=== PATIENT | male | born 1950 | race Caucasian/White ===

== ENCOUNTER 2016-11-02 09:05 | Outpatient (CLI) | payer MEDICARE, OTHER ==
[~2016-11-02 09:05] MED LIST: ALBUTEROL NEB 2.5 MG/3 ML INH SCH
== END 2016-11-02 09:06 | disposition home or self-care (01) ==
LOC: RT 09:05
PROVIDERS: ATTEND Specialist
DX: J45.909 Unspecified asthma, uncomplicated (principal); J44.9 Chronic obstructive pulmonary disease, unspecified
CPT/HCPCS: 94060; 94729; J7613

== ENCOUNTER 2017-07-26 11:17 | Emergency (ER) | payer MEDICARE, OTHER ==
[2017-07-26 11:39] LABS: BASOPHILS # (AUTO) 0.2 10^3/uL (0.0-0.1); BASOPHILS % (AUTO) 2.5 %; EOSINOPHILS % (AUTO) 0.3 %; HGB - HEMOGLOBIN 16.9 g/dL (14.0-18.0); LYMPHOCYTES # (AUTO) 1.2 10^3/uL (1.5-3.5); LYMPHOCYTES % (AUTO) 11.8 %; MEAN CORPUSCULAR HEMOGLOBIN 37.5 pg (27.0-31.0); MEAN CORPUSCULAR HGB CONC 34.5 g/dL (32.0-36.0); MEAN CORPUSCULAR VOLUME 108.7 fL (80.0-94.0); MONOCYTES # (AUTO) 0.6 10^3/uL (0.0-1.0); NEUTROPHILS # (AUTO) 7.8 10^3/uL (1.5-6.6); NEUTROPHILS % (AUTO) 79.4 %; PLT - PLATELET COUNT 305 10^3/uL (130-450); RED BLOOD COUNT 4.51 10^6/uL (4.70-6.10); RED CELL DISTRIBUTION WIDTH 15.2 % (12.0-15.0); WHITE BLOOD COUNT 9.8 x10^3/uL (4.8-10.8)
--- NOTE | 2017-07-26 11:41 | ED Physician Documentation ---
PD HPI CHEST PAIN - Stated complaint Stated Complaint: CHEST PX - Chief complaint Chief Complaint: Cardiac - History obtained from History obtained from: Patient - History of Present Illness Timing - onset: How many hours ago (2-3), Today Timing - onset during: Rest Timing - duration: Hours Timing - details: Abrupt onset, Still present Quality: Pressure, Tightness, Aching, Pain Location: Substernal, Left chest Radiation: Back. No: Jaw, Neck, Left upper extremity Improved by: No: Rest Worsened by: Exertion (worse walking around). No: Inspiration, Movement, Palpation Associated symptoms: Shortness of air, Nausea, General Weakness. No: Vomiting, Feeling faint / dizzy, Palpitations Similar symptoms before: Has not had sx before (chest pressure was just this morning. Has had a feeling of general weakness, nausea, poor appetite, and some vomiting the past 5-6 days. No hematemesis. no diarrhea. Has had some epigastric stomach pains with eating. No chest pains with that though.) Recently seen: Not recently seen Review of Systems Constitutional: denies: Fever, Chills Nose: denies: Rhinorrhea / runny nose, Congestion Throat: denies: Sore throat Cardiac: denies: Palpitations, Pedal edema, Calf pain Respiratory: denies: Dyspnea, Cough, Wheezing GI: reports: Abdominal Pain, Nausea, Vomiting. denies: Diarrhea, Hematemesis, Bloody / black stool : denies: Dysuria, Frequency Skin: denies: Rash, Lesions Neurologic: reports: Generalized weakness, Near syncope. denies: Focal weakness , Numbness, Confused, Altered mental status Psychiatric: denies: Depressed, Insomnia Endocrine: denies: Weight loss Immunocompromised: denies: Immunocompromised PD PAST MEDICAL HISTORY - Past Medical History Past Medical History: Yes Cardiovascular: Hypertension Respiratory: Asthma Neuro: None Endocrine/Autoimmune: None - Past Surgical History Past Surgical History: No - Present Medications Home Medications: Ambulatory Orders Medication Instructions Recorded Confirmed Albuterol Sulfate 05/19/15 05/19/15 Magnesium Oxide [Magnesium] 07/26/17 hydroCHLOROthiazide 07/26/17 [Hydrochlorothiazide] - Allergies Allergies/Adverse Reactions: Allergies Allergy/AdvReac Type Severity Reaction Status Date / Time No Known Drug Allergies Allergy Verified 05/19/15 07:10 - Living Situation Living Situation: reports: With spouse/s.o. Living Arrangement: reports: At home - Social History Does the pt smoke?: No Smoking Status: Never smoker Does the pt drink ETOH?: Yes ETOH Use: Beer (2-3 drinks nightly) Does the pt have substance abuse?: No - Family History Family history: reports: CAD - POLST Patient has POLST: No PD ED PE NORMAL - Vitals Vital signs reviewed: Yes - General General: Alert and oriented X 3, No acute distress, Well developed/nourished - HEENT HEENT: Atraumatic, Pharynx benign - Neck Neck: Supple, no meningeal sign, No adenopathy - Cardiac Cardiac: RRR, No murmur - Respiratory Respiratory: Clear bilaterally - Abdomen Abdomen: Normal bowel sounds, Soft, Non distended, No organomegaly, Other (mild tender epigastric area. Not tender RUQ; negative Screven sign.) - Male Male : Deferred - Rectal Rectal: Deferred - Back Back: No CVA TTP - Derm Derm: Normal color - Extremities Extremities: No deformity, No tenderness to palpate, Normal ROM s pain, No edema - Neuro Neuro: Alert and oriented X 3, No motor deficit, Normal speech Results - Vitals Vitals: Vital Signs - 24 hr 07/26/17 07/26/17 07/26/17 11:21 12:37 14:09 Temperature 36.4 C L Heart Rate 70 71 66 Respiratory 20 16 16 Rate Blood Pressure 161/106 H 103/77 116/91 H O2 Saturation 95 92 100 Oxygen O2 Source Room air - EKG (time done) 11:21 Rate: Rate (enter#) (57) Rhythm: Sinus bradycardia [place]: Normal Intervals: Normal [place] QRS: Normal Ischemia: Normal ST segments. No: ST elevation c/w ischemia, ST depression - Labs Labs: Laboratory Tests 07/26/17 07/26/17 07/26/17 11:25 11:25 11:25 WBC 9.8 RBC 4.51 L Hgb 16.9 Hct 49.0 MCV 108.7 H MCH 37.5 H MCHC 34.5 RDW 15.2 H Plt Count 305 MPV 7.0 L Neut # 7.8 H Lymph # 1.2 L [place] # 0.6 Eos # 0.0 Baso # 0.2 H Absolute Nucleated RBC 0.00 Nucleated RBC % 0.0 Sodium 129 L Potassium 3.3 L Chloride 86 L Carbon Dioxide 31 Anion Gap 12.0 BUN 9 Creatinine 0.9 Estimated GFR (MDRD) 84 L Glucose 109 H Calcium 9.6 Magnesium Total Bilirubin 1.6 H AST 44 H ALT 34 Alkaline Phosphatase 102 Troponin I 0.57 H* B-Natriuretic Peptide Total Protein 8.5 H Albumin 4.7 Globulin 3.8 Albumin/Globulin Ratio 1.2 Lipase 24 Ethyl Alcohol 07/26/17 07/26/17 07/26/17 11:25 11:25 13:36 WBC RBC Hgb Hct MCV MCH MCHC RDW Plt Count MPV Neut # Lymph # [place] # Eos # Baso # Absolute Nucleated RBC Nucleated RBC % Sodium Potassium Chloride Carbon Dioxide Anion Gap BUN Creatinine Estimated GFR (MDRD) Glucose Calcium Magnesium 2.1 Total Bilirubin AST ALT Alkaline Phosphatase Troponin I 1.99 H* B-Natriuretic Peptide 72 Total Protein Albumin Globulin Albumin/Globulin Ratio Lipase Ethyl Alcohol < 5.0 - Rads (name of study) chest Radiology: Prelim report reviewed, EMP read contemporaneously (no acute process. No CHF. heart size normal. Normal mediastinum. ) PD MEDICAL DECISION MAKING - ED course Complexity details: reviewed results (has elevated troponin concerning for ACS. will treat with aspirin, NTG, heparin, and beta nickolas. ), considered differential, d/w patient, d/w hospice care consultant ([facility], who accepts transfer.) Departure - Departure Disposition: 02 Transfer Acute Care Hosp Clinical Impression: Elevated troponin, Dehydration, Non-STEMI (non-ST elevated myocardial infarction) Chest pain Qualifiers: Chest pain type: precordial pain Qualified Code(s): R07.2 - Precordial pain Gastritis, acute Qualifiers: Gastritis type: unspecified gastritis Gastritis bleeding: without bleeding Qualified Code(s): K29.00 - Acute gastritis without bleeding Condition: Stable Record reviewed to determine appropriate education?: Yes
[2017-07-26 11:51] LABS: ALBUMIN 4.7 g/dL (3.2-5.5); ALBUMIN/GLOBULIN RATIO 1.2 (1.0-2.2); BILIRUBIN,TOTAL 1.6 mg/dL (0.2-1.0); CALCIUM 9.6 mg/dL (8.5-10.3); CREATININE 0.9 mg/dL (0.6-1.2); TOTAL PROTEIN 8.5 g/dL (6.7-8.2)
[2017-07-26] MEDS ORDERED: SODIUM CHLORIDE 0.9% 1,000 ML IV ONE (12:14)
[2017-07-26] MEDS ORDERED: ONDANSETRON 4 MG/2 ML VIAL IVP STA (12:14)
[2017-07-26] MEDS ORDERED: NITROGLYCERIN SL 0.4 MG TABLET SL STA (12:14)
[2017-07-26] MEDS ORDERED: FAMOTIDINE 20 MG/50 ML 50 ML IV ONE (12:15)
[2017-07-26] MEDS ORDERED: MAG HYDROX/AL HYDROX/SIMETH 30 ML UDC PO STA (12:15)
[2017-07-26] MEDS ORDERED: METOPROLOL 5 MG/5 ML VIAL IVP STA (12:17)
[2017-07-26] MEDS: NITROGLYCERIN 2% PASTE TOP STA ×2 (12:30→13:07)
[2017-07-26 12:37] LABS: MAGNESIUM 2.1 mg/dL (1.7-2.8)
--- NOTE | 2017-07-26 12:43 | XRAY Report ---
EXAM: CHEST RADIOGRAPHY EXAM DATE: 07/26/2017 11:59 AM. CLINICAL HISTORY: Chest pain. COMPARISON: Chest x-ray 05/04/2015. TECHNIQUE: 2 views. FINDINGS: Lungs/Pleura: No focal opacities evident. No pleural effusion. No pneumothorax. Normal volumes. Mediastinum: Heart and mediastinal contours are unremarkable. Other: None. IMPRESSION: Normal 2-view chest radiography. [facility] Referring Provider Line: [phone] SITE ID: [id number]
[2017-07-26] MEDS ORDERED: HEPARIN 25000UNITS/500ML (D5W) 25,000 UNIT/500 ML BAG IV STA (12:55)
[2017-07-26] MEDS ORDERED: HEPARIN 5,000 UNIT/ML VIAL IVP STA (12:55)
[2017-07-26 15:32] VITALS: BP 114/73
== END 2017-07-26 15:23 | disposition short-term general hospital (02) ==
LOC: ED 11:17
DX: I21.4 Non-ST elevation (NSTEMI) myocardial infarction (principal); K29.00 Acute gastritis without bleeding; R07.2 Precordial pain; I10 Essential (primary) hypertension; J45.909 Unspecified asthma, uncomplicated
CPT/HCPCS: 36415; 71046; 80053; 83690; 83735; 83880; 84484; 85025; 93005; 96365; 96366; 96367; 96375; 96376; 99284; 99285; A9270; G0480; 80320

== ENCOUNTER 2017-07-26 15:25 | Outpatient (CLI) | payer MEDICARE, OTHER | END 2017-07-26 15:26 | disposition short-term general hospital (02) | LOC: EMS 15:25 | PROVIDERS: ATTEND Surgery | DX: R07.9 Chest pain, unspecified (principal) | CPT/HCPCS: A0425; A0426 ==

== ENCOUNTER 2017-09-09 13:09 | Emergency (ER) | payer MEDICARE, OTHER ==
[2017-09-09] MEDS ORDERED: SODIUM CHLORIDE 0.9% 500 ML IV ONE (13:20)
--- NOTE | 2017-09-09 13:22 | ED Physician Documentation ---
History of Present Illness - Stated complaint Stated Complaint: LOW BP - History obtained from History obtained from: Patient, Family () - History of Present Illness Timing: Other (He had an an STEMI on July 26, he had a cath with some for blockage in the posterior part of the heart but he was not intervened upon per his description. He was started on metoprolol on a very low-dose of lisinopril. Ever since then he has been feeling woozy and lightheaded with some episodes of hypotension, he had the lowest number he had seen today at 81/ 42 at home. Of note prior to that at home was 113 systolic, he does not remember the diastolic, and he did take his medications including lisinopril at 2.5 mg and metoprolol. He denies any chest pain or shortness of breath, no pedal edema. He does have a chronic cough and nocturia.) Review of Systems Constitutional: reports: Fatigue. denies: Fever, Chills Cardiac: denies: Chest pain / pressure, Palpitations, Pedal edema, Calf pain Respiratory: denies: Dyspnea, Cough GI: denies: Abdominal Pain, Bloody / black stool PD PAST MEDICAL HISTORY - Past Medical History Cardiovascular: Hypertension Respiratory: Asthma Endocrine/Autoimmune: None - Past Surgical History Past Surgical History: No - Present Medications Home Medications: Ambulatory Orders Medication Instructions Recorded Confirmed Albuterol Sulfate 0.63 mg IN PRN PRN 05/19/15 09/09/17 Magnesium Oxide [Magnesium] 500 mg PO DAILY 07/26/17 09/09/17 Aspirin [Adult Aspirin Regimen] 81 mg PO DAILY 09/09/17 09/09/17 Atorvastatin Calcium 40 mg PO DAILY PM 09/09/17 09/09/17 Lisinopril 2.5 mg PO DAILY 09/09/17 09/09/17 Metoprolol Succinate/Hctz 25 mg PO DAILY 09/09/17 09/09/17 [Metoprolol ER-Hctz 25-12.5 mg] - Allergies Allergies/Adverse Reactions: Allergies Allergy/AdvReac Type Severity Reaction Status Date / Time No Known Drug Allergies Allergy Verified 09/09/17 13:23 - Social History Does the pt smoke?: No Smoking Status: Never smoker Does the pt drink ETOH?: Yes Does the pt have substance abuse?: No - POLST Patient has POLST: No PD ED PE NORMAL - Vitals Vital signs reviewed: Yes - General General: Alert and oriented X 3, No acute distress - HEENT HEENT: PERRL, EOMI - Neck Neck: Supple, no meningeal sign, No bony TTP - Cardiac Cardiac: RRR, No murmur - Respiratory Respiratory: No respiratory distress, Clear bilaterally - Abdomen Abdomen: Non tender - Back Back: No CVA TTP, No spinal TTP - Extremities Extremities: No edema, No calf tenderness / cord - Neuro Neuro: Alert and oriented X 3, Normal speech - Psych Psych: Normal mood, Normal affect Results - Vitals Vitals: Vital Signs - 24 hr 09/09/17 13:15 Temperature 36.1 C L Heart Rate 64 Respiratory 18 Rate Blood Pressure 112/66 O2 Saturation 97 Oxygen O2 Source Room air - EKG (time done) 1324 Rate: Rate (enter#) (60) Rhythm: NSR (with occ PAC) [place]: Normal QRS: Low voltage Ischemia: Non specific changes (Compared with the last EKG on the chart dated July 26 of this year, he had slight ST depression in the anterior precordial leads that has since resolved which is not unsurprising since he was having and a non-STEMI then.) - Labs Labs: Laboratory Tests 09/09/17 09/09/17 13:25 13:25 WBC 7.3 RBC 3.49 L Hgb 13.3 L Hct 38.7 L MCV 110.8 H MCH 38.0 H MCHC 34.3 RDW 16.1 H Plt Count 311 MPV 7.1 L Manual Slide Review Indicated Sodium 126 L Potassium 4.3 Chloride 91 L Carbon Dioxide 28 Anion Gap 7.0 BUN 10 Creatinine 0.9 Estimated GFR (MDRD) 84 L Glucose 100 Calcium 9.1 Total Bilirubin 1.4 H AST 44 H ALT 34 Alkaline Phosphatase 77 Total Protein 6.5 L Albumin 3.5 Globulin 3.0 Albumin/Globulin Ratio 1.2 Lipase 31 PD MEDICAL DECISION MAKING - ED course ED course: 67-year-old gentleman with hypotension at home, probably from new medications. He was observed in the department and he was without's complaints or signs of distress, and his blood pressures were normal to low normal here. He was advised to stop lisinopril. We also discussed the hyponatremia, high MCV, and mildly elevated liver enzymes. He does drink several glasses of wine a daily and it was advised him that he decrease his alcohol intake. - Sepsis Event Vital Signs: Vital Signs - 24 hr 09/09/17 13:15 Temperature 36.1 C L Heart Rate 64 Respiratory 18 Rate Blood Pressure 112/66 O2 Saturation 97 Oxygen O2 Source Room air Departure - Departure Disposition: 01 Home, Self Care Clinical Impression: Alcoholic liver damage Hypotension Qualifiers: Hypotension type: hypotension due to drug Qualified Code(s): I95.2 - Hypotension due to drugs Condition: Good Record reviewed to determine appropriate education?: Yes Comments: Stop the lisinopril. Follow-up with your generation technician, next available appointment. If you continue to have low blood pressures you can decrease the metoprolol to half a pill twice a day. Decrease your alcohol intake. Return if worse or if new symptoms develop.
[2017-09-09 13:44] LABS: BASOPHILS % (AUTO) 0.6 %; EOSINOPHILS % (AUTO) 0.6 %; HGB - HEMOGLOBIN 13.3 g/dL (14.0-18.0); LYMPHOCYTES # (AUTO) 1.2 10^3/uL (1.5-3.5); LYMPHOCYTES % (AUTO) 16.5 %; MEAN CORPUSCULAR HGB CONC 34.3 g/dL (32.0-36.0); MEAN CORPUSCULAR VOLUME 110.8 fL (80.0-94.0); MEAN PLATELET VOLUME 7.1 fL (7.4-11.4); MONOCYTES # (AUTO) 1.1 10^3/uL (0.0-1.0); MONOCYTES % (AUTO) 15.7 %; NEUTROPHILS # (AUTO) 4.9 10^3/uL (1.5-6.6); NEUTROPHILS % (AUTO) 66.6 %; PLT - PLATELET COUNT 311 10^3/uL (130-450); RED BLOOD COUNT 3.49 10^6/uL (4.70-6.10); RED CELL DISTRIBUTION WIDTH 16.1 % (12.0-15.0); WHITE BLOOD COUNT 7.3 x10^3/uL (4.8-10.8)
[2017-09-09 14:02] LABS: ALBUMIN 3.5 g/dL (3.2-5.5); ALBUMIN/GLOBULIN RATIO 1.2 (1.0-2.2); BILIRUBIN,TOTAL 1.4 mg/dL (0.2-1.0); CALCIUM 9.1 mg/dL (8.5-10.3); CREATININE 0.9 mg/dL (0.6-1.2); TOTAL PROTEIN 6.5 g/dL (6.7-8.2)
[2017-09-09 14:21] LABS: PLATELET ESTIMATE, MANUAL NORMAL (130-450,000) (NORMAL); PLATELET MORPHOLOGY 1+ LARGE PLATELETS (NORMAL)
[2017-09-09 14:22] LABS: RBC MORPHOLOGY (MULTIPLE) 3+ MACROCYTOSIS (NORMAL)
[2017-09-09 14:38] VITALS: BP 112/67
== END 2017-09-09 14:43 | disposition home or self-care (01) ==
LOC: ED 13:09
DX: I95.2 Hypotension due to drugs (principal); K70.9 Alcoholic liver disease, unspecified; I10 Essential (primary) hypertension; Z79.82 Long term (current) use of aspirin
CPT/HCPCS: 36415; 80053; 83690; 85025; 93005; 96360; 99283; 99284

== ENCOUNTER 2018-03-23 08:57 | Emergency (ER) | payer MEDICARE, OTHER ==
[2018-03-23 11:49] LABS: BASOPHILS % (AUTO) 0.4 %; EOSINOPHILS % (AUTO) 0.3 %; LYMPHOCYTES # (AUTO) 1.2 10^3/uL (1.5-3.5); LYMPHOCYTES % (AUTO) 14.8 %; MEAN CORPUSCULAR HGB CONC 34.2 g/dL (32.0-36.0); MEAN CORPUSCULAR VOLUME 108.4 fL (80.0-94.0); MEAN PLATELET VOLUME 7.5 fL (7.4-11.4); MONOCYTES # (AUTO) 1.4 10^3/uL (0.0-1.0); MONOCYTES % (AUTO) 16.5 %; NEUTROPHILS # (AUTO) 5.6 10^3/uL (1.5-6.6); PLT - PLATELET COUNT 274 10^3/uL (130-450); RED BLOOD COUNT 3.77 10^6/uL (4.70-6.10); RED CELL DISTRIBUTION WIDTH 13.6 % (12.0-15.0); WHITE BLOOD COUNT 8.2 x10^3/uL (4.8-10.8)
--- NOTE | 2018-03-23 11:53 | XRAY Report ---
Reason: cellulitis with necrosis concern subcut air Procedure Date: 03/23/2018 Accession Number: [id number] / [id number] Procedure: XR - Foot 3 View LT CPT Code: FULL RESULT: EXAM: LEFT FOOT RADIOGRAPHY EXAM DATE: 03/23/2018 11:36 AM. CLINICAL HISTORY: Cellulitis with necrosis. Concerned about a cut. COMPARISON: XR FOOT COMPLETE MIN 3 VIEWS 05/07/2009 1:24 PM LT. FOOT 01/12/2006 12:27 AM. TECHNIQUE: 3 views. FINDINGS: Bones: No osseous sclerosis or pat destruction is identified. No fractures or bone lesions. Joints: Normal. No subluxations. Soft Tissues: Bandage material is seen at the base of the great toe. No definite soft tissue defect or soft tissue gas is identified. Vascular calcifications are noted. IMPRESSION: No evidence of soft tissue gas or pat osseous destruction. [facility]
[2018-03-23 11:58] LABS: CALCIUM 8.8 mg/dL (8.5-10.3); CREATININE 0.6 mg/dL (0.6-1.2)
[2018-03-23] MEDS ORDERED: ceFAZolin 1 GM in SODIUM CHLORIDE 0.9% MINIBAG 100 ML IV STA (12:37)
[2018-03-23] MEDS ORDERED: TETANUS/DIPHTHERIA/PERTUSSIS 0.5 ML SYRINGE IM ONE (12:37)
--- NOTE | 2018-03-23 12:40 | ED Physician Documentation ---
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 - no feeling in feet states hit R foot in bathroom a few days ago today noticed sig increased redness and blood blister no fever chills Review of Systems Constitutional: denies: Fever, Chills Musculoskeletal: reports: Extremity swelling Endocrine: denies: Easy bruising / bleeding Immunocompromised: denies: Immunocompromised PD PAST MEDICAL HISTORY - Past Medical History Cardiovascular: Hypertension Respiratory: Asthma Endocrine/Autoimmune: None - Past Surgical History Past Surgical History: No - Present Medications Home Medications: Ambulatory Orders Medication Instructions Recorded Confirmed Albuterol Sulfate 0.63 mg IN PRN PRN 05/19/15 09/09/17 Magnesium Oxide [Magnesium] 500 mg PO DAILY 07/26/17 09/09/17 Aspirin [Adult Aspirin Regimen] 81 mg PO DAILY 09/09/17 09/09/17 Atorvastatin Calcium 40 mg PO DAILY PM 09/09/17 09/09/17 Lisinopril 2.5 mg PO DAILY 09/09/17 09/09/17 Metoprolol Succinate/Hctz 25 mg PO DAILY 09/09/17 09/09/17 [Metoprolol ER-Hctz 25-12.5 mg] Amoxicillin 500 mg PO Q8HR #30 capsule 03/23/18 - Allergies Allergies/Adverse Reactions: Allergies Allergy/AdvReac Type Severity Reaction Status Date / Time No Known Drug Allergies Allergy Verified 03/23/18 09:16 - Social History Does the pt smoke?: No Smoking Status: Never smoker Does the pt drink ETOH?: Yes Does the pt have substance abuse?: No - Immunizations Immunizations are current?: Yes - POLST Patient has POLST: No PD ED PE NORMAL - Vitals Vital signs reviewed: Yes - Neck Neck: Supple, no meningeal sign - Cardiac Cardiac: RRR - Respiratory Respiratory: No respiratory distress, Clear bilaterally - Extremities Extremities: Other (RLE :foot warm, + pulses and cap refill, hemorrhagic bullae over 1st MTP and erythema to entire foot with small streak part way up the peacock, no palp crepitus) Results - Vitals Vitals: Vital Signs - 24 hr 03/23/18 09:13 Temperature 36.1 C L Heart Rate 90 Respiratory 18 Rate Blood Pressure 115/77 O2 Saturation 95 Oxygen O2 Source Room air - Labs Labs: Laboratory Tests 03/23/18 03/23/18 03/23/18 11:25 11:25 11:25 WBC 8.2 RBC 3.77 L Hgb 14.0 Hct 40.9 L MCV 108.4 H MCH 37.0 H MCHC 34.2 RDW 13.6 Plt Count 274 MPV 7.5 Neut # (Auto) 5.6 Lymph # (Auto) 1.2 L [place] # (Auto) 1.4 H Eos # (Auto) 0.0 Baso # (Auto) 0.0 Absolute Nucleated RBC 0.00 Nucleated RBC % 0.0 Sodium 131 L Potassium 3.9 Chloride 98 L Carbon Dioxide 24 Anion Gap 9.0 BUN 8 Creatinine 0.6 Estimated GFR (MDRD) 134 Glucose 99 Lactic Acid 1.4 Calcium 8.8 - Rads (name of study) foot Radiology: See rad report (no gas or bony destruction) PD MEDICAL DECISION MAKING - ED course ED course: asked ortho Dr Jasos to come see pt - concern for nec fasc - he saw pt and does not feel this is nec fasc - he drained the bullae and dressed the foot and rec pt may be dced home on amox with 48 hr ortho fup - see consult Departure - Departure Disposition: 01 Home, Self Care Clinical Impression: Traumatic bulla Cellulitis Qualifiers: Site of cellulitis: extremity Site of cellulitis of extremity: lower extremity Laterality: right Qualified Code(s): L03.115 - Cellulitis of right lower limb Condition: Good Instructions: ED Infec Skin Cellulitis Follow-Up: Sunitha Jasso MD [Provider Admit Priv/Credential] - (Friday in clinic - call at 8 AM Fri to schedule) Prescriptions: Amoxicillin 500 mg PO Q8HR #30 capsule Comments: Keep the foot elevated as much as possible. Wear the post op shoe for protection. Take the antibiotic as prescribed. Follow up with Dr Jasso Fri. Return to the ER if worse in any way
--- NOTE | 2018-03-23 13:26 | ONCOLOGY / HEMATOLOGY ---
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 TD: 03/23/2018 13:24 MTDD
[2018-03-23 17:09] VITALS: BP 147/54
== END 2018-03-23 13:14 | disposition home or self-care (01) ==
LOC: ED 08:57
DX: S90.421A Blister (nonthermal), right great toe, initial encounter (principal); W22.8XXA Striking against or struck by other objects, initial encounter; L03.115 Cellulitis of right lower limb; G62.1 Alcoholic polyneuropathy; I10 Essential (primary) hypertension; Z79.82 Long term (current) use of aspirin
CPT/HCPCS: 36415; 80048; 83605; 85025; 87040; 90471; 96374; 99283

== ENCOUNTER 2018-07-20 07:18 | Emergency (ER) | payer MEDICARE, OTHER ==
[2018-07-20] MEDS ORDERED: KETOROLAC 60 MG/2 ML VIAL IM STA (07:34)
--- NOTE | 2018-07-20 07:37 | ED Physician Documentation ---
History of Present Illness - Stated complaint Stated Complaint: RT LEG PX - Chief complaint Chief Complaint: Trauma Ext - History obtained from History obtained from: Patient - History of Present Illness Timing: How many days ago (10) Pain level max: 8 Pain level now: 6 - Additonal information Additional information: 67-year-old male was getting up to use the bathroom approximately 10 days ago when he fell landing on the right hip. Had pain initially, this resolved after a day or 2. Over the past 3 days has started to get pain in the right hip again. Took Motrin last night without relief. Is using a cane in his right hand to help him walk. He has not had any recurrent falls. No head injuries. Better with rest and worse with movement. Review of Systems Constitutional: denies: Fever, Chills GI: denies: Vomiting : denies: Incontinent Musculoskeletal: denies: Neck pain, Back pain Neurologic: denies: Focal weakness, Numbness, Headache PD PAST MEDICAL HISTORY - Past Medical History Cardiovascular: Hypertension Respiratory: Asthma Endocrine/Autoimmune: None - Past Surgical History Past Surgical History: No - Present Medications Home Medications: Ambulatory Orders Medication Instructions Recorded Confirmed Albuterol Sulfate 0.63 mg IN PRN PRN 05/19/15 09/09/17 Magnesium Oxide [Magnesium] 500 mg PO DAILY 07/26/17 09/09/17 Aspirin [Adult Aspirin Regimen] 81 mg PO DAILY 09/09/17 09/09/17 Atorvastatin Calcium 40 mg PO DAILY PM 09/09/17 09/09/17 Lisinopril 2.5 mg PO DAILY 09/09/17 09/09/17 Metoprolol Succinate/Hctz 25 mg PO DAILY 09/09/17 09/09/17 [Metoprolol ER-Hctz 25-12.5 mg] Amoxicillin 500 mg PO Q8HR #30 capsule 03/23/18 Cyclobenzaprine [Flexeril] 10 mg PO TID PRN #20 tablet 07/20/18 Hydrocodone/Acetaminophen 1 - 2 each PO Q6H PRN #14 tablet 07/20/18 [Hydrocodon-Acetaminophen 5-325] Meloxicam [Mobic] 15 mg PO DAILY PRN #20 tablet 07/20/18 - Allergies Allergies/Adverse Reactions: Allergies Allergy/AdvReac Type Severity Reaction Status Date / Time No Known Drug Allergies Allergy Verified 07/20/18 07:28 - Social History Does the pt smoke?: No Smoking Status: Never smoker Does the pt drink ETOH?: Yes Does the pt have substance abuse?: No - Immunizations Immunizations are current?: Yes - POLST Patient has POLST: No PD ED PE NORMAL - Vitals Vital signs reviewed: Yes - General General: Alert and oriented X 3, No acute distress - HEENT HEENT: Moist mucous membranes - Neck Neck: Supple, no meningeal sign - Cardiac Cardiac: RRR - Respiratory Respiratory: No respiratory distress, Clear bilaterally - Back Back: No spinal TTP - Derm Derm: Warm and dry, No rash - Extremities Extremities: Other (Tender to palpation over the right hip, greater trochanter. No pain with internal and external rotation. Mild pain with passive range of motion. Most of the pain is with active range of motion. Neurovascular intact. Otherwise normal exam of the right lower extremity.) - Neuro Neuro: Alert and oriented X 3 - Psych Psych: Normal mood, Normal affect Results - Vitals Vitals: Vital Signs - 24 hr 07/20/18 07/20/18 07:20 09:37 Temperature 36.0 C L Heart Rate 92 89 Respiratory 18 16 Rate Blood Pressure 120/78 144/83 H O2 Saturation 97 97 Oxygen O2 Source Room air - Rads (name of study) Right hip x-ray Radiology: Prelim report reviewed, EMP read contemporaneously, See rad report (Acute minimally displaced fracture of the greater trochanter of the right pr oximal femur. No femoral neck fracture identified. 2. Bones appear mildly diffusely demineralized. ) PD MEDICAL DECISION MAKING - ED course Complexity details: reviewed results, re-evaluated patient, considered differential, d/w patient, d/w regulatory services consultant ED course: 59-year-old male presents to the emergency department after a fall onto the right hip 10 days ago. Appears to have a minimally displaced fracture of the greater trochanter of the right proximal femur. No femoral neck fracture identified. Discussed the case with Dr. Alexander, orthopedics on-call who recommends weightbearing as tolerated and follow up in clinic. Patient was given a walker. Patient counseled regarding signs and symptoms for which I believe and urgent re-evaluation would be necessary. Patient with good understanding of and agreement to plan and is comfortable going home at this time This document was made in part using voice recognition software. While efforts are made to proofread this document, sound alike and grammatical errors may occur. Departure - Departure Disposition: 01 Home, Self Care Clinical Impression: Greater trochanter fracture Qualifiers: Encounter type: initial encounter Fracture type: closed Fracture alignment: displaced Laterality: right Qualified Code(s): S72.111A - Displaced fracture of greater trochanter of right femur, initial encounter for closed fracture Condition: Good Instructions: ED Fx Lower Ext Follow-Up: Provider,Other [Primary Care Provider] - Within 1 week [facility] [Provider Group] - Within 1 week Prescriptions: Cyclobenzaprine [Flexeril] 10 mg PO TID PRN #20 tablet PRN Reason: Spasms Hydrocodone/Acetaminophen [Hydrocodon-Acetaminophen 5-325] 1 - 2 each PO Q6H PRN #14 tablet PRN Reason: pain Meloxicam [Mobic] 15 mg PO DAILY PRN #20 tablet PRN Reason: pain Comments: Your x-ray shows a small fracture to your greater trochanter which is in your hip but is not an operative fracture. These are stable. You can bear weight as tolerated. Follow-up with your doctor for further care. The muscle relaxants should help your pain as well. Do not drive or operate heavy machinery while taking the flexeril Do not drink alcohol or drive while on narcotic pain medicine. Note that many narcotic pain relievers also contain tylenol/acetaminophen. Please ensure that your total dose of acetaminophen from all sources does not exceed 3 grams (3000mg) per day. You may constipated on this medication, take a stool softener such as "Colace" twice a day while you are on it. Also recommend a [id number] laxative such as senna or MiraLAX any day that you do not have a bowel movement. If you received narcotic pain medication in the emergency department, do not drive or operate machinery for the next 24 hours. Discharge Date/Time: 07/20/18 09:40
--- NOTE | 2018-07-20 08:33 | XRAY Report ---
Reason: R hip pain s/p fall 10 days ago Procedure Date: 07/20/2018 Accession Number: [id number] / [id number] Procedure: XR - Hip w/Pelvis 2-3V RT CPT Code: FULL RESULT: EXAM: RIGHT HIP RADIOGRAPHY EXAM DATE: 07/20/2018 07:59 AM HISTORY: R hip pain s/p fall 10 days ago. COMPARISONS: None. TECHNIQUE: 2 views. FINDINGS: Bones: Osteopenia is present. There is an acute minimally displaced fracture of the greater trochanter of the right proximal femur. The femoral neck and other visualized bones appear intact. No bone lesion. Joints: Normal. No dislocation. The hip joint space is preserved. Soft Tissues: Unremarkable. There are several calcified phleboliths in the pelvis. IMPRESSION: 1. Acute minimally displaced fracture of the greater trochanter of the right proximal femur. No femoral neck fracture identified. 2. Bones appear mildly diffusely demineralized. [facility]
[2018-07-20 09:38] VITALS: BP 144/83
== END 2018-07-20 09:40 | disposition home or self-care (01) ==
LOC: ED 07:18
DX: S72.111A Displaced fracture of greater trochanter of right femur, initial encounter for closed fracture (principal); W18.30XA Fall on same level, unspecified, initial encounter; Y93.01 Activity, walking, marching and hiking; I10 Essential (primary) hypertension; Z79.82 Long term (current) use of aspirin
CPT/HCPCS: 96372; 99283

== ENCOUNTER 2018-07-24 17:16 | Outpatient (CLI) | payer MEDICARE, OTHER | END 2018-07-24 17:17 | disposition critical access hospital (66) | LOC: EMS 17:16 | PROVIDERS: ATTEND Surgery | DX: M25.551 Pain in right hip (principal); R41.82 Altered mental status, unspecified; W19.XXXA Unspecified fall, initial encounter; Y92.009 Unspecified place in unspecified non-institutional (private) residence as the place of occurrence of the external cause | CPT/HCPCS: A0425; A0427 ==

== ENCOUNTER 2018-07-24 17:43 | Inpatient (IN) | payer MEDICARE, OTHER ==
[2018-07-24] MEDS ORDERED: HYDROmorphone 1 MG/ML CARPUJECT IVP STA (18:11)
--- NOTE | 2018-07-24 18:20 | ED Physician Documentation ---
History of Present Illness - Stated complaint Stated Complaint: CONFUSION/FALLS - Chief complaint Chief Complaint: Neuro - History obtained from History obtained from: Patient - History of Present Illness Timing: Today (This is a 67-year-old gentleman with history of coronary disease. Recent fall with a trochanter fracture of the right hip which was being treated conservatively. Fell again today twice and injured the left hip. He also has chronic back pain. He vacillates on whether or not he hit his head. He is mildly confused.) Review of Systems Ten Systems: 10 systems reviewed and negative Constitutional: denies: Fever, Chills Cardiac: denies: Chest pain / pressure, Palpitations Respiratory: denies: Dyspnea, Cough GI: denies: Abdominal Pain PD PAST MEDICAL HISTORY - Past Medical History Cardiovascular: Hypertension Respiratory: Asthma Endocrine/Autoimmune: None - Past Surgical History Past Surgical History: No - Present Medications Home Medications: Ambulatory Orders Medication Instructions Recorded Confirmed Albuterol Sulfate 0.63 mg IN PRN PRN 05/19/15 09/09/17 Magnesium Oxide [Magnesium] 500 mg PO DAILY 07/26/17 09/09/17 Aspirin [Adult Aspirin Regimen] 81 mg PO DAILY 09/09/17 09/09/17 Atorvastatin Calcium 40 mg PO DAILY PM 09/09/17 09/09/17 Lisinopril 2.5 mg PO DAILY 09/09/17 09/09/17 Metoprolol Succinate/Hctz 25 mg PO DAILY 09/09/17 09/09/17 [Metoprolol ER-Hctz 25-12.5 mg] Amoxicillin 500 mg PO Q8HR #30 capsule 03/23/18 Cyclobenzaprine [Flexeril] 10 mg PO TID PRN #20 tablet 07/20/18 Hydrocodone/Acetaminophen 1 - 2 each PO Q6H PRN #14 tablet 07/20/18 [Hydrocodon-Acetaminophen 5-325] Meloxicam [Mobic] 15 mg PO DAILY PRN #20 tablet 07/20/18 - Allergies Allergies/Adverse Reactions: Allergies Allergy/AdvReac Type Severity Reaction Status Date / Time bee venom protein (honey bee) Allergy Anaphylaxis Verified 07/24/18 17:56 - Social History Does the pt smoke?: No Smoking Status: Never smoker Does the pt drink ETOH?: Yes Does the pt have substance abuse?: No - Family History Family history: reports: Non contributory - Immunizations Immunizations are current?: Yes - POLST Patient has POLST: No PD ED PE NORMAL - Vitals Vital signs reviewed: Yes - General General: Alert and oriented X 3, No acute distress - HEENT HEENT: PERRL, EOMI - Neck Neck: Supple, no meningeal sign, No bony TTP - Cardiac Cardiac: RRR, No murmur - Respiratory Respiratory: No respiratory distress, Clear bilaterally - Abdomen Abdomen: Non tender - Back Back: No CVA TTP, No spinal TTP - Derm Derm: Normal color, Warm and dry - Extremities Extremities: Other (Left hip is quite tender, shortened and externally rotated and slightly flexed. No real pain or tenderness of the right hip. He has a skin tear over the lateral part of the left upper arm that appears fresh. Nothing to suture. No tenderness there.) - Neuro Neuro: Alert and oriented X 3, Normal speech - Psych Psych: Normal mood, Normal affect Results - Vitals Vitals: Vital Signs - 24 hr 07/24/18 07/24/18 07/24/18 17:48 19:13 19:30 Temperature 36.8 C Heart Rate 84 93 101 H Respiratory 18 19 26 H Rate Blood Pressure 158/78 H 129/87 H 130/92 H O2 Saturation 99 97 97 Oxygen O2 Source Room air - EKG (time done) 1820 Rate: Rate (enter#) (82) Rhythm: NSR [place]: Normal Intervals: Normal MT, RBBB (incomplete.) QRS: Normal Ischemia: Normal ST segments Computer interpretation: Agree with computer - Labs Labs: Laboratory Tests 07/24/18 07/24/18 07/24/18 19:46 19:46 19:46 WBC 12.2 H RBC 3.18 L Hgb 11.2 L Hct 34.0 L MCV 107.2 H MCH 35.4 H MCHC 33.0 RDW 17.3 H Plt Count 312 MPV 6.8 L Neut # (Auto) 9.6 H Lymph # (Auto) 1.3 L [place] # (Auto) 1.2 H Eos # (Auto) 0.0 Baso # (Auto) 0.1 Absolute Nucleated RBC 0.00 Nucleated RBC % 0.0 PT 13.3 H INR 1.2 Sodium 135 Potassium 4.5 Chloride 98 L Carbon Dioxide 25 Anion Gap 12.0 BUN 12 Creatinine 0.7 Estimated GFR (MDRD) 112 Glucose 119 H Calcium 9.0 Total Bilirubin 1.7 H AST 34 ALT 21 Alkaline Phosphatase 100 Total Protein 6.4 L Albumin 3.6 Globulin 2.8 Albumin/Globulin Ratio 1.3 Lipase 25 Ethyl Alcohol < 5.0 Blood Type Antibody Screen 07/24/18 19:46 WBC RBC Hgb Hct MCV MCH MCHC RDW Plt Count MPV Neut # (Auto) Lymph # (Auto) [place] # (Auto) Eos # (Auto) Baso # (Auto) Absolute Nucleated RBC Nucleated RBC % PT INR Sodium Potassium Chloride Carbon Dioxide Anion Gap BUN Creatinine Estimated GFR (MDRD) Glucose Calcium Total Bilirubin AST ALT Alkaline Phosphatase Total Protein Albumin Globulin Albumin/Globulin Ratio Lipase Ethyl Alcohol Blood Type A POSITIVE Antibody Screen NEGATIVE - Rads (name of study) CT Head and Cspine Radiology: EMP read contemporaneously (Atrophy DDD NAD) CXR Radiology: EMP read contemporaneously (NAD) Lhip and Pelvis Radiology: EMP read contemporaneously (Comminuted displaced intertrochanteric fr acture of the left femur, redemonstrated mildly displaced fracture of the greater trochanter of the right femur.) Procedures - Intubation Provider: Emergency physician Medications: Etomidate (20mg), Rocuronium (50mg) Blade: Suzette (4) Tube: Size-enter number (7.5), Cuffed, Marked at lips-enter cm (21) Route: Oral Confirmation: Direct visualization, Bilateral breath sounds, No abdominal breath sound, End tidal CO2, Pulse ox, Chest xray Complications: No compications PD MEDICAL DECISION MAKING - ED course ED course: 67-year-old gentleman with coronary disease but not on Plavix presents after a ground-level fall in the left hip with a displaced intertrochanteric fracture of the left hip. He is mildly confused, potentially from some alcohol withdrawal. Head CT was without acute change. Dr. Jasso was consulted and will probably take him to the OR tomorrow, and Dr. Villegas to the hospitalist will admit, we spoke at 7:35 PM. During his course he became increasingly agitated. He had a nonfocal neurologic exam that seems symmetric but was picking at things and this was consistent with severe alcohol withdrawal. He quit drinking 2 days ago, so the time course is right. He was administered divided doses of Ativan and eventually required intubation for airway protection. - Critical Care Time(min): 45 Time Includes: Direct patient care, Review records, Reassess patient, Document care, Coordinate care, Medical consult, Family consult for tx dec Data interpretation: Labs, Pulse ox, CXR Procedures included in critical care time: Peripheral IV Procedures excluded from critical care time: EKG Departure - Departure Disposition: 66 [facility] DC/Xfer Clinical Impression: Frequent falls, Confusion, Alcohol withdrawal Fracture, intertrochanteric, left femur Qualifiers: Encounter type: initial encounter Fracture type: closed Fracture alignment: displaced Qualified Code(s): S72.142A - Displaced intertrochanteric fracture of left femur, initial encounter for closed fracture CAD (coronary artery disease) Qualifiers: Coronary Disease-Associated Artery/Lesion type: [place] artery [place] vs. transplanted heart: [place] heart Associated angina: without angina Qualified Code(s): I25.10 - Atherosclerotic heart disease of [place] coronary artery without angina pectoris Head injury Qualifiers: Encounter type: initial encounter Qualified Code(s): S09.90XA - Unspecified injury of head, initial encounter Condition: Serious
--- NOTE | 2018-07-24 19:01 | CT Report ---
Reason: poss head inj Procedure Date: 07/24/2018 Accession Number: [id number] / [id number] Procedure: CT - CERVICAL SPINE WO CPT Code: FULL RESULT: EXAM: CT CERVICAL SPINE WITHOUT CONTRAST DATE: 07/24/2018 06:35 PM. HISTORY: Possible head injury. COMPARISONS: None. TECHNIQUE: Thin-section axial images were acquired of the cervical spine without contrast. Post-processing: Coronal and sagittal reformats. Other: None. In accordance with CT protocol optimization, one or more of the following dose reduction techniques were utilized for this exam: automated exposure control, adjustment of mA and/or KV based on patient size, or use of iterative reconstructive technique. FINDINGS: Alignment: There is a left convexity scoliosis. Patient is also rotated to the left at time of exam. Bones: No fracture or bone lesion. Interspace Levels/Facets: Mild diffuse degenerative disk space narrowing. There is also bilateral multilevel facet joint arthropathy. Musculature: Normal. No fatty atrophy. Other: The paravertebral and prevertebral soft tissues are unremarkable. The lung apices are clear. IMPRESSION: 1. No cervical spine fracture. 2. Mild multilevel disk and bilateral facet joint degenerative changes. RAD[facility]
[2018-07-24] MEDS ORDERED: LORazepam 2 MG/ML VIAL IVP STA ×3 (19:17→20:14)
[2018-07-24] MEDS ORDERED: ACETAMINOPHEN 325 MG TABLET PO PRN (19:38)
[2018-07-24] MEDS ORDERED: HYDROcod/ACETAM 5/325 MG TABLET PO PRN (19:38)
--- NOTE | 2018-07-24 19:38 | XRAY Report ---
Reason: preop Procedure Date: 07/24/2018 Accession Number: [id number] / [id number] Procedure: XR - Chest 1 View X-Ray CPT Code: 80038 FULL RESULT: EXAM: CHEST RADIOGRAPHY EXAM DATE: 07/24/2018 07:09 PM. CLINICAL HISTORY: Preop. COMPARISON: CHEST 2 VIEW 07/26/2017 11:43 AM. TECHNIQUE: 1 view. FINDINGS: A film artifact degrades image quality. A loop recorder projects over the mid left hemithorax. Heart size is normal. Calcified plaques in the thoracic aorta. No consolidation, pleural effusion, or pneumothorax visualized. IMPRESSION: No acute cardiopulmonary findings. RADIA
[2018-07-24 19:59] LABS: BASOPHILS # (AUTO) 0.1 10^3/uL (0.0-0.1); BASOPHILS % (AUTO) 0.6 %; EOSINOPHILS % (AUTO) 0.3 %; HGB - HEMOGLOBIN 11.2 g/dL (14.0-18.0); LYMPHOCYTES # (AUTO) 1.3 10^3/uL (1.5-3.5); LYMPHOCYTES % (AUTO) 10.5 %; MEAN CORPUSCULAR HEMOGLOBIN 35.4 pg (27.0-31.0); MEAN CORPUSCULAR VOLUME 107.2 fL (80.0-94.0); MEAN PLATELET VOLUME 6.8 fL (7.4-11.4); MONOCYTES # (AUTO) 1.2 10^3/uL (0.0-1.0); MONOCYTES % (AUTO) 9.7 %; NEUTROPHILS # (AUTO) 9.6 10^3/uL (1.5-6.6); NEUTROPHILS % (AUTO) 78.9 %; PLT - PLATELET COUNT 312 10^3/uL (130-450); RED BLOOD COUNT 3.18 10^6/uL (4.70-6.10); RED CELL DISTRIBUTION WIDTH 17.3 % (12.0-15.0); WHITE BLOOD COUNT 12.2 x10^3/uL (4.8-10.8)
[2018-07-24] MEDS ORDERED: SODIUM CHLORIDE 0.9% 1,000 ML IV SCH (20:00)
[2018-07-24 20:11] LABS: INR 1.2 (0.8-1.2); PT - PROTHROMBIN TIME 13.3 secs (9.9-12.6)
--- NOTE | 2018-07-24 20:12 | XRAY Report ---
Reason: hip inj Procedure Date: 07/24/2018 Accession Number: [id number] / [id number] Procedure: XR - Hips 3-4V BILAT CPT Code: FULL RESULT: EXAM: LEFT FEMUR RADIOGRAPHY EXAM DATE: 07/24/2018 07:09 PM. CLINICAL HISTORY: L hip frx. COMPARISON: None available. TECHNIQUE: 2 views. FINDINGS: Left femur radiographs are submitted under the left hip accession. The bones are osteopenic. Partially visualized acute, displaced fracture of the proximal left femur. No acute fracture of the mid or distal left femur. Calcified atherosclerotic plaques in the distal femoral artery. Soft tissue swelling of the proximal left thigh. IMPRESSION: Osteopenia. No acute fracture or dislocation of the mid to distal left femur. [facility] ADDENDUM: 08/03/18 13:07 EXAM: BILATERAL HIP RADIOGRAPHY EXAM DATE: 07/24/2018 07:09 PM. CLINICAL HISTORY: Left hip fracture. COMPARISON: HIP W/PELVIS 2-3V RT 07/20/2018 7:59 AM. TECHNIQUE: 2 views. FINDINGS: The bones are osteopenic. There is an acute, comminuted intertrochanteric fracture of the proximal left femur, which demonstrates mild varus angulation. The lesser trochanter is mildly displaced approximately 12 mm. Again seen is the mildly displaced fracture of the greater trochanter of the proximal right femur. No additional fracture or dislocation visualized. Multiple phleboliths in the spermatic cords and left hemipelvis. IMPRESSION: Osteopenia. Acute, comminuted, mildly displaced intertrochanteric fracture of proximal left femur. Redemonstrated acute, mildly displaced fracture of the greater trochanter of the proximal right femur. RADIA
[2018-07-24] MEDS ORDERED: ROCURONIUM 50 MG/5 ML VIAL IVP STA (20:13)
[2018-07-24] MEDS ORDERED: ETOMIDATE 40 MG/20 ML VIAL IVP STA (20:13)
[2018-07-24] MEDS ORDERED: PROPOFOL 1000 MG/100 ML 100 ML IV STA (20:13)
--- NOTE | 2018-07-24 20:15 | XRAY Report ---
Reason: L hip frx Procedure Date: 07/24/2018 Accession Number: [id number] / [id number] Procedure: XR - Femur 2V LT CPT Code: FULL RESULT: EXAM: LEFT HIP RADIOGRAPHY EXAM DATE: 07/24/2018 07:09 PM. CLINICAL HISTORY: L hip frx. COMPARISON: HIP W/PELVIS 2-3V RT 07/20/2018 7:59 AM. TECHNIQUE: 2 views. FINDINGS: The left hip images are submitted under the left femur accession. The bones are osteopenic. There is an acute, comminuted intertrochanteric fracture of the proximal left femur, which demonstrates mild varus angulation. The lesser trochanter is mildly displaced approximately 12 mm. Again seen is the mildly displaced fracture of the greater trochanter of the proximal right femur. No additional fracture or dislocation visualized. Multiple phleboliths in the spermatic cords and left hemipelvis. IMPRESSION: Osteopenia. Acute, comminuted, mildly displaced intertrochanteric fracture of proximal left femur. Redemonstrated acute, mildly displaced fracture of the greater trochanter of the proximal right femur. [facility] ADDENDUM: 08/03/18 13:07 EXAM: LEFT FEMUR RADIOGRAPHY EXAM DATE: 07/24/2018 07:09 PM. CLINICAL HISTORY: Left hip fracture. COMPARISON: None available. TECHNIQUE: 2 views. FINDINGS: The bones are osteopenic. Partially visualized acute, displaced fracture of the proximal left femur. No acute fracture of the mid or distal left femur. Calcified atherosclerotic plaques in the distal femoral artery. Soft tissue swelling of the proximal left thigh. IMPRESSION: Osteopenia. No acute fracture or dislocation of the mid to distal left femur. RADIA
[2018-07-24 20:16] LABS: ALBUMIN 3.6 g/dL (3.2-5.5); ALBUMIN/GLOBULIN RATIO 1.3 (1.0-2.2); ALKALINE PHOSPHATASE 100 IU/L (42-121); ALT ALANINE AMINOTRANSFERASE 21 IU/L (10-60); AST ASPARTATE AMINOTRANSFERASE 34 IU/L (10-42); BILIRUBIN,TOTAL 1.7 mg/dL (0.2-1.0); BUN - BLOOD UREA NITROGEN 12 mg/dL (6-20); CARBON DIOXIDE - CO2 25 mmol/L (21-32); CHLORIDE 98 mmol/L (101-111); CREATININE 0.7 mg/dL (0.6-1.2); GFR - MDRD 112 (>89); GLUCOSE 119 mg/dL (70-100); LIPASE 25 U/L (22-51); SODIUM 135 mmol/L (135-145); TOTAL PROTEIN 6.4 g/dL (6.7-8.2)
[2018-07-24] MEDS ORDERED: PROPOFOL 1000 MG/100 ML 100 ML IV ONE (20:19)
[2018-07-24] MEDS ORDERED: ETOMIDATE 40 MG/20 ML VIAL IVP ONE (20:19)
[2018-07-24] MEDS ORDERED: ROCURONIUM 50 MG/5 ML VIAL IVP ONE (20:20)
--- NOTE | 2018-07-24 20:42 | CT Report ---
Reason: poss head inj Procedure Date: 07/24/2018 Accession Number: [id number] / [id number] Procedure: CT - HEAD WO CPT Code: FULL RESULT: EXAM: CT HEAD EXAM DATE: 07/24/2018 06:35 PM. CLINICAL HISTORY: Possible head inj. Head and neck pain. COMPARISON: None. TECHNIQUE: Multiaxial CT images were obtained from the foramen magnum to the vertex. Reformats: Sagittal and coronal. IV contrast: None. In accordance with CT protocol optimization, one or more of the following dose reduction techniques were utilized for this exam: automated exposure control, adjustment of mA and/or KV based on patient size, or use of iterative reconstructive technique. FINDINGS: Parenchyma: No intraparenchymal hemorrhage. No evidence of mass, midline shift, or CT findings of acute infarction. Jerome-white differentiation is distinct. Diffuse chronic microangiopathic white matter changes are evident. Extraaxial Spaces: Normal for age. No subdural or epidural collections identified. Ventricles: The ventricles and cortical sulci are enlarged, consistent with age-related tissue loss. Sinuses and orbits: Imaged paranasal sinuses, orbits, and mastoids show no significant abnormality. Bones: No evidence of fracture or calvarial defect. Other: None. IMPRESSION: Generalized age-related cortical atrophic changes without evidence of acute intracranial abnormality. RADIA
[2018-07-24] MEDS ORDERED: SODIUM CHLORIDE 0.9% 1,000 ML IV ONE (21:03)
[2018-07-24 21:11] LABS: GLUCOSE, URINE (UA) NEGATIVE (NEGATIVE); KETONES,URINE (UA) TRACE mg/dL (NEGATIVE); LEUKOCYTE ESTERASE, URINE NEGATIVE (NEGATIVE); NITRITE,URINE POSITIVE (NEGATIVE); OCCULT BLOOD,URINE LARGE (NEGATIVE); PH,URINE 5.5 PH (5.0-7.5); PROTEIN,URINE NEGATIVE (NEGATIVE); UROBILINOGEN,URINE 1 (NORMAL) E.U./dL (NORMAL)
[2018-07-24 21:26] LABS: BILIRUBIN,URINE NEGATIVE (NEGATIVE); CLARITY,URINE CLEAR (CLEAR); ICTOTEST,URINE NEGATIVE
[2018-07-24 21:29] LABS: BACTERIA,URINE Few /HPF (None Seen); SQUAMOUS EPITHELIAL CELL,UR RARE Squamous (<= Few)
[2018-07-24] MEDS: PROPOFOL 1000 MG/100 ML 100 ML IV SCH (21:30)
--- NOTE | 2018-07-24 21:43 | XRAY Report ---
Reason: Post intubation and OG tube placement Procedure Date: 07/24/2018 Accession Number: [id number] / [id number] Procedure: XR - Chest for Line Placement CPT Code: FULL RESULT: EXAM: CHEST RADIOGRAPHY EXAM DATE: 07/24/2018 08:46 PM. CLINICAL HISTORY: Post intubation and OG tube placement. COMPARISON: CHEST 1 VIEW 07/24/2018 6:37 PM. TECHNIQUE: 1 view. FINDINGS: Lungs/Pleura: No localized infiltrate, consolidation, effusion, or pneumothorax. Mediastinum: Within exam limitations, the cardiomediastinal contour is normal. Upper lobe vessels not distended. Other: Endotracheal tube tip at level of aortic arch about 6.1 cm above jacinto. Nasogastric tube well into the stomach, tip not seen. IMPRESSION: ETT tip 6.17 m above jacinto; NG tube in stomach. RADIA
--- NOTE | 2018-07-24 21:44 | HISTORY & PHYSICAL EXAMINATION ---
Chief Complaint - Chief Complaint Chief Complaint: fall and confused History of Present Illness - Admitted From Admitted From:: [facility] ED - History Obtained From Records Reviewed: yes History obtained from: patient's spouse Exam Limitations: encephalopathy - History of Present Illness HPI Comment/Other: Patient seen on 07/24/18 at 2015pm. Patient is a 67 y/o male who presented to the ED with his at bedside after falling at home. The history is mainly provided by the patient's because the patient is currently very confused and unable to provide. She reports that the patient has been falling frequently. He has a loop recorder. He saw cardiology a couple days ago and was cleared. Today he fell in their sun room. He had been disoriented prior to that. His found him with one shoe off, his belt undone and he was talking as though in conversation with someone, but there was no one else in the room. She points out that earlier today he was mowing the lawn but adds that he really shouldn't have been doing it. He drinks wine daily. His is not certain of how much he drinks. She thinks he drinks more than he admits. She reports that he last drank alcohol 2 days ago. The patient had a previous fall recently from which he sustained a non-displaced right intertrochanteric fracture. He was seen by orthopedics as an outpatient and this is being managed non-surgically. In the ED today work up included CT head and neck and xray of the hips and pelvis which showed a mildly displaced left intertrochanteric fracture. While the patient was still in the ED, he became significantly more confused and agitated, despite administration of ativan. He required restraints and a 1:1 setting of management. For concern of worsening withdrawal symptoms, he was intubated in the ED. His denies hearing the patient complains of any chest pain, MURPHY, abd pain, nausea, vomiting, diarrhea, fever or chills prior to presentation. History - Past Medical History Cardiovascular: reports: Hypertension, High cholesterol, Coronary artery disease Respiratory: reports: Asthma Endocrine/Autoimmune: reports: None Musculoskeletal: reports: Chronic back pain MRSA Hx?: No - Past Surgical History Other past surgical history: Do surgical history (per ) - Family & Social History Family History: Mother: CVA/TIA Living arrangement: At home Living Situation: With spouse/s.o. Social History Notes: Patient drinks heavily daily. Mainly wine. No current tobacco use. No ilicit drug use - Substance History Abuse: Recurrent use of substance despite neg consequences: Alcohol - POLST Patient has POLST: No POLST Status: Full Code Meds/Allgy - Home Medications Home Medications: Ambulatory Orders Medication Instructions Recorded Confirmed Albuterol Sulfate 0.63 mg IN PRN PRN 05/19/15 09/09/17 Magnesium Oxide [Magnesium] 500 mg PO DAILY 07/26/17 09/09/17 Aspirin [Adult Aspirin Regimen] 81 mg PO DAILY 09/09/17 09/09/17 Atorvastatin Calcium 40 mg PO DAILY PM 09/09/17 09/09/17 Lisinopril 2.5 mg PO DAILY 09/09/17 09/09/17 Metoprolol Succinate/Hctz 25 mg PO DAILY 09/09/17 09/09/17 [Metoprolol ER-Hctz 25-12.5 mg] Amoxicillin 500 mg PO Q8HR #30 capsule 03/23/18 Cyclobenzaprine [Flexeril] 10 mg PO TID PRN #20 tablet 07/20/18 Hydrocodone/Acetaminophen 1 - 2 each PO Q6H PRN #14 tablet 07/20/18 [Hydrocodon-Acetaminophen 5-325] Meloxicam [Mobic] 15 mg PO DAILY PRN #20 tablet 07/20/18 - Allergies Allergies/Adverse Reactions: Allergies Allergy/AdvReac Type Severity Reaction Status Date / Time bee venom protein (honey bee) Allergy Anaphylaxis Verified 07/24/18 17:56 Review of Systems - Other Findings Other Findings: ROS was limited because patient was very altered and agitated at time of exam. He was subsequently intubated, thus unable to provide history Prior Level of Functionality: He is independent of activities of daily living Exam - Vital Signs Vital Signs: Vital Signs x48h Temp Pulse Resp BP Pulse Ox 07/24/18 20:29 95 14 164/132 H 100 07/24/18 19:30 101 H 26 H 130/92 H 97 07/24/18 19:13 93 19 129/87 H 97 07/24/18 17:48 36.8 C 84 18 158/78 H 99 - Physical Exam General Appearance: positive: Moderate distress, Other (Agitated and confused) Eyes Bilateral: positive: Normal inspection, PERRL, EOMI ENT: positive: ENT inspection nml Neck: positive: Nml inspection, No JVD, Trachea midline Respiratory: negative: Chest non-tender, Wheezes, Rales, Rhonchi Cardiovascular: positive: Tachycardia. negative: JVD present Abdomen: positive: Non-tender, No distention. negative: Guarding, Rebound Back: positive: Nml inspection Skin: positive: Other (bruises present on legs) Extremities: negative: Full ROM Neurologic/Psychiatric: positive: Disoriented to person, Disoriented to place, Disoriented to time, Other (Intubated) Conclusion/Plan - Problem List (1) Alcohol withdrawal Conclusion/Plan: Patient currently intubated and on propofol drip Vit B12, folate and Magnesium levels pending Will replace accordingly (2) Fracture, intertrochanteric, left femur Conclusion/Plan: Pain management with dilaudid IV Dr Jasso (orthopedic) was consulted and will see the patient Qualifiers: Encounter type: initial encounter Fracture type: closed Fracture alignment: displaced Qualified Code(s): S72.142A - Displaced intertrochanteric fracture of left femur, initial encounter for closed fracture (3) CAD (coronary artery disease) Conclusion/Plan: On aspirin. Will continue daily Metoprolol on hold due to hypotension Qualifiers: Coronary Disease-Associated Artery/Lesion type: [place] artery [place] vs. transplanted heart: [place] heart Associated angina: without angina Qualified Code(s): I25.10 - Atherosclerotic heart disease of [place] coronary artery without angina pectoris (4) Hyperlipidemia Conclusion/Plan: On atorvastatin Resume once verified (5) Hypertension Conclusion/Plan: Currently hypotenive. Likely 2/2 to sedation with propofol Metoprolol and lisinopril held (6) Leukocytosis Conclusion/Plan: Likely reactive Will monitor - Lab Results Fish Bones: 07/24/18 19:46 07/24/18 19:46 - Diagnostic Imaging Results Diagnostic Imaging Results: positive: Final report reviewed - EKG Results EKG Interpreted Independently: Yes EKG Comparison: No prior EKG Core Measures - Anticipated LOS I expect patient to be DC'd or transferred within 96 hours.: Yes - DVT/VTE - Prophylaxis VTE/DVT Device ordered at admit?: Yes
[2018-07-24] MEDS: SODIUM CHLORIDE FLUSH 0.9% 10 ML SYRINGE IVP SCH (22:04)
[2018-07-24 23:42] LABS: ABG HCO3 20.5 mmol/L (22.0-26.0); ABG OXYGEN SATURATION 98 % (94-98); ABG PCO2 28 mmHg (34-45); ABG PH 7.49 (7.35-7.45); ABG PO2 136 mmHg (80-100); ABG TCO2 21.3 MMOL/L (21.0-29.0); ALLEN TEST POSITIVE
[2018-07-24 23:55] LABS: FOLATE 4.03 ng/mL (5.90 - >24.8)
[2018-07-25] MEDS: HYDROmorphone 0.5 MG/0.5 ML SYRINGE IVP PRN ×3 (01:06→06:26)
[2018-07-25] MEDS: SODIUM CHLORIDE FLUSH 0.9% 10 ML SYRINGE IVP SCH ×7 (01:06→23:56)
[2018-07-25] MEDS: SODIUM CHLORIDE 0.9% 1,000 ML IV SCH ×5 (01:18→19:16)
[2018-07-25] MEDS ORDERED: SODIUM CHLORIDE 0.9% 500 ML IV ONE ×5 (04:27→15:57)
[2018-07-25] MEDS: PROPOFOL 1000 MG/100 ML 100 ML IV SCH ×2 (05:10→19:17)
[2018-07-25 05:50] LABS: VBG PH 7.334 (7.31-7.41)
[2018-07-25 05:51] LABS: BASOPHILS # (AUTO) 0.1 10^3/uL (0.0-0.1); BASOPHILS % (AUTO) 0.9 %; EOSINOPHILS # (AUTO) 0.1 10^3/uL (0.0-0.7); EOSINOPHILS % (AUTO) 0.7 %; HGB - HEMOGLOBIN 9.3 g/dL (14.0-18.0); LYMPHOCYTES # (AUTO) 1.5 10^3/uL (1.5-3.5); LYMPHOCYTES % (AUTO) 15.3 %; MEAN CORPUSCULAR HEMOGLOBIN 35.3 pg (27.0-31.0); MEAN CORPUSCULAR HGB CONC 32.7 g/dL (32.0-36.0); MEAN CORPUSCULAR VOLUME 107.9 fL (80.0-94.0); MONOCYTES # (AUTO) 1.1 10^3/uL (0.0-1.0); MONOCYTES % (AUTO) 11.3 %; NEUTROPHILS # (AUTO) 6.9 10^3/uL (1.5-6.6); NEUTROPHILS % (AUTO) 71.8 %; PLT - PLATELET COUNT 238 10^3/uL (130-450); RED BLOOD COUNT 2.64 10^6/uL (4.70-6.10); RED CELL DISTRIBUTION WIDTH 17.3 % (12.0-15.0); WHITE BLOOD COUNT 9.6 x10^3/uL (4.8-10.8)
[2018-07-25 06:05] LABS: CALCIUM 8.3 mg/dL (8.5-10.3); CREATININE 0.7 mg/dL (0.6-1.2); MAGNESIUM 2.2 mg/dL (1.7-2.8); PHOSPHORUS 3.1 mg/dL (2.5-4.6)
[2018-07-25] MEDS: SODIUM CHLORIDE FLUSH 0.9% 10 ML SYRINGE IVP PRN ×3 (06:20→21:24)
[2018-07-25] MEDS ORDERED: PANTOPRAZOLE 40 MG VIAL IVP SCH (07:00)
[2018-07-25] MEDS ORDERED: POLYETHYLENE GLYCOL 3350 17 GM PACKET PO SCH (09:00)
[2018-07-25 09:38] LABS: ABG PCO2 35 mmHg (34-45); ABG PH 7.38 (7.35-7.45)
[2018-07-25 09:39] LABS: ABG BASE EXCESS -4.3 mmol/L (-2.0-3.0); ABG HCO3 20.3 mmol/L (22.0-26.0); ABG OXYGEN SATURATION 90 % (94-98); ABG PO2 62 mmHg (80-100); ABG TCO2 21.3 MMOL/L (21.0-29.0); ALLEN TEST POSITIVE
--- NOTE | 2018-07-25 09:55 | XRAY Report ---
Reason: Intubated in DTs Procedure Date: 07/25/2018 Accession Number: [id number] / [id number] Procedure: XR - Chest 1 View X-Ray CPT Code: 75760 FULL RESULT: EXAM: CHEST RADIOGRAPHY EXAM DATE: 07/25/2018 09:11 AM. CLINICAL HISTORY: Intubated in DTs. COMPARISON: CHEST 1 VIEW 07/24/2018 8:28 PM. TECHNIQUE: Semi-upright AP view. FINDINGS: Lungs/Pleura: The endotracheal tube is 6 cm above the jacinto, similar to before. Lung volumes are low with mild left hemidiaphragm elevation, as before. Accounting for bronchovascular crowding, lungs are clear. No gross pneumothorax or gross pleural fluid. Mediastinum: Within exam limitations, the cardiomediastinal contour is normal. Other: Orogastric tube as before coursing into the proximal gastric body. IMPRESSION: 1. Endotracheal and orogastric tubes positioned as expected, as before. 2. Lungs clear accounting for low lung volumes. RADIA
--- NOTE | 2018-07-25 12:46 | PROVIDER PROGRESS NOTE ---
Assessment/Plan - Problem List (1) Alcohol withdrawal Qualifiers: Complication of substance-induced condition: with delirium Qualified Code(s): F10.231 - Alcohol dependence with withdrawal delirium Assessment/Plan: He was hallucinating and confused at home, in the ER he was agitated. He was started on Propofol and intubated. Begin iv Ativan, Banana bag replacement. Discussed with SW, for their visit after he is extubated, in several days. (2) Endotracheally intubated Assessment/Plan: He was intubated in the ER, due to agitated alcohol withdrawal in the face of pain from an acute hip fracture. He had several ABGs and is saturating adequately and has a stable pH and CO2. Continue Propofol. Add iv Ativan for the withdrawal as well. Follow CXR daily. (3) Hypotension Qualifiers: Hypotension type: hypotension due to drug Qualified Code(s): I95.2 - Hypotension due to drugs Assessment/Plan: This is presumably from dehydration, but will evaluate for septic shock ny checking Lactic Acid level, and for cardiogenic shock by checking a troponin and obtaining an Echo. (4) Oliguria Assessment/Plan: Likley from hypotension and volume depletion. He has already received > 2500 cc iv crystalloids since admitted < 24 hours ago. Will increase iv rate further along with banana bag to be started. Will obtain an Echo as well. (5) Fracture, intertrochanteric, left femur Qualifiers: Encounter type: subsequent encounter Fracture type: closed Fracture alignment: displaced Assessment/Plan: He fell and was brought to ER for this reason. The L hip fracture is new, the R was recent. Will add Toradol scheduled for several days, while he is intubated, for pain management, since the narcotics are adding to hypotension. (6) Recent fracture of hip Assessment/Plan: The XRay shows that this R sided fracture was recent, as it is labeled "acute" by appearance. Plan pain management as above. (7) Anemia Assessment/Plan: Partly hemodilutional from the >2500 cc of fluid already admisnistered in less than 24 hours. Will obtain serum Iron panel, B12 and Folate levels, check stool guiac if needed. Replace if low. Follow CBC dailt, transfuse if Hgb <7 while critically ill. (8) Hyponatremia Assessment/Plan: Possibly hemodilutional. Continue NS hydration. Follow BMP daily. (9) Hyperbilirubinemia Assessment/Plan: Probably related to liver disease, but admission LFTs were normal. This a.m. only daily BMP was ordered and resulted. Will follow daily CMP (with LFTs). (10) Hx of coronary artery disease Assessment/Plan: He had a NSTEMI 1 year ago. His med list includes Lipitor, Lisinopril and Metoprolol, but it has not been filled at his [facility] since 07/16. LVEF and cor angio results, if any arre unknown. Will obtain an Echo, to evaluate LVEF, since he is needing iv fluids at 200 cc/hr or more, due to oliguria, so as not to precipitate pulmonary edema. (11) Non-compliance Assessment/Plan: As described above. - Current Meds Current Meds: Current Medications Generic Name Dose Route Start Last Admin Trade Name Freq PRN Reason Stop Dose Admin Hydromorphone HCl 1 mg 07/24/18 22:13 07/25/18 06:26 Dilaudid Inj Syringe IVP 1 mg Q2H PRN Administration PAIN Propofol 100 mls @ 5.035 mls/hr 07/24/18 21:00 07/25/18 08:00 Diprivan IV 15 mcg/kg/min .[id number] ANNIE 7.552 mls/hr Titration Protocol 10 MCG/KG/MIN Polyethylene Glycol 17 gm 07/25/18 09:00 07/25/18 09:15 Miralax PO 17 gm DAILY ANNIE Administration Sodium Chloride 10 ml 07/24/18 19:38 07/25/18 06:20 Normal Saline Flush 0.9% IVP 10 ml PRN PRN Administration NEEDED PER PROVIDER ORDERS Sodium Chloride 10 ml 07/25/18 01:00 07/25/18 09:14 Normal Saline Flush 0.9% IVP 10 ml 0100,0900,1700 ANNIE Administration Sodium Chloride 10 ml 07/25/18 01:00 07/25/18 09:16 Normal Saline Flush 0.9% IVP Not Given 0100,0900,1700 ANNIE Sodium Chloride 10 ml 07/24/18 20:31 07/25/18 06:26 Normal Saline Flush 0.9% IVP 10 ml PRN PRN Administration NEEDED PER PROVIDER ORDERS - Lab Result Fish Bone Diagrams: 07/25/18 05:06 07/25/18 05:06 - Additional Planning My Orders: My Active Orders 07/25/18 08:07 Arterial Blood Gases - RT [RC] .ONCE 07/25/18 11:32 Sodium Chloride 0.9% [Normal Saline 0.9%] 1,000 ml IV 200 mls/hr 07/25/18 12:00 Chlorhexidine [Peridex] 15 ml PO BID 07/25/18 13:00 Banana Bag (MVI,THIAMINE,FOLIC ACID IN D5.45NS W/20 MEQ KCL) Multivitamin [In fuvite] 10 ml Thiamine Inj [Vitamin B-1 Inj] 100 mg Folic Acid Inj 1 mg D5.45ns W/20 Meq KCl 1,000 ml IV DAILY Ketorolac Inj (30Mg) [Toradol Inj (30Mg)] 30 mg IVP Q6HR LORAZEPAM @ 0.01 MG/KG/HR LORazepam 100MG/100ML D5W [Ativan] 100 ml IV 0.01 mg/kg/hr 07/25/18 21:00 Famotidine [Pepcid] 20 mg IVP BID 07/26/18 05:00 CMP [COMPREHENSIVE METABOLIC PANEL] [CHEM] DAILYLAB 07/26/18 09:00 Chest 1 View X-Ray [XR] DAILY 07/27/18 05:00 CMP [COMPREHENSIVE METABOLIC PANEL] [CHEM] DAILYLAB 07/27/18 09:00 Chest 1 View X-Ray [XR] DAILY 07/28/18 05:00 CMP [COMPREHENSIVE METABOLIC PANEL] [CHEM] DAILYLAB 07/29/18 05:00 CMP [COMPREHENSIVE METABOLIC PANEL] [CHEM] DAILYLAB 07/30/18 05:00 CMP [COMPREHENSIVE METABOLIC PANEL] [CHEM] DAILYLAB Objective Vital Signs: Vital Signs - 24 hr 07/24/18 07/24/18 07/24/18 17:48 19:13 19:30 Temperature 36.8 C Heart Rate 84 93 101 H Heart Rate [ Monitoring electrodes] Respiratory 18 19 26 H Rate Blood Pressure 158/78 H 129/87 H 130/92 H Blood Pressure [Right Brachial artery] O2 Saturation 99 97 97 07/24/18 07/24/18 07/24/18 20:25 20:29 20:46 Temperature Heart Rate 92 95 Heart Rate [ Monitoring electrodes] Respiratory 14 Rate Blood Pressure 164/132 H 99/67 Blood Pressure [Right Brachial artery] O2 Saturation 100 07/24/18 07/24/18 07/24/18 21:00 21:01 21:06 Temperature Heart Rate 92 91 Heart Rate [ Monitoring electrodes] Respiratory 16 16 Rate Blood Pressure 83/61 L 85/60 L 88/67 L Blood Pressure [Right Brachial artery] O2 Saturation 100 100 07/24/18 07/24/18 07/24/18 21:12 21:15 21:17 Temperature Heart Rate 89 88 Heart Rate [ Monitoring electrodes] Respiratory 16 Rate Blood Pressure 95/72 112/67 Blood Pressure [Right Brachial artery] O2 Saturation 100 07/24/18 07/24/18 07/24/18 21:30 21:52 22:00 Temperature 36.7 C Heart Rate Heart Rate [ 88 90 91 Monitoring electrodes] Respiratory 16 16 16 Rate Blood Pressure Blood Pressure 106/68 75/56 L 100/67 [Right Brachial artery] O2 Saturation 100 98 100 07/24/18 07/24/18 07/24/18 22:30 23:00 23:30 Temperature 36.3 C L Heart Rate 85 Heart Rate [ 90 86 83 Monitoring electrodes] Respiratory 16 16 Rate Blood Pressure Blood Pressure 89/63 L 100/73 97/70 [Right Brachial artery] O2 Saturation 100 100 07/25/18 07/25/18 07/25/18 00:00 01:00 01:35 Temperature Heart Rate 92 Heart Rate [ 82 80 Monitoring electrodes] Respiratory 16 17 Rate Blood Pressure Blood Pressure 110/79 125/81 H [Right Brachial artery] O2 Saturation 96 100 07/25/18 07/25/18 07/25/18 02:00 03:00 03:35 Temperature Heart Rate 86 Heart Rate [ 91 88 Monitoring electrodes] Respiratory 16 16 Rate Blood Pressure Blood Pressure 89/66 L 104/67 [Right Brachial artery] O2 Saturation 100 100 07/25/18 07/25/18 07/25/18 03:57 04:00 05:00 Temperature 36.4 C L Heart Rate Heart Rate [ 85 84 Monitoring electrodes] Respiratory 16 16 Rate Blood Pressure Blood Pressure 132/86 H 99/60 [Right Brachial artery] O2 Saturation 98 99 07/25/18 07/25/18 07/25/18 05:15 06:00 07:00 Temperature Heart Rate 87 Heart Rate [ 83 85 Monitoring electrodes] Respiratory 16 16 Rate Blood Pressure Blood Pressure 98/64 84/62 L [Right Brachial artery] O2 Saturation 99 98 07/25/18 07/25/18 07/25/18 08:00 08:20 09:00 Temperature 36.8 C Heart Rate 84 Heart Rate [ 86 85 Monitoring electrodes] Respiratory 14 14 Rate Blood Pressure Blood Pressure 86/56 L 95/61 [Right Brachial artery] O2 Saturation 98 96 07/25/18 07/25/18 07/25/18 10:00 11:00 12:00 Temperature 36.9 C Heart Rate Heart Rate [ 88 87 80 Monitoring electrodes] Respiratory 14 14 14 Rate Blood Pressure Blood Pressure 103/66 86/60 L 89/58 L [Right Brachial artery] O2 Saturation 100 100 100 Oxygen O2 Source Mechanical ventilator I&O (Last 24 Hrs): Intake and Output Totals x24h 07/23/18 07/24/18 07/25/18 23:59 23:59 23:59 Intake Total 2131.358 1979.092 Output Total 110 137 Balance 4891.917 7063.092 General: Other (Sedated but is biting ET tube intermittently.) HEENT: Mucous membr. moist/pink, Other (ET tube and og tube in place) Neck: Supple, No JVD Neuro: Other (Sedated) Cardiovascular: Regular rate, No murmurs Respiratory: No respiratory distress, Breath sounds nml Abdomen: Soft, Other (Decreased boweel sounds.) Extremities: No edema, Other (Multiple ecchymoses (images were taken).) - Results Results: Laboratory Results WBC 9.6 x10^3/uL (4.8-10.8) 07/25/18 05:06 RBC 2.64 10^6/uL (4.70-6.10) L 07/25/18 05:06 Hgb 9.3 g/dL (14.0-18.0) L 07/25/18 05:06 Hct 28.5 % (42.0-52.0) L 07/25/18 05:06 MCV 107.9 fL (80.0-94.0) H 07/25/18 05:06 MCH 35.3 pg (27.0-31.0) H 07/25/18 05:06 MCHC 32.7 g/dL (32.0-36.0) 07/25/18 05:06 RDW 17.3 % (12.0-15.0) H 07/25/18 05:06 Plt Count 238 10^3/uL (130-450) 07/25/18 05:06 MPV 7.0 fL (7.4-11.4) L 07/25/18 05:06 Neut # (Auto) 6.9 10^3/uL (1.5-6.6) H 07/25/18 05:06 Lymph # (Auto) 1.5 10^3/uL (1.5-3.5) 07/25/18 05:06 Bell # (Auto) 1.1 10^3/uL (0.0-1.0) H 07/25/18 05:06 Eos # (Auto) 0.1 10^3/uL (0.0-0.7) 07/25/18 05:06 Baso # (Auto) 0.1 10^3/uL (0.0-0.1) 07/25/18 05:06 Absolute Nucleated RBC 0.00 x10^3/uL 07/25/18 05:06 Nucleated RBC % 0.0 /100WBC 07/25/18 05:06 PT 13.3 secs (9.9-12.6) H 07/24/18 19:46 INR 1.2 (0.8-1.2) 07/24/18 19:46 Bld Gas Analysis Time 0907/25/18 09:30 Sample Site RIGHT RADIAL 07/25/18 09:30 ABG pH 7.38 (7.35-7.45) 07/25/18 09:30 ABG pCO2 35 mmHg (34-45) 07/25/18 09:30 ABG pO2 62 mmHg (80-100) L 07/25/18 09:30 ABG HCO3 20.3 mmol/L (22.0-26.0) L 07/25/18 09:30 ABG Total CO2 21.3 MMOL/L (21.0-29.0) 07/25/18 09:30 ABG O2 Saturation 90 % (94-98) L 07/25/18 09:30 ABG Oximetry Spot Check 100 % 07/25/18 09:30 ABG Base Excess -4.3 mmol/L (-2.0-3.0) L 07/25/18 09:30 Roney Test POSITIVE 07/25/18 09:30 VBG pH 7.334 (7.31-7.41) 07/25/18 05:06 Ionized Calcium 1.04 mmol/L (1.15-1.33) L 07/25/18 05:06 Respiration Rate 14 b/min 07/25/18 09:30 O2 Delivery Device VENTILATOR 07/25/18 09:30 Vent Mode SIMV 07/25/18 09:30 FiO2 21.00 07/25/18 09:30 Tidal Volume 600 mL 07/25/18 09:30 PEEP 5 cmH2O 07/25/18 09:30 Pressure Support Vent 10 cmH2O 07/25/18 09:30 Sodium 133 mmol/L (135-145) L 07/25/18 05:06 Potassium 3.7 mmol/L (3.5-5.0) 07/25/18 05:06 Chloride 99 mmol/L (101-111) L 07/25/18 05:06 Carbon Dioxide 22 mmol/L (21-32) 07/25/18 05:06 Anion Gap 12.0 (6-13) 07/25/18 05:06 BUN 14 mg/dL (6-20) 07/25/18 05:06 Creatinine 0.7 mg/dL (0.6-1.2) 07/25/18 05:06 Estimated GFR (MDRD) 112 (>89) 07/25/18 05:06 Glucose 95 mg/dL (70-100) 07/25/18 05:06 Lactic Acid 2.2 mmol/L (0.5-2.2) 07/25/18 09:17 Calcium 8.3 mg/dL (8.5-10.3) L 07/25/18 05:06 Phosphorus 3.1 mg/dL (2.5-4.6) 07/25/18 05:06 Magnesium 2.2 mg/dL (1.7-2.8) 07/25/18 05:06 Total Bilirubin 1.7 mg/dL (0.2-1.0) H 07/24/18 19:46 AST 34 IU/L (10-42) 07/24/18 19:46 ALT 21 IU/L (10-60) 07/24/18 19:46 Alkaline Phosphatase 100 IU/L (42-121) 07/24/18 19:46 Total Protein 6.4 g/dL (6.7-8.2) L 07/24/18 19:46 Albumin 3.6 g/dL (3.2-5.5) 07/24/18 19:46 Globulin 2.8 g/dL (2.1-4.2) 07/24/18 19:46 Albumin/Globulin Ratio 1.3 (1.0-2.2) 07/24/18 19:46 Lipase 25 U/L (22-51) 07/24/18 19:46 Vitamin B12 236 pg/mL (180-914) 07/24/18 19:46 Folate 4.03 ng/mL (5.90 - >24.8) L 07/24/18 19:46 Urine Color YELLOW 07/24/18 20:49 Urine Clarity CLEAR (CLEAR) 07/24/18 20:49 Urine pH 5.5 PH (5.0-7.5) 07/24/18 20:49 Ur Specific Ray 1.025 (1.002-1.030) 07/24/18 20:49 Urine Protein NEGATIVE mg/dL (NEGATIVE) 07/24/18 20:49 Urine Glucose (UA) NEGATIVE mg/dL (NEGATIVE) 07/24/18 20:49 Urine Ketones TRACE mg/dL (NEGATIVE) 07/24/18 20:49 Urine Occult Blood LARGE (NEGATIVE) H 07/24/18 20:49 Urine Nitrite POSITIVE (NEGATIVE) H 07/24/18 20:49 Urine Bilirubin NEGATIVE (NEGATIVE) 07/24/18 20:49 Urine Urobilinogen 1 (NORMAL) E.U./dL (NORMAL) 07/24/18 20:49 Ur Leukocyte Esterase NEGATIVE (NEGATIVE) 07/24/18 20:49 Urine RBC 11-25 /HPF (0-5) H 07/24/18 20:49 Urine WBC 0-3 /HPF (0-3) 07/24/18 20:49 Ur Squamous Epith Cells RARE Squamous (<= Few) 07/24/18 20:49 Urine Bacteria Few /HPF (None Seen) 07/24/18 20:49 Ur Microscopic Review INDICATED 07/24/18 20:49 Urine Culture Comments INDICATED 07/24/18 20:49 Nasal Screen MRSA (PCR) NEGATIVE (NEGATIVE) 07/24/18 21:30 Ethyl Alcohol < 5.0 mg/dL 07/24/18 19:46 Blood Type A POSITIVE 07/24/18 19:46 Blood Type Recheck A POSITIVE 07/25/18 05:06 Antibody Screen NEGATIVE 07/24/18 19:46
[2018-07-25] MEDS: KETOROLAC 30 MG/ML VIAL IVP SCH ×3 (14:23→23:56)
[2018-07-25] MEDS: LORazepam 100MG/100ML D5W 100 ML IV SCH (14:25)
[2018-07-25] MEDS: CHLORHEXIDINE GLUCONATE 15 ML UDC PO SCH ×2 (14:29→21:22)
[2018-07-25] MEDS: MULTIVITAMIN 10 ML, THIAMINE INJ 100 MG, FOLIC ACID INJ 1 MG in D5.45NS W/20 MEQ KCL 1,... IV SCH (14:29)
[2018-07-25] MEDS ORDERED: DOPamine 800 MG/500 ML 800 MG/500 ML BAG IV SCH (17:00)
--- NOTE | 2018-07-25 21:09 | ANESTHESIA PROCEDURE NOTE ---
Anesth Central Line Template - Central Line Central Line Preparation: Consent Obtained Central line location: Right IJ Central line type: Triple lumen Central line catheter tip site resides: Superior vena cava (SVC) Central line aftercare: Chlorhexidine disc placed, Secured, Placement confirmed, No pneumothorax, No complications, Pt tolerated well
[2018-07-25] MEDS: FAMOTIDINE 20 MG/2 ML VIAL IVP SCH (21:23)
--- NOTE | 2018-07-25 21:24 | XRAY Report ---
Reason: Line placement Procedure Date: 07/25/2018 Accession Number: [id number] / [id number] Procedure: XR - Chest for Line Placement CPT Code: FULL RESULT: EXAM: CHEST RADIOGRAPHY EXAM DATE: 07/25/2018 08:54 PM. CLINICAL HISTORY: Line placement. COMPARISON: CHEST 1 VIEW 07/25/2018 8:53 AM. TECHNIQUE: 1 view. FINDINGS IMPRESSION: 1. Right IJ central venous catheter is in position with the tip projecting over the lower portion of the SVC. 2. No definite evidence of a pneumothorax on this exposure. 3. Minimal streaky left basilar atelectasis. 4. Endotracheal tube tip projects 5.9 cm above jacinto. 5. Orogastric tube tip over the upper stomach. The sidehole projects above the gastroesophageal junction. Advancement recommended of at least 8 cm. RADIA
[2018-07-26] MEDS: SODIUM CHLORIDE 0.9% 1,000 ML IV SCH ×5 (01:13→20:16)
[2018-07-26] MEDS: SODIUM CHLORIDE FLUSH 0.9% 10 ML SYRINGE IVP SCH ×7 (01:13→23:47)
[2018-07-26] MEDS: HYDROmorphone 0.5 MG/0.5 ML SYRINGE IVP PRN (04:42)
[2018-07-26] MEDS: SODIUM CHLORIDE FLUSH 0.9% 10 ML SYRINGE IVP PRN ×2 (04:42→06:50)
[2018-07-26] MEDS: PROPOFOL 1000 MG/100 ML 100 ML IV SCH ×3 (04:59→22:49)
[2018-07-26 05:36] LABS: BASOPHILS % (AUTO) 0.4 %; EOSINOPHILS # (AUTO) 0.2 10^3/uL (0.0-0.7); EOSINOPHILS % (AUTO) 1.7 %; HGB - HEMOGLOBIN 8.4 g/dL (14.0-18.0); LYMPHOCYTES # (AUTO) 1.4 10^3/uL (1.5-3.5); MEAN CORPUSCULAR HEMOGLOBIN 35.4 pg (27.0-31.0); MEAN CORPUSCULAR VOLUME 107.3 fL (80.0-94.0); MEAN PLATELET VOLUME 6.9 fL (7.4-11.4); MONOCYTES # (AUTO) 1.1 10^3/uL (0.0-1.0); MONOCYTES % (AUTO) 10.6 %; NEUTROPHILS # (AUTO) 7.9 10^3/uL (1.5-6.6); NEUTROPHILS % (AUTO) 74.3 %; PLT - PLATELET COUNT 269 10^3/uL (130-450); RED BLOOD COUNT 2.37 10^6/uL (4.70-6.10); RED CELL DISTRIBUTION WIDTH 17.2 % (12.0-15.0); WHITE BLOOD COUNT 10.7 x10^3/uL (4.8-10.8)
[2018-07-26 05:37] LABS: VBG PH 7.368 (7.31-7.41)
[2018-07-26 05:48] LABS: ALBUMIN 2.6 g/dL (3.2-5.5); BILIRUBIN,TOTAL 1.2 mg/dL (0.2-1.0); CALCIUM 7.7 mg/dL (8.5-10.3); CREATININE 0.6 mg/dL (0.6-1.2); MAGNESIUM 1.9 mg/dL (1.7-2.8); PHOSPHORUS 2.9 mg/dL (2.5-4.6); TOTAL PROTEIN 5.2 g/dL (6.7-8.2)
[2018-07-26] MEDS: KETOROLAC 30 MG/ML VIAL IVP SCH ×4 (06:20→23:46)
[2018-07-26] MEDS: POTASSIUM CHLOR 20 MEQ/100 ML 20 MEQ/100 ML BAG IV SCH ×2 (06:50→07:50)
[2018-07-26 08:21] LABS: % IRON SATURATION 8 % (20-50); IRON 14 ug/dL (45-182); TOTAL IRON BINDING CAPACITY 181 ug/dL (250-450); TRANSFERRIN 129 mg/dL (180-329)
[2018-07-26] MEDS: FAMOTIDINE 20 MG/2 ML VIAL IVP SCH ×2 (08:24→21:24)
[2018-07-26] MEDS: CHLORHEXIDINE GLUCONATE 15 ML UDC PO SCH ×2 (08:24→21:24)
--- NOTE | 2018-07-26 09:20 | XRAY Report ---
Reason: Intubated in DTs Procedure Date: 07/26/2018 Accession Number: [id number] / [id number] Procedure: XR - Chest 1 View X-Ray CPT Code: 53051 FULL RESULT: EXAM: CHEST RADIOGRAPHY EXAM DATE: 07/26/2018 09:07 AM. CLINICAL HISTORY: Intubated in DTs. COMPARISON: CHEST FOR LINE PLACEMENT 07/25/2018 8:37 PM. TECHNIQUE: 1 view. FINDINGS: Lungs/Pleura: Possible small bleb at the right lung apex. Small amount of subsegmental atelectasis at the left lung base. No effusions. Mediastinum: Stable Other: Right IJ catheter with catheter tip in the superior vena cava. Endotracheal tube with the tip in the mid trachea. NG tube seen. 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 IMPRESSION: 1. Stable chest. 2. Small amount of subsegmental atelectasis at the left lung base RADIA
[2018-07-26] MEDS ORDERED: SODIUM CHLORIDE 0.9% 500 ML IV ONE (10:40)
--- NOTE | 2018-07-26 11:01 | PROVIDER PROGRESS NOTE ---
Assessment/Plan - Problem List (1) Alcohol withdrawal Qualifiers: Complication of substance-induced condition: with delirium Qualified Code(s): F10.231 - Alcohol dependence with withdrawal delirium Assessment/Plan: He remains on Ativan plus Propofol Day #2, for his withdrawal. Will start tapering those sedatives off tomorrow, to try to wean off the ventilator. (2) Endotracheally intubated Assessment/Plan: As in #1. (3) Hypotension Qualifiers: Hypotension type: hypotension due to drug Qualified Code(s): I95.2 - Hypotension due to drugs Assessment/Plan: He required Dopamine at 4 mcg/kg, started last evening, for continued hypotension, BP 70's. A central line was put in by Anestheisa. Lactic Acid was normal, as well as troponin, ruling ut septic shock and cardiogenic shock. An Echo is pending today. Will decrease the Dopamine to 2 mcg/kg, for renal perfusion, and to keep MAP >65 (currently MAP is 84). Continu iv fluids including Banana Bag and D5NS. (4) Oliguria Assessment/Plan: Improved since BP higher and Dopamine started. Continue to monitor. (5) Fracture, intertrochanteric, left femur Qualifiers: Encounter type: subsequent encounter Fracture type: closed Fracture alignment: displaced Assessment/Plan: Continue scheduled Toradol, and prn Dilaudid. He will still need Orthopedic surgery during this admission for acute fracture of the L hip. (6) Recent fracture of hip Assessment/Plan: Continue pain meds as above. 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 He is getting Folate replacement iv in the Banana Bag. Follow CBC daily. (8) Iron deficiency anemia Assessment/Plan: He has both Iron deficiency and Folate deficiency. Will start Iron replacement orally when extubated, give 1 dose of iv Iron today. Will start po Iron when he is extubated. Follow CBC daily. (9) Hypokalemia Assessment/Plan: From poor intake. Will replace K. Monitor BMP daily. (10) Hyperbilirubinemia Assessment/Plan: This is likely a phase reactant. Follow LFTs daily. (11) Hx of coronary artery disease Assessment/Plan: He was apparently not on cardiac meds at home. His Echo for LVEF is pending today. (12) Non-compliance Assessment/Plan: He was not filling his prescriptions for cardiac meds for a year per Pharmacy, I will confirm when I speak to his . (13) Hyponatremia Assessment/Plan: Resolved with NS hydration. - Current Meds Current Meds: Current Medications Generic Name Dose Route Start Last Admin Trade Name Freq PRN Reason Stop Dose Admin Chlorhexidine Gluconate 15 ml 07/25/18 12:00 07/26/18 08:24 Peridex PO 15 ml BID ANNIE Administration Famotidine 20 mg 07/25/18 21:00 07/26/18 08:24 Pepcid IVP 20 mg BID ANNIE Administration Heparin Sodium (Beef Lung) 30 - 50 unit 07/25/18 21:39 07/26/18 05:00 IVP 30 unit PRN PRN Administration Central Line Protocol (<24 hr) Hydromorphone HCl 0.5 mg 07/25/18 16:51 07/26/18 04:42 Dilaudid Inj Syringe IVP 0.5 mg Q3H PRN Administration PAIN Propofol 100 mls @ 5.035 mls/hr 07/24/18 21:00 07/26/18 07:00 Diprivan IV 15 mcg/kg/min .[id number] ANNIE 7.552 mls/hr Titration Protocol 10 MCG/KG/MIN Lorazepam 100 mls @ 0.83 mls/hr 07/25/18 13:00 07/26/18 07:00 Ativan IV 0 mg/kg/hr .Q72H ANNIE 0.8 mls/hr Infusion Protocol 0.01 MG/KG/HR Multivitamins 10 ml/ Thiamine 1,011.2 mls @ 100 mls/hr 07/25/18 14:00 07/26/18 02:00 HCl 100 mg/ Folic Acid 1 mg/ IV Infused Potassium Chloride/Dextrose/ Q24H ANNIE Infusion Sod Cl Dopamine HCl/Dextrose 800 mg in 500 mls @ 6.225 mls/hr 07/25/18 17:00 07/26/18 09:30 Dopamine IV 3 mcg/kg/min .Q72H ANNIE 9.338 mls/hr Titration Protocol 2 MCG/KG/MIN Sodium Chloride 1,000 mls @ 250 mls/hr 07/25/18 19:11 07/26/18 08:25 Normal Saline 0.9% IV 250 mls/hr .Q4H ANNIE Administration Ketorolac Tromethamine 30 mg 07/25/18 13:00 07/26/18 06:20 Toradol Inj (30mg) IVP 07/27/18 18:00 30 mg Q6HR ANNIE Administration Sodium Chloride 10 ml 07/24/18 19:38 07/26/18 06:50 Normal Saline Flush 0.9% IVP 10 ml PRN PRN Administration NEEDED PER PROVIDER ORDERS Sodium Chloride 10 ml 07/25/18 01:00 07/26/18 08:24 Normal Saline Flush 0.9% IVP 10 ml 0100,0900,1700 ANNIE Administration Sodium Chloride 10 ml 07/25/18 01:00 07/26/18 08:24 Normal Saline Flush 0.9% IVP 10 ml 0100,0900,1700 ANNIE Administration Sodium Chloride 10 ml 07/24/18 20:31 07/25/18 21:24 Normal Saline Flush 0.9% IVP 10 ml PRN PRN Administration NEEDED PER PROVIDER ORDERS - Lab Result Fish Bone Diagrams: 07/26/18 05:00 07/26/18 05:00 - Additional Planning My Orders: My Active Orders 07/25/18 12:00 Chlorhexidine [Peridex] 15 ml PO BID 07/25/18 13:00 Ketorolac Inj (30Mg) [Toradol Inj (30Mg)] 30 mg IVP Q6HR LORazepam 100MG/100ML D5W [Ativan] 100 ml IV 0.01 mg/kg/hr 07/25/18 14:00 Multivitamin [Infuvite] 10 ml Thiamine Inj [Vitamin B-1 Inj] 100 mg Folic Acid Inj 1 mg D5.45ns W/20 Meq KCl 1,000 ml IV Q24H 07/25/18 16:51 Miscellaenous Nursing Order [RC] QSHIFT HYDROmorphone INJ SYRINGE [Dilaudid Inj Syringe] 0.5 mg IVP Q3H PRN 07/25/18 17:00 DOPamine 800 MG/500 ML [DOPamine] 800 mg in 500 ml IV 2 mcg/kg/min 07/25/18 21:00 Famotidine [Pepcid] 20 mg IVP BID 07/26/18 08:00 Echo Transthoracic Complete [ECHO] Routine 07/26/18 08:31 Airway Suctioning [Suction] [RC] PRN 07/27/18 05:00 CMP [COMPREHENSIVE METABOLIC PANEL] [CHEM] DAILYLAB 07/27/18 09:00 Chest 1 View X-Ray [XR] DAILY 07/28/18 05:00 CMP [COMPREHENSIVE METABOLIC PANEL] [CHEM] DAILYLAB 07/29/18 05:00 CMP [COMPREHENSIVE METABOLIC PANEL] [CHEM] DAILYLAB 07/30/18 05:00 CMP [COMPREHENSIVE METABOLIC PANEL] [CHEM] DAILYLAB Subjective - Subjective Patient Reports: Other (Sedated, on the vent.) Objective Vital Signs: Vital Signs - 24 hr 07/25/18 07/25/18 07/25/18 11:00 12:00 13:00 Temperature 36.9 C Heart Rate Heart Rate [ 87 80 82 Monitoring electrodes] Respiratory 14 14 14 Rate Blood Pressure Blood Pressure 86/60 L 89/58 L 98/68 [Right Brachial artery] O2 Saturation 100 100 100 07/25/18 07/25/18 07/25/18 13:50 14:00 15:00 Temperature Heart Rate 83 Heart Rate [ 83 82 Monitoring electrodes] Respiratory 14 14 Rate Blood Pressure Blood Pressure 100/63 83/47 L [Right Brachial artery] O2 Saturation 100 100 07/25/18 07/25/18 07/25/18 16:00 16:30 17:00 Temperature 36.9 C Heart Rate 79 Heart Rate [ 76 67 67 Monitoring electrodes] Respiratory 14 14 14 Rate Blood Pressure Blood Pressure 98/59 L 99/58 L 95/67 [Right Brachial artery] O2 Saturation 100 100 100 07/25/18 07/25/18 07/25/18 18:00 18:10 19:00 Temperature 36.4 C L Heart Rate 64 Heart Rate [ 69 65 Monitoring electrodes] Respiratory 14 14 Rate Blood Pressure Blood Pressure 94/56 L 82/53 L [Right Brachial artery] O2 Saturation 100 100 07/25/18 07/25/18 07/25/18 19:25 19:30 19:35 Temperature Heart Rate Heart Rate [ 64 65 66 Monitoring electrodes] Respiratory Rate Blood Pressure Blood Pressure 71/49 L 69/41 L 77/44 L [Right Brachial artery] O2 Saturation 07/25/18 07/25/18 07/25/18 19:37 19:40 19:45 Temperature Heart Rate 69 Heart Rate [ 66 73 Monitoring electrodes] Respiratory Rate Blood Pressure Blood Pressure 80/47 L 66/47 L [Right Brachial artery] O2 Saturation 07/25/18 07/25/18 07/25/18 19:50 19:55 20:00 Temperature Heart Rate Heart Rate [ 75 70 74 Monitoring electrodes] Respiratory 14 Rate Blood Pressure Blood Pressure 83/49 L 96/70 84/52 L [Right Brachial artery] O2 Saturation 100 07/25/18 07/25/18 07/25/18 20:05 20:10 20:15 Temperature Heart Rate Heart Rate [ 76 83 82 Monitoring electrodes] Respiratory Rate Blood Pressure Blood Pressure 83/50 L 98/58 L 102/59 L [Right Brachial artery] O2 Saturation 07/25/18 07/25/18 07/25/18 20:20 20:25 20:30 Temperature Heart Rate Heart Rate [ 83 81 81 Monitoring electrodes] Respiratory Rate Blood Pressure Blood Pressure 95/57 L 94/60 104/61 [Right Brachial artery] O2 Saturation 07/25/18 07/25/18 07/25/18 20:35 20:40 20:45 Temperature Heart Rate Heart Rate [ 83 81 81 Monitoring electrodes] Respiratory Rate Blood Pressure Blood Pressure 95/56 L 98/60 97/55 L [Right Brachial artery] O2 Saturation 07/25/18 07/25/18 07/25/18 20:50 20:55 21:00 Temperature Heart Rate Heart Rate [ 80 80 80 Monitoring electrodes] Respiratory Rate Blood Pressure Blood Pressure 95/59 L 97/56 L 76/49 L [Right Brachial artery] O2 Saturation 100 07/25/18 07/25/18 07/25/18 21:05 21:10 21:15 Temperature Heart Rate Heart Rate [ 79 75 78 Monitoring electrodes] Respiratory Rate Blood Pressure Blood Pressure 77/41 L 86/56 L 85/55 L [Right Brachial artery] O2 Saturation 07/25/18 07/25/18 07/25/18 21:20 21:25 21:31 Temperature Heart Rate 73 80 Heart Rate [ 76 79 Monitoring electrodes] Respiratory 14 Rate Blood Pressure 114/64 Blood Pressure 97/59 L 111/61 [Right Brachial artery] O2 Saturation 07/25/18 07/25/18 07/25/18 21:36 21:41 21:46 Temperature Heart Rate 81 81 81 Heart Rate [ Monitoring electrodes] Respiratory 14 14 14 Rate Blood Pressure 112/61 104/61 102/55 L Blood Pressure [Right Brachial artery] O2 Saturation 07/25/18 07/25/18 07/25/18 21:51 21:56 22:00 Temperature Heart Rate 84 85 Heart Rate [ 86 Monitoring electrodes] Respiratory 14 14 14 Rate Blood Pressure 100/62 99/60 Blood Pressure 96/59 L [Right Brachial artery] O2 Saturation 100 07/25/18 07/25/18 07/25/18 22:01 22:06 22:16 Temperature Heart Rate 87 88 88 Heart Rate [ Monitoring electrodes] Respiratory 16 14 15 Rate Blood Pressure 96/59 L 90/61 94/61 Blood Pressure [Right Brachial artery] O2 Saturation 07/25/18 07/25/18 07/25/18 22:31 22:46 22:59 Temperature Heart Rate 85 82 82 Heart Rate [ Monitoring electrodes] Respiratory 18 20 14 Rate Blood Pressure 97/63 94/55 L 84/52 L Blood Pressure [Right Brachial artery] O2 Saturation 07/25/18 07/25/18 07/25/18 23:00 23:05 23:10 Temperature Heart Rate 81 81 80 Heart Rate [ 81 Monitoring electrodes] Respiratory 14 14 14 Rate Blood Pressure 90/51 L 90/54 L 95/52 L Blood Pressure 90/51 L [Right Brachial artery] O2 Saturation 100 07/25/18 07/25/18 07/25/18 23:15 23:20 23:25 Temperature Heart Rate 78 76 82 Heart Rate [ Monitoring electrodes] Respiratory 14 14 14 Rate Blood Pressure 93/56 L 100/58 L 103/57 L Blood Pressure [Right Brachial artery] O2 Saturation 07/25/18 07/25/18 07/25/18 23:30 23:45 23:50 Temperature Heart Rate 77 81 77 Heart Rate [ Monitoring electrodes] Respiratory 14 15 15 Rate Blood Pressure 104/59 L 100/52 L Blood Pressure [Right Brachial artery] O2 Saturation 07/25/18 07/25/18 07/26/18 23:55 23:59 00:00 Temperature Heart Rate 75 89 74 Heart Rate [ Monitoring electrodes] Respiratory 14 14 14 Rate Blood Pressure 106/56 L Blood Pressure [Right Brachial artery] O2 Saturation 07/26/18 07/26/18 07/26/18 00:01 00:05 00:10 Temperature Heart Rate 76 74 75 Heart Rate [ Monitoring electrodes] Respiratory 14 14 14 Rate Blood Pressure Blood Pressure [Right Brachial artery] O2 Saturation 07/26/18 07/26/18 07/26/18 00:14 00:15 00:16 Temperature Heart Rate 74 74 76 Heart Rate [ Monitoring electrodes] Respiratory 14 14 14 Rate Blood Pressure 94/55 L Blood Pressure [Right Brachial artery] O2 Saturation 07/26/18 07/26/18 07/26/18 00:20 00:25 00:29 Temperature Heart Rate 74 76 73 Heart Rate [ Monitoring electrodes] Respiratory 14 14 14 Rate Blood Pressure Blood Pressure [Right Brachial artery] O2 Saturation 07/26/18 07/26/18 07/26/18 00:30 00:45 01:00 Temperature Heart Rate 71 74 73 Heart Rate [ Monitoring electrodes] Respiratory 14 14 14 Rate Blood Pressure 100/58 L 101/60 103/64 Blood Pressure [Right Brachial artery] O2 Saturation 100 07/26/18 07/26/18 07/26/18 01:14 01:15 01:16 Temperature Heart Rate 78 72 73 Heart Rate [ Monitoring electrodes] Respiratory 14 14 14 Rate Blood Pressure 110/61 Blood Pressure [Right Brachial artery] O2 Saturation 07/26/18 07/26/18 07/26/18 01:29 01:30 01:40 Temperature Heart Rate 72 73 71 Heart Rate [ Monitoring electrodes] Respiratory 13 14 Rate Blood Pressure 108/57 L Blood Pressure [Right Brachial artery] O2 Saturation 07/26/18 07/26/18 07/26/18 01:45 02:00 02:30 Temperature Heart Rate 74 69 70 Heart Rate [ Monitoring electrodes] Respiratory 14 14 14 Rate Blood Pressure 111/60 106/62 102/63 Blood Pressure [Right Brachial artery] O2 Saturation 100 07/26/18 07/26/18 07/26/18 03:00 03:30 03:40 Temperature Heart Rate 65 67 66 Heart Rate [ Monitoring electrodes] Respiratory 14 14 Rate Blood Pressure 112/65 111/61 Blood Pressure [Right Brachial artery] O2 Saturation 100 07/26/18 07/26/18 07/26/18 04:00 04:32 05:00 Temperature Heart Rate 65 72 66 Heart Rate [ Monitoring electrodes] Respiratory 14 16 14 Rate Blood Pressure 111/65 89/48 L 103/62 Blood Pressure [Right Brachial artery] O2 Saturation 100 100 07/26/18 07/26/18 07/26/18 05:09 05:30 05:40 Temperature 36.4 C L Heart Rate 63 64 Heart Rate [ Monitoring electrodes] Respiratory 14 Rate Blood Pressure 110/62 Blood Pressure [Right Brachial artery] O2 Saturation 07/26/18 07/26/18 07/26/18 06:00 07:00 08:00 Temperature 36.4 C L Heart Rate Heart Rate [ 64 66 63 Monitoring electrodes] Respiratory 14 14 14 Rate Blood Pressure Blood Pressure 118/65 106/60 109/64 [Right Brachial artery] O2 Saturation 100 100 100 07/26/18 07/26/18 07/26/18 08:17 09:00 09:30 Temperature Heart Rate 60 Heart Rate [ 64 68 Monitoring electrodes] Respiratory 14 14 Rate Blood Pressure Blood Pressure 132/63 H 105/58 L [Right Brachial artery] O2 Saturation 100 100 07/26/18 07/26/18 07/26/18 09:45 10:00 10:15 Temperature Heart Rate Heart Rate [ 70 68 68 Monitoring electrodes] Respiratory 14 14 14 Rate Blood Pressure Blood Pressure 96/58 L 99/58 L 98/60 [Right Brachial artery] O2 Saturation 100 100 100 07/26/18 10:25 Temperature Heart Rate 69 Heart Rate [ Monitoring electrodes] Respiratory Rate Blood Pressure Blood Pressure [Right Brachial artery] O2 Saturation Oxygen O2 Source Mechanical ventilator I&O (Last 24 Hrs): Intake and Output Totals x24h 07/24/18 07/25/18 07/26/18 23:59 23:59 23:59 Intake Total 9504.071 6005.136 2251.714 Output Total 110 431 377 Balance 5205.617 1036.136 1874.714 General: Other (Sedated) HEENT: Other (og tube, ET tube) Neck: Supple Neuro: Other (Sedated) Cardiovascular: Regular rate, No murmurs Respiratory: No respiratory distress, Breath sounds nml Abdomen: Soft, Other (decreased bowel sounds) Extremities: No edema, Other (Multiple eccymoses) - Results Results: Laboratory Results WBC 10.7 x10^3/uL (4.8-10.8) 07/26/18 05:00 RBC 2.37 10^6/uL (4.70-6.10) L 07/26/18 05:00 Hgb 8.4 g/dL (14.0-18.0) L 07/26/18 05:00 Hct 25.5 % (42.0-52.0) L 07/26/18 05:00 MCV 107.3 fL (80.0-94.0) H 07/26/18 05:00 MCH 35.4 pg (27.0-31.0) H 07/26/18 05:00 MCHC 33.0 g/dL (32.0-36.0) 07/26/18 05:00 RDW 17.2 % (12.0-15.0) H 07/26/18 05:00 Plt Count 269 10^3/uL (130-450) 07/26/18 05:00 MPV 6.9 fL (7.4-11.4) L 07/26/18 05:00 Neut # (Auto) 7.9 10^3/uL (1.5-6.6) H 07/26/18 05:00 Lymph # (Auto) 1.4 10^3/uL (1.5-3.5) L 07/26/18 05:00 [place] # (Auto) 1.1 10^3/uL (0.0-1.0) H 07/26/18 05:00 Eos # (Auto) 0.2 10^3/uL (0.0-0.7) 07/26/18 05:00 Baso # (Auto) 0.0 10^3/uL (0.0-0.1) 07/26/18 05:00 Absolute Nucleated RBC 0.00 x10^3/uL 07/26/18 05:00 Nucleated RBC % 0.0 /100WBC 07/26/18 05:00 PT 13.3 secs (9.9-12.6) H 07/24/18 19:46 INR 1.2 (0.8-1.2) 07/24/18 19:46 Bld Gas Analysis Time 0930 07/25/18 09:30 Sample Site RIGHT RADIAL 07/25/18 09:30 ABG pH 7.38 (7.35-7.45) 07/25/18 09:30 ABG pCO2 35 mmHg (34-45) 07/25/18 09:30 ABG pO2 62 mmHg (80-100) L 07/25/18 09:30 ABG HCO3 20.3 mmol/L (22.0-26.0) L 07/25/18 09:30 ABG Total CO2 21.3 MMOL/L (21.0-29.0) 07/25/18 09:30 ABG O2 Saturation 90 % (94-98) L 07/25/18 09:30 ABG Oximetry Spot Check 100 % 07/25/18 09:30 ABG Base Excess -4.3 mmol/L (-2.0-3.0) L 07/25/18 09:30 Roney Test POSITIVE 07/25/18 09:30 VBG pH 7.368 (7.31-7.41) 07/26/18 05:00 Ionized Calcium 1.08 mmol/L (1.15-1.33) L 07/26/18 05:00 Respiration Rate 14 b/min 07/25/18 09:30 O2 Delivery Device VENTILATOR 07/25/18 09:30 Vent Mode SIMV 07/25/18 09:30 FiO2 21.00 07/25/18 09:30 Tidal Volume 600 mL 07/25/18 09:30 PEEP 5 cmH2O 07/25/18 09:30 Pressure Support Vent 10 cmH2O 07/25/18 09:30 Sodium 135 mmol/L (135-145) 07/26/18 05:00 Potassium 3.3 mmol/L (3.5-5.0) L 07/26/18 05:00 Chloride 107 mmol/L (101-111) 07/26/18 05:00 Carbon Dioxide 21 mmol/L (21-32) 07/26/18 05:00 Anion Gap 7.0 (6-13) 07/26/18 05:00 BUN 16 mg/dL (6-20) 07/26/18 05:00 Creatinine 0.6 mg/dL (0.6-1.2) 07/26/18 05:00 Estimated GFR (MDRD) 134 (>89) 07/26/18 05:00 Glucose 104 mg/dL (70-100) H 07/26/18 05:00 Lactic Acid 1.7 mmol/L (0.5-2.2) 07/25/18 17:00 Calcium 7.7 mg/dL (8.5-10.3) L 07/26/18 05:00 Phosphorus 2.9 mg/dL (2.5-4.6) 07/26/18 05:00 Magnesium 1.9 mg/dL (1.7-2.8) 07/26/18 05:00 Iron 14 ug/dL (45-182) L 07/26/18 05:00 TIBC 181 ug/dL (250-450) L 07/26/18 05:00 % Saturation 8 % (20-50) L 07/26/18 05:00 Transferrin 129 mg/dL (180-329) L 07/26/18 05:00 Total Bilirubin 1.2 mg/dL (0.2-1.0) H 07/26/18 05:00 AST 20 IU/L (10-42) 07/26/18 05:00 ALT 14 IU/L (10-60) 07/26/18 05:00 Alkaline Phosphatase 79 IU/L (42-121) 07/26/18 05:00 Troponin I < 0.04 ng/mL (<0.49) 07/25/18 17:00 B-Natriuretic Peptide 50 pg/mL (5-100) 07/25/18 17:00 Total Protein 5.2 g/dL (6.7-8.2) L 07/26/18 05:00 Albumin 2.6 g/dL (3.2-5.5) L 07/26/18 05:00 Globulin 2.6 g/dL (2.1-4.2) 07/26/18 05:00 Albumin/Globulin Ratio 1.0 (1.0-2.2) 07/26/18 05:00 Lipase 25 U/L (22-51) 07/24/18 19:46 Vitamin B12 236 pg/mL (180-914) 07/24/18 19:46 Folate 4.03 ng/mL (5.90 - >24.8) L 07/24/18 19:46 Urine Color YELLOW 07/24/18 20:49 Urine Clarity CLEAR (CLEAR) 07/24/18 20:49 Urine pH 5.5 PH (5.0-7.5) 07/24/18 20:49 Ur Specific [place] 1.025 (1.002-1.030) 07/24/18 20:49 Urine Protein NEGATIVE mg/dL (NEGATIVE) 07/24/18 20:49 Urine Glucose (UA) NEGATIVE mg/dL (NEGATIVE) 07/24/18 20:49 Urine Ketones TRACE mg/dL (NEGATIVE) 07/24/18 20:49 Urine Occult Blood LARGE (NEGATIVE) H 07/24/18 20:49 Urine Nitrite POSITIVE (NEGATIVE) H 07/24/18 20:49 Urine Bilirubin NEGATIVE (NEGATIVE) 07/24/18 20:49 Urine Urobilinogen 1 (NORMAL) E.U./dL (NORMAL) 07/24/18 20:49 Ur Leukocyte Esterase NEGATIVE (NEGATIVE) 07/24/18 20:49 Urine RBC 11-25 /HPF (0-5) H 07/24/18 20:49 Urine WBC 0-3 /HPF (0-3) 07/24/18 20:49 Ur Squamous Epith Cells RARE Squamous (<= Few) 07/24/18 20:49 Urine Bacteria Few /HPF (None Seen) 07/24/18 20:49 Ur Microscopic Review INDICATED 07/24/18 20:49 Urine Culture Comments INDICATED 07/24/18 20:49 Nasal Screen MRSA (PCR) NEGATIVE (NEGATIVE) 07/24/18 21:30 Ethyl Alcohol < 5.0 mg/dL 07/24/18 19:46 Blood Type A POSITIVE 07/24/18 19:46 Blood Type Recheck A POSITIVE 07/25/18 05:06 Antibody Screen NEGATIVE 07/24/18 19:46
[2018-07-26] MEDS ORDERED: IRON SUCROSE 200 MG in SODIUM CHLORIDE 0.9% 100ML 100 ML IV ONE (11:11)
[2018-07-26] MEDS ORDERED: FERRIC GLUCONATE 125 MG in SODIUM CHLORIDE 0.9% 100ML 100 ML IV ONE (12:00)
--- NOTE | 2018-07-26 12:12 | CONSULTATION NOTE ---
DATE OF SERVICE: 07/25/2018 Physician: Sunitha Jasso MD REQUESTING PHYSICIAN: Mile Manning MD REASON FOR CONSULTATION: Bilateral hip fracture. HISTORY OF PRESENT ILLNESS: This is a 67-year-old male who I have previously seen in clinic in 2018 with a toe fracture. The patient has chronic alcoholism, and about on 07/08/2018 or 07/11/19, he suffered a fall at home in the bathtub, injuring his right hip, for which he ultimately presen maral to the emergency room for evaluation on 07/20/2018, and was found to have a nondisplaced greater trochanter fracture. Consultation was undertaken between the ER doctor and Dr. Trace Alexander, and the pl an was for weightbearing ambulation with a walker, with oral pain medication if needed, and return to the orthopedic clinic, which the patient had not yet accomplished. On 07/24/2018, the patient had a recurrent fall and presented to the emergency room with a left hip intertrochanteric fracture. Marlenii ng the course of his admission, he began to have alcohol withdrawal and agitation, and required admis alex to the intensive care unit with intubation. PAST MEDICAL HISTORY: The patient's prior medical history is obtained from the medical record, as th e patient is, even as of today, 07/26/2018, intubated. There is no family member or loved one in att endance as I saw the patient on 07/25/2018 and 07/26/2018. PHYSICAL EXAMINATION: Orthopedically, the patient has normal alignment of his right lower extremity, but has a very large bruise around the right greater trochanter area, approximately 4-5 inches in di ameter. The patient does not have tense thigh compartments, and his distal foot exam is warm and pul ses normal, whereas the left lower extremity has shortening, external rotation, and classic findings of an intertrochanteric fracture with slight soft tissue swelling about the hip, but no extensive com partment swelling down the thigh. That extremity also has a warm foot and pulses that are normal. T he patient does not have other identified upper extremity or spine injury, and he is noted to be intu bated and minimally responsive, even when his left lower extremity is moved, but definitely there is a sense that he become slightly agitated with the left lower extremity and not the right. DIAGNOSTIC DATA: The patient's x-rays show a right greater trochanter fracture with minimal displace ment in their anatomic position. The patient's left hip reveals an intertrochanteric fracture that e xtends even into the subtrochanteric area with some comminution. IMPRESSION: This is a 67-year-old male, presently in the throes of alcohol withdrawal. He is requir ing ongoing intubation, has recently been on dopamine, and will require further evaluation. It is un likely that he will be ready for surgery, even in the next 48 hours. He will be expected to be in [facility] beyond 96 hours, as his left hip ultimately would demand operative treatment with, in my opinion and in my hands, most successful with an intramedullary implant. PLAN: Now orthopedically is for the patient to be comfortable, for complications to be avoided with proper nursing care, so that he does not have either decubiti or DVT, and look for a window of opport unity when the patient is stabilized to have his hip operated on, and this may require his ultimate t [place]fer off the [place], not because of orthopedic reasons, but because of his unusual and prolonged m edical withdrawal problem. TD: 07/26/2018 09:12
[2018-07-26] MEDS: MULTIVITAMIN 10 ML, THIAMINE INJ 100 MG, FOLIC ACID INJ 1 MG in D5.45NS W/20 MEQ KCL 1,... IV SCH (13:29)
[2018-07-26] MEDS: LORazepam 100MG/100ML D5W 100 ML IV SCH (16:03)
[2018-07-27] MEDS: SODIUM CHLORIDE 0.9% 1,000 ML IV SCH ×4 (04:46→15:28)
[2018-07-27 04:58] LABS: BASOPHILS # (AUTO) 0.1 10^3/uL (0.0-0.1); BASOPHILS % (AUTO) 0.8 %; EOSINOPHILS # (AUTO) 0.2 10^3/uL (0.0-0.7); EOSINOPHILS % (AUTO) 2.6 %; HGB - HEMOGLOBIN 7.8 g/dL (14.0-18.0); LYMPHOCYTES # (AUTO) 1.2 10^3/uL (1.5-3.5); MEAN CORPUSCULAR HEMOGLOBIN 36.9 pg (27.0-31.0); MEAN CORPUSCULAR HGB CONC 34.7 g/dL (32.0-36.0); MEAN CORPUSCULAR VOLUME 106.3 fL (80.0-94.0); MEAN PLATELET VOLUME 6.9 fL (7.4-11.4); MONOCYTES # (AUTO) 0.8 10^3/uL (0.0-1.0); MONOCYTES % (AUTO) 9.2 %; NEUTROPHILS % (AUTO) 72.4 %; PLT - PLATELET COUNT 256 10^3/uL (130-450); RED BLOOD COUNT 2.13 10^6/uL (4.70-6.10); RED CELL DISTRIBUTION WIDTH 17.6 % (12.0-15.0); WHITE BLOOD COUNT 8.3 x10^3/uL (4.8-10.8)
[2018-07-27 05:00] LABS: VBG PH 7.405 (7.31-7.41)
[2018-07-27 05:13] LABS: ALBUMIN 2.2 g/dL (3.2-5.5); ALBUMIN/GLOBULIN RATIO 0.9 (1.0-2.2); BILIRUBIN,TOTAL 1.4 mg/dL (0.2-1.0); CALCIUM 7.6 mg/dL (8.5-10.3); CREATININE 0.4 mg/dL (0.6-1.2); MAGNESIUM 1.8 mg/dL (1.7-2.8); PHOSPHORUS 2.7 mg/dL (2.5-4.6); TOTAL PROTEIN 4.6 g/dL (6.7-8.2)
[2018-07-27] MEDS: PROPOFOL 1000 MG/100 ML 100 ML IV SCH ×3 (06:04→21:05)
[2018-07-27] MEDS: KETOROLAC 30 MG/ML VIAL IVP SCH ×3 (06:04→17:32)
[2018-07-27] MEDS ORDERED: CALCIUM GLUCONATE 1,000 MG in SODIUM CHLORIDE 0.9% 50 ML IV ONE (07:30)
[2018-07-27] MEDS: CHLORHEXIDINE GLUCONATE 15 ML UDC PO SCH ×2 (08:50→21:12)
[2018-07-27] MEDS: FAMOTIDINE 20 MG/2 ML VIAL IVP SCH ×2 (08:50→21:05)
[2018-07-27] MEDS: SODIUM CHLORIDE FLUSH 0.9% 10 ML SYRINGE IVP SCH ×5 (08:51→21:05)
[2018-07-27] MEDS: POTASSIUM CHLOR 20 MEQ/100 ML 20 MEQ/100 ML BAG IV SCH ×2 (09:05→10:05)
[2018-07-27] MEDS: POLYETHYLENE GLYCOL 3350 17 GM PACKET PO SCH (09:27)
--- NOTE | 2018-07-27 09:35 | XRAY Report ---
Reason: Intubated in DTs Procedure Date: 07/27/2018 Accession Number: [id number] / [id number] Procedure: XR - Chest 1 View X-Ray CPT Code: 94375 FULL RESULT: EXAM: CHEST RADIOGRAPHY EXAM DATE: 07/27/2018 05:07 AM. CLINICAL HISTORY: Intubated in DTs. COMPARISON: 07/26/2018. TECHNIQUE: 1 view. FINDINGS: Lungs/Pleura: Left pleural effusion and basilar airspace disease small amount of right basilar hypoventilatory change. Cannot exclude small right pleural effusion. Clear upper lungs. Mediastinum: Within exam limitations, the cardiomediastinal contour is normal. Other: Stable right internal jugular venous catheter, endotracheal tube, nasogastric tube allowing for positioning differences. IMPRESSION: New left-sided pleural effusion and basilar airspace disease appearing since the preceding day. Stable support lines and tubes. RADIA
--- NOTE | 2018-07-27 10:27 | PROVIDER PROGRESS NOTE ---
Assessment/Plan - Problem List (1) VAP (ventilator-associated pneumonia) Assessment/Plan: The daily CXR shows a new LLL pneumonia, and the RN reports more sputum. He will not be weaned to extubate, therefore. Start iv Pip/Tazo and iv Vanco for a ventilator associated PNA. (2) Alcohol withdrawal Qualifiers: Complication of substance-induced condition: with delirium Qualified Code(s): F10.231 - Alcohol dependence with withdrawal delirium Assessment/Plan: The described that he is a "closet alcoholic", she noticed back and forth changes in his mood and behavior for years and suspected that he was hiding alcohol intake. She planned to confront him at a couple's getaway, but he did not agree to go. Today we tried weaning the Propofol down, to start trying ventilator weaning, keeping low dose Ativan drip on, and he became restless and appeared to be withdrawing yest. The taper was stopped. I informed the that alcohol withdrawal can take 2-7 days. Continue present care in ICU. (3) Endotracheally intubated Assessment/Plan: He does have oral/upper airway secretions, these may have caused aspiration/ventilator-associated pneumonia. Scoplamine patch ordered. IV antibiotics to start. He cannot be weaned off the vent today. Continue Cheryl care. (4) Hypotension Qualifiers: Hypotension type: hypotension due to drug Qualified Code(s): I95.2 - Hypotension due to drugs Assessment/Plan: Pt remains on Dopamine, iv fluids at 250 cc/hr total. Some of his intravascular depletion is probably blood loss into the multiple ecchymoses of his body, the largest being the R hip, thescrotum and penis and the lL hip to inner L thigh. Continue iv fluids. He will very likely need blood transfused as it is dropping. This was discussed with the at bedside today. (5) Oliguria Assessment/Plan: Improved since on Dopamine, but occasionally still drops to <25cc/hr. Continue Bailey care, I's and O's and ICU care., (6) Fracture, intertrochanteric, left femur Qualifiers: Encounter type: subsequent encounter Fracture type: closed Fracture alignment: displaced Assessment/Plan: Plan as per Orthopedics. Consult appreciated. (7) Recent fracture of hip Assessment/Plan: Plan as per Orthopedics. 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 Will follow CBC q12h. Transfuse if Hgb <7. (9) Iron deficiency anemia Assessment/Plan: As above. (10) Hypokalemia Assessment/Plan: Replace K. Follow BMP daily. (11) Hyperbilirubinemia Assessment/Plan: Follow CMP daily. (12) Hx of coronary artery disease Assessment/Plan: The confirmed to me today that he had an OR 1 year ago to the day. She is unaware however, if he was compliant with cardiac meds or not. (13) Non-compliance Assessment/Plan: As above. At admission, our pharmacist confirmed that he had not filled his cardiac prescriptions for 11 months. (14) Hyponatremia Assessment/Plan: Resolved with NS hydration. - Current Meds Current Meds: Current Medications Generic Name Dose Route Start Last Admin Trade Name Freq PRN Reason Stop Dose Admin Chlorhexidine Gluconate 15 ml 07/25/18 12:00 07/27/18 08:50 Peridex PO 15 ml BID ANNIE Administration Famotidine 20 mg 07/25/18 21:00 07/27/18 08:50 Pepcid IVP 20 mg BID ANNIE Administration Heparin Sodium (Beef Lung) 30 - 50 unit 07/25/18 21:39 07/26/18 05:00 IVP 30 unit PRN PRN Administration Central Line Protocol (<24 hr) Hydromorphone HCl 0.5 mg 07/25/18 16:51 07/26/18 04:42 Dilaudid Inj Syringe IVP 0.5 mg Q3H PRN Administration PAIN Propofol 100 mls @ 5.035 mls/hr 07/24/18 21:00 07/27/18 06:04 Diprivan IV 25 mcg/kg/min .[id number] ANNIE 12.587 mls/hr Administration Protocol 10 MCG/KG/MIN Lorazepam 100 mls @ 0.83 mls/hr 07/25/18 13:00 07/26/18 16:03 Ativan IV 0 mg/kg/hr .Q72H ANNIE 0.8 mls/hr Administration Protocol 0.01 MG/KG/HR Multivitamins 10 ml/ Thiamine 1,011.2 mls @ 100 mls/hr 07/25/18 14:00 07/26/18 23:09 HCl 100 mg/ Folic Acid 1 mg/ IV Infused Potassium Chloride/Dextrose/ Q24H ANNIE Infusion Sod Cl Dopamine HCl/Dextrose 800 mg in 500 mls @ 6.225 mls/hr 07/25/18 17:00 07/26/18 22:05 Dopamine IV 2 mcg/kg/min .Q72H ANNIE 6.225 mls/hr Titration Protocol 2 MCG/KG/MIN Sodium Chloride 1,000 mls @ 250 mls/hr 07/25/18 19:11 07/27/18 09:14 Normal Saline 0.9% IV 250 mls/hr .Q4H ANNIE Administration Ketorolac Tromethamine 30 mg 07/25/18 13:00 07/27/18 06:04 Toradol Inj (30mg) IVP 07/27/18 18:00 30 mg Q6HR ANNIE Administration Polyethylene Glycol 17 gm 07/27/18 09:00 07/27/18 09:27 Miralax PO 17 gm DAILY ANNIE Administration Sodium Chloride 10 ml 07/24/18 19:38 07/26/18 06:50 Normal Saline Flush 0.9% IVP 10 ml PRN PRN Administration NEEDED PER PROVIDER ORDERS Sodium Chloride 10 ml 07/25/18 01:00 07/27/18 08:51 Normal Saline Flush 0.9% IVP 10 ml 0100,0900,1700 ANNIE Administration Sodium Chloride 10 ml 07/25/18 01:00 07/27/18 09:15 Normal Saline Flush 0.9% IVP 10 ml 0100,0900,1700 ANNIE Administration Sodium Chloride 10 ml 07/24/18 20:31 07/25/18 21:24 Normal Saline Flush 0.9% IVP 10 ml PRN PRN Administration NEEDED PER PROVIDER ORDERS - Lab Result Fish Bone Diagrams: 07/27/18 04:35 07/27/18 04:35 - Additional Planning My Orders: My Active Orders 07/27/18 08:53 Miscellaenous Nursing Order [RC] ONCE 07/27/18 09:00 Polyethylene Glycol 3350 [Miralax] 17 gm PO DAILY 07/27/18 10:19 Miscellaenous Nursing Order [RC] ONCE 07/27/18 10:30 Piperacillin/Tazobactam [Zosyn] 4.5 gm Sodium Chloride 0.9% Minibag [Normal Saline 0.9% Minibag] 100 ml IV Q6H 07/27/18 11:00 Vancomycin Per Pharmacy [Vancomycin-Pharmacy To Dose] 100 gm Sodium Chloride 0.9% [Normal Saline 0.9%] 250 ml IV Q400H 07/28/18 05:00 CALCIUM, IONIZED ([facility]) [BG] DAILYLAB CMP [COMPREHENSIVE METABOLIC PANEL] [CHEM] DAILYLAB MAGNESIUM [CHEM] DAILYLAB PHOSPHORUS [CHEM] DAILYLAB 07/29/18 05:00 CMP [COMPREHENSIVE METABOLIC PANEL] [CHEM] DAILYLAB 07/30/18 05:00 CMP [COMPREHENSIVE METABOLIC PANEL] [CHEM] DAILYLAB Subjective - Subjective Nursing Reports: Other (More sputum during suctioning) Objective Vital Signs: Vital Signs - 24 hr 07/26/18 07/26/18 07/26/18 10:25 10:30 11:00 Temperature Heart Rate 69 Heart Rate [ 68 67 Monitoring electrodes] Respiratory 14 14 Rate Blood Pressure 100/70 113/65 [Right Brachial artery] O2 Saturation 100 100 07/26/18 07/26/18 07/26/18 12:00 12:25 13:00 Temperature 36.6 C Heart Rate 68 Heart Rate [ 66 71 Monitoring electrodes] Respiratory 14 14 Rate Blood Pressure 132/79 H 119/69 [Right Brachial artery] O2 Saturation 100 100 07/26/18 07/26/18 07/26/18 13:45 14:00 14:15 Temperature Heart Rate Heart Rate [ 68 71 73 Monitoring electrodes] Respiratory 14 14 14 Rate Blood Pressure 101/58 L 116/62 116/62 [Right Brachial artery] O2 Saturation 100 100 100 07/26/18 07/26/18 07/26/18 14:17 14:30 14:38 Temperature 36.6 C Heart Rate 75 75 Heart Rate [ 73 Monitoring electrodes] Respiratory 14 14 Rate Blood Pressure 95/57 L [Right Brachial artery] O2 Saturation 100 100 07/26/18 07/26/18 07/26/18 15:00 16:00 16:31 Temperature 36.7 C Heart Rate 64 Heart Rate [ 69 63 Monitoring electrodes] Respiratory 14 14 Rate Blood Pressure 108/59 L 119/61 [Right Brachial artery] O2 Saturation 100 100 07/26/18 07/26/18 07/26/18 17:00 18:00 18:20 Temperature Heart Rate 71 Heart Rate [ 62 63 Monitoring electrodes] Respiratory 14 14 Rate Blood Pressure 107/69 103/66 [Right Brachial artery] O2 Saturation 100 100 07/26/18 07/26/18 07/26/18 19:00 19:14 20:00 Temperature 36.2 C L Heart Rate 77 Heart Rate [ 73 76 Monitoring electrodes] Respiratory 14 17 Rate Blood Pressure 97/61 84/57 L [Right Brachial artery] O2 Saturation 100 100 07/26/18 07/26/18 07/26/18 20:22 21:00 21:30 Temperature Heart Rate 64 Heart Rate [ 74 67 Monitoring electrodes] Respiratory 16 14 Rate Blood Pressure 91/57 L 115/66 [Right Brachial artery] O2 Saturation 96 97 07/26/18 07/26/18 07/26/18 22:00 23:00 23:30 Temperature Heart Rate 64 Heart Rate [ 69 75 Monitoring electrodes] Respiratory 14 14 Rate Blood Pressure 119/63 105/62 [Right Brachial artery] O2 Saturation 98 100 07/27/18 07/27/18 07/27/18 00:00 01:00 01:30 Temperature 36.3 C L Heart Rate 66 Heart Rate [ 65 69 Monitoring electrodes] Respiratory 14 14 Rate Blood Pressure 109/61 111/68 [Right Brachial artery] O2 Saturation 100 100 07/27/18 07/27/18 07/27/18 02:00 03:00 03:35 Temperature Heart Rate 60 Heart Rate [ 60 62 Monitoring electrodes] Respiratory 14 14 Rate Blood Pressure 111/62 123/71 [Right Brachial artery] O2 Saturation 100 100 07/27/18 07/27/18 07/27/18 04:00 05:00 05:34 Temperature 36.0 C L Heart Rate 71 Heart Rate [ 62 75 Monitoring electrodes] Respiratory 18 14 Rate Blood Pressure 125/76 94/61 [Right Brachial artery] O2 Saturation 100 100 07/27/18 07/27/18 07/27/18 06:00 07:00 07:43 Temperature Heart Rate 76 Heart Rate [ 67 76 Monitoring electrodes] Respiratory 14 16 Rate Blood Pressure 115/68 123/68 [Right Brachial artery] O2 Saturation 100 100 07/27/18 07/27/18 07/27/18 08:00 09:00 09:42 Temperature 36.5 C Heart Rate 72 Heart Rate [ 71 76 Monitoring electrodes] Respiratory 14 16 Rate Blood Pressure 106/71 109/91 H [Right Brachial artery] O2 Saturation 100 98 07/27/18 09:51 Temperature Heart Rate Heart Rate [ 76 Monitoring electrodes] Respiratory 16 Rate Blood Pressure 93/59 L [Right Brachial artery] O2 Saturation 100 Oxygen O2 Source vent I&O (Last 24 Hrs): Intake and Output Totals x24h 07/25/18 07/26/18 07/27/18 23:59 23:59 23:59 Intake Total 5523.136 7001.255 1846.923 Output Total 431 1047 688 Balance 5092.136 5954.255 1158.923 General: Other (Sedated, on vent) HEENT: Mucous membr. moist/pink Neck: Supple Neuro: Other (Sedated) Cardiovascular: Regular rate, No murmurs Respiratory: No respiratory distress, Breath sounds nml Abdomen: Soft Genitourinary: Other (Enlarged scrotum, blue-ecchymotic and entire penis shaft ecchymotic and swollen. Bailey catheter in place.) Extremities: No edema, Other (Extensive soft ecchymosis of R lateral thigh. Extensive soft ecchymosis of L inner thigh. Multiple small eccymoses diffusely.) - Results Results: Laboratory Results WBC 8.3 x10^3/uL (4.8-10.8) 07/27/18 04:35 RBC 2.13 10^6/uL (4.70-6.10) L 07/27/18 04:35 Hgb 7.8 g/dL (14.0-18.0) L 07/27/18 04:35 Hct 22.6 % (42.0-52.0) L 07/27/18 04:35 MCV 106.3 fL (80.0-94.0) H 07/27/18 04:35 MCH 36.9 pg (27.0-31.0) H 07/27/18 04:35 MCHC 34.7 g/dL (32.0-36.0) 07/27/18 04:35 RDW 17.6 % (12.0-15.0) H 07/27/18 04:35 Plt Count 256 10^3/uL (130-450) 07/27/18 04:35 MPV 6.9 fL (7.4-11.4) L 07/27/18 04:35 Neut # (Auto) 6.0 10^3/uL (1.5-6.6) 07/27/18 04:35 Lymph # (Auto) 1.2 10^3/uL (1.5-3.5) L 07/27/18 04:35 [place] # (Auto) 0.8 10^3/uL (0.0-1.0) 07/27/18 04:35 Eos # (Auto) 0.2 10^3/uL (0.0-0.7) 07/27/18 04:35 Baso # (Auto) 0.1 10^3/uL (0.0-0.1) 07/27/18 04:35 Absolute Nucleated RBC 0.00 x10^3/uL 07/27/18 04:35 Nucleated RBC % 0.0 /100WBC 07/27/18 04:35 PT 13.3 secs (9.9-12.6) H 07/24/18 19:46 INR 1.2 (0.8-1.2) 07/24/18 19:46 Bld Gas Analysis Time 0930 07/25/18 09:30 Sample Site RIGHT RADIAL 07/25/18 09:30 ABG pH 7.38 (7.35-7.45) 07/25/18 09:30 ABG pCO2 35 mmHg (34-45) 07/25/18 09:30 ABG pO2 62 mmHg (80-100) L 07/25/18 09:30 ABG HCO3 20.3 mmol/L (22.0-26.0) L 07/25/18 09:30 ABG Total CO2 21.3 MMOL/L (21.0-29.0) 07/25/18 09:30 ABG O2 Saturation 90 % (94-98) L 07/25/18 09:30 ABG Oximetry Spot Check 100 % 07/25/18 09:30 ABG Base Excess -4.3 mmol/L (-2.0-3.0) L 07/25/18 09:30 Roney Test POSITIVE 07/25/18 09:30 VBG pH 7.405 (7.31-7.41) 07/27/18 04:35 Ionized Calcium 1.08 mmol/L (1.15-1.33) L 07/27/18 04:35 Respiration Rate 14 b/min 07/25/18 09:30 O2 Delivery Device VENTILATOR 07/25/18 09:30 Vent Mode SIMV 07/25/18 09:30 FiO2 21.00 07/25/18 09:30 Tidal Volume 600 mL 07/25/18 09:30 PEEP 5 cmH2O 07/25/18 09:30 Pressure Support Vent 10 cmH2O 07/25/18 09:30 Sodium 136 mmol/L (135-145) 07/27/18 04:35 Potassium 3.1 mmol/L (3.5-5.0) L 07/27/18 04:35 Chloride 111 mmol/L (101-111) 07/27/18 04:35 Carbon Dioxide 18 mmol/L (21-32) L 07/27/18 04:35 Anion Gap 7.0 (6-13) 07/27/18 04:35 BUN 11 mg/dL (6-20) 07/27/18 04:35 Creatinine 0.4 mg/dL (0.6-1.2) L 07/27/18 04:35 Estimated GFR (MDRD) 214 (>89) 07/27/18 04:35 Glucose 95 mg/dL (70-100) 07/27/18 04:35 Lactic Acid 1.7 mmol/L (0.5-2.2) 07/25/18 17:00 Calcium 7.6 mg/dL (8.5-10.3) L 07/27/18 04:35 Phosphorus 2.7 mg/dL (2.5-4.6) 07/27/18 04:35 Magnesium 1.8 mg/dL (1.7-2.8) 07/27/18 04:35 Iron 14 ug/dL (45-182) L 07/26/18 05:00 TIBC 181 ug/dL (250-450) L 07/26/18 05:00 % Saturation 8 % (20-50) L 07/26/18 05:00 Transferrin 129 mg/dL (180-329) L 07/26/18 05:00 Total Bilirubin 1.4 mg/dL (0.2-1.0) H 07/27/18 04:35 AST 22 IU/L (10-42) 07/27/18 04:35 ALT 14 IU/L (10-60) 07/27/18 04:35 Alkaline Phosphatase 69 IU/L (42-121) 07/27/18 04:35 Troponin I < 0.04 ng/mL (<0.49) 07/25/18 17:00 B-Natriuretic Peptide 50 pg/mL (5-100) 07/25/18 17:00 Total Protein 4.6 g/dL (6.7-8.2) L 07/27/18 04:35 Albumin 2.2 g/dL (3.2-5.5) L 07/27/18 04:35 Globulin 2.4 g/dL (2.1-4.2) 07/27/18 04:35 Albumin/Globulin Ratio 0.9 (1.0-2.2) L 07/27/18 04:35 Lipase 25 U/L (22-51) 07/24/18 19:46 Vitamin B12 236 pg/mL (180-914) 07/24/18 19:46 Folate 4.03 ng/mL (5.90 - >24.8) L 07/24/18 19:46 Urine Color YELLOW 07/24/18 20:49 Urine Clarity CLEAR (CLEAR) 07/24/18 20:49 Urine pH 5.5 PH (5.0-7.5) 07/24/18 20:49 Ur Specific [place] 1.025 (1.002-1.030) 07/24/18 20:49 Urine Protein NEGATIVE mg/dL (NEGATIVE) 07/24/18 20:49 Urine Glucose (UA) NEGATIVE mg/dL (NEGATIVE) 07/24/18 20:49 Urine Ketones TRACE mg/dL (NEGATIVE) 07/24/18 20:49 Urine Occult Blood LARGE (NEGATIVE) H 07/24/18 20:49 Urine Nitrite POSITIVE (NEGATIVE) H 07/24/18 20:49 Urine Bilirubin NEGATIVE (NEGATIVE) 07/24/18 20:49 Urine Urobilinogen 1 (NORMAL) E.U./dL (NORMAL) 07/24/18 20:49 Ur Leukocyte Esterase NEGATIVE (NEGATIVE) 07/24/18 20:49 Urine RBC 11-25 /HPF (0-5) H 07/24/18 20:49 Urine WBC 0-3 /HPF (0-3) 07/24/18 20:49 Ur Squamous Epith Cells RARE Squamous (<= Few) 07/24/18 20:49 Urine Bacteria Few /HPF (None Seen) 07/24/18 20:49 Ur Microscopic Review INDICATED 07/24/18 20:49 Urine Culture Comments INDICATED 07/24/18 20:49 Nasal Screen MRSA (PCR) NEGATIVE (NEGATIVE) 07/24/18 21:30 Ethyl Alcohol < 5.0 mg/dL 07/24/18 19:46 Blood Type A POSITIVE 07/24/18 19:46 Blood Type Recheck A POSITIVE 07/25/18 05:06 Antibody Screen NEGATIVE 07/24/18 19:46
[2018-07-27] MEDS ORDERED: PIPERACILLIN/TAZOBACTAM 4.5 GM in SODIUM CHLORIDE 0.9% MINIBAG 100 ML IV SCH (11:00)
[2018-07-27] MEDS ORDERED: VANCOMYCIN PER PHARMACY 100 GM in SODIUM CHLORIDE 0.9% 250 ML IV SCH (11:00)
--- NOTE | 2018-07-27 11:42 | PROVIDER PROGRESS NOTE ---
Subjective - Prog Note Date Prog Note Date: 07/27/18 Prog Note Time: 11:39 - Subjective Pt reports feeling: No change (Ortho: This patient's general condition appears to be worsening. His Left hip fracture will require operative treatment (at some future point in time when he has stabilized) His right hip greater trochanter fracture will be managed non-surgically. The patient's anemia is typical of hip fracture, as is the bruising on his bilateral hips and groin area. I Question whether this patient might benefit from transfer to a higher level of care because of anticipated duration of need of intensive care, higher risk profile, possible need of intensive care in the future perioperative time frame.) Objective - Vital Signs/Intake & Output Vital Signs: Vital Signs x48h Temp Pulse Pulse Resp BP Pulse Ox 07/27/18 11:00 72 14 124/84 H 98 07/27/18 09:51 76 16 93/59 L 100 07/27/18 09:42 72 07/27/18 09:00 36.5 C 76 16 109/91 H 98 07/27/18 08:00 71 14 106/71 100 07/27/18 07:43 76 07/27/18 07:00 76 16 123/68 100 07/27/18 06:00 67 14 115/68 100 07/27/18 05:34 71 07/27/18 05:00 75 14 94/61 100 07/27/18 04:00 36.0 C L 62 18 125/76 100 Intake & Output: Intake & Output 07/24/18 07/25/18 07/26/18 07/27/18 23:59 23:59 23:59 23:59 Intake Total 1920.263 3558.136 7001.255 2326.090 Output Total 442 315 2590 733 Balance 4461.886 8072.136 5954.255 1593.090 - Lab Results Fish Bones: 07/27/18 04:35 07/27/18 04:35 Other Labs: Lab Results x24hrs 07/27/18 07/27/18 07/27/18 Range/Units 04:35 04:35 04:35 WBC 8.3 (4.8-10.8) x10^3/uL RBC 2.13 L (4.70-6.10) 10^6/uL Hgb 7.8 L (14.0-18.0) g/dL Hct 22.6 L (42.0-52.0) % MCV 106.3 H (80.0-94.0) fL MCH 36.9 H (27.0-31.0) pg MCHC 34.7 (32.0-36.0) g/dL RDW 17.6 H (12.0-15.0) % Plt Count 256 (130-450) 10^3/uL MPV 6.9 L (7.4-11.4) fL Neut # (Auto) 6.0 (1.5-6.6) 10^3/uL Lymph # (Auto) 1.2 L (1.5-3.5) 10^3/uL [place] # (Auto) 0.8 (0.0-1.0) 10^3/uL Eos # (Auto) 0.2 (0.0-0.7) 10^3/uL Baso # (Auto) 0.1 (0.0-0.1) 10^3/uL Absolute Nucleated RBC 0.00 x10^3/uL Nucleated RBC % 0.0 /100WBC VBG pH 7.405 (7.31-7.41) Ionized Calcium 1.08 L (1.15-1.33) mmol/L Sodium 136 (135-145) mmol/L Potassium 3.1 L (3.5-5.0) mmol/L Chloride 111 (101-111) mmol/L Carbon Dioxide 18 L (21-32) mmol/L Anion Gap 7.0 (6-13) BUN 11 (6-20) mg/dL Creatinine 0.4 L (0.6-1.2) mg/dL Estimated GFR (MDRD) 214 (>89) Glucose 95 (70-100) mg/dL Calcium 7.6 L (8.5-10.3) mg/dL Phosphorus 2.7 (2.5-4.6) mg/dL Magnesium 1.8 (1.7-2.8) mg/dL Total Bilirubin 1.4 H (0.2-1.0) mg/dL AST 22 (10-42) IU/L ALT 14 (10-60) IU/L Alkaline Phosphatase 69 (42-121) IU/L Total Protein 4.6 L (6.7-8.2) g/dL Albumin 2.2 L (3.2-5.5) g/dL Globulin 2.4 (2.1-4.2) g/dL Albumin/Globulin Ratio 0.9 L (1.0-2.2)
[2018-07-27] MEDS: VANCOMYCIN INJ 1 GM, VANCOMYCIN INJ 500 MG in SODIUM CHLORIDE 0.9% 500 ML IV SCH ×2 (12:41→23:57)
[2018-07-27] MEDS: SODIUM CHLORIDE FLUSH 0.9% 10 ML SYRINGE IVP PRN (12:41)
[2018-07-27] MEDS ORDERED: SCOPOLAMINE PATCH TOP SCH (13:00)
--- NOTE | 2018-07-27 13:32 | ADVANCE CARE PLANNING NOTE ---
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 He has not worked for about 4 years. The describes that he remotely was an alcoholic, but dried out completely when the state evaluated him for being fit to adopt a granddaughter who was 2 years old at the time. They did adopt successfully. The child is now 11 years old. Several years ago, the noticed that the patient's mood was different, she asked him what the problem was and he would give her a gruff answer and then walk away. He would then improve for several months and then come back to this behavior. She suspected he was again abusing alcohol. The planned a "couples getaway" to confront him but also to create a plan for alcohol rehab. The patient did not agree to go on this getaway, the says she went herself. Therefore, the patient has continued to have bouts of intoxication, he drinks wine and hard liquor, she thinks but does not know the amounts. The also is not sure if he is compliant with his cardiac medications, she does confirm that he did have an CO exactly 1 year ago this week. - Objective/Medical story Objective/Medical Story: Patient fell doing chores at home approximately 1 week ago and sustained a hip fracture. He was seen by outpatient orthopedics with plan for immobilization. The describes that he did not follow the doctor's orders, was out cutting the lawn with a lawnmower. Somewhere he fell again, on the opposite hip, again sustained a hip fracture on the opposite side, for which she is brought in on this admission. In the ER he was in extreme pain but also, since not having had a drink for 48 hours, he was in full-blown alcohol withdrawal. He required intubation and IV sedation started in the ER, and he has been in the ICU since then. The "feels sorry for him but is also very angry with him". - Goals of Care Goals of care determinations: Full aggressive medical mangement is planned. If transfer to a higher level of care facility is needed, since the bilateral hip fractures may be very high risk to have a procedure done here, she would like him transferred to [facility]. - Plan Plan: As above in Goals of care - Code Status Code Status: Attempt Resuscitation - Time Spent on Advance Care Planning Time spent on advance care plannin
[2018-07-27] MEDS: MULTIVITAMIN 10 ML, THIAMINE INJ 100 MG, FOLIC ACID INJ 1 MG in D5.45NS W/20 MEQ KCL 1,... IV SCH (14:40)
[2018-07-27] MEDS: PIPERACILLIN/TAZOBACTAM 4.5 GM in SODIUM CHLORIDE 0.9% MINIBAG 100 ML IV SCH ×2 (15:02→21:17)
[2018-07-27] MEDS ORDERED: LORAZEPAM IV SCH (15:30)
[2018-07-28] MEDS: SODIUM CHLORIDE 0.9% 1,000 ML IV SCH ×5 (00:01→14:38)
[2018-07-28] MEDS: SODIUM CHLORIDE FLUSH 0.9% 10 ML SYRINGE IVP SCH ×6 (00:02→18:03)
[2018-07-28] MEDS: PROPOFOL 1000 MG/100 ML 100 ML IV SCH ×5 (03:57→23:16)
[2018-07-28 04:18] LABS: VBG PH 7.341 (7.31-7.41)
[2018-07-28] MEDS: SODIUM CHLORIDE FLUSH 0.9% 10 ML SYRINGE IVP PRN ×7 (04:21→23:11)
[2018-07-28 04:32] LABS: ALBUMIN 2.1 g/dL (3.2-5.5); ALBUMIN/GLOBULIN RATIO 0.8 (1.0-2.2); BILIRUBIN,TOTAL 1.4 mg/dL (0.2-1.0); CALCIUM 7.6 mg/dL (8.5-10.3); CREATININE 0.5 mg/dL (0.6-1.2); MAGNESIUM 1.6 mg/dL (1.7-2.8); PHOSPHORUS 3.1 mg/dL (2.5-4.6); TOTAL PROTEIN 4.7 g/dL (6.7-8.2)
[2018-07-28] MEDS ORDERED: MAGNESIUM SULFATE 2 GRAM 2 GM/50 ML BAG IV ONE (04:43)
[2018-07-28] MEDS: POTASSIUM CHLOR 20 MEQ/100 ML 20 MEQ/100 ML BAG IV SCH ×2 (05:32→06:24)
[2018-07-28] MEDS: PIPERACILLIN/TAZOBACTAM 4.5 GM in SODIUM CHLORIDE 0.9% MINIBAG 100 ML IV SCH ×2 (05:32→14:36)
[2018-07-28] MEDS ORDERED: PROPOFOL 1000 MG/100 ML 100 ML IV SCH (07:00)
[2018-07-28] MEDS ORDERED: GLYCOPYRROLATE 1 MG/5 ML VIAL IVP PRN (08:50)
[2018-07-28] MEDS: FAMOTIDINE 20 MG/2 ML VIAL IVP SCH ×2 (08:54→20:16)
[2018-07-28] MEDS: CHLORHEXIDINE GLUCONATE 15 ML UDC PO SCH ×2 (08:54→20:16)
[2018-07-28] MEDS ORDERED: SODIUM CHLORIDE 0.9% MINIBAG 0 ML IV ONE (09:02)
[2018-07-28 09:18] LABS: ABG BASE EXCESS -8.9 mmol/L (-2.0-3.0); ABG HCO3 14.5 mmol/L (22.0-26.0); ABG OXYGEN SATURATION 98 % (94-98); ABG PH 7.41 (7.35-7.45); ABG PO2 122 mmHg (80-100); ABG TCO2 15.2 MMOL/L (21.0-29.0); ALLEN TEST POSITIVE
[2018-07-28 09:21] LABS: ABG PCO2 23 mmHg (34-45)
[2018-07-28] MEDS: POLYETHYLENE GLYCOL 3350 17 GM PACKET PO SCH (09:29)
[2018-07-28] MEDS: SODIUM CHLORIDE 0.9% 500 ML IV PRN ×2 (09:30→13:23)
[2018-07-28 10:16] LABS: BASOPHILS # (AUTO) 0.1 10^3/uL (0.0-0.1); BASOPHILS % (AUTO) 0.9 %; EOSINOPHILS # (AUTO) 0.3 10^3/uL (0.0-0.7); HGB - HEMOGLOBIN 7.7 g/dL (14.0-18.0); LYMPHOCYTES # (AUTO) 0.9 10^3/uL (1.5-3.5); LYMPHOCYTES % (AUTO) 13.1 %; MEAN CORPUSCULAR HEMOGLOBIN 35.4 pg (27.0-31.0); MEAN CORPUSCULAR HGB CONC 33.5 g/dL (32.0-36.0); MEAN CORPUSCULAR VOLUME 105.7 fL (80.0-94.0); MEAN PLATELET VOLUME 6.6 fL (7.4-11.4); MONOCYTES # (AUTO) 0.6 10^3/uL (0.0-1.0); MONOCYTES % (AUTO) 9.3 %; NEUTROPHILS % (AUTO) 72.7 %; PLT - PLATELET COUNT 264 10^3/uL (130-450); RED BLOOD COUNT 2.17 10^6/uL (4.70-6.10); RED CELL DISTRIBUTION WIDTH 17.6 % (12.0-15.0); WHITE BLOOD COUNT 6.9 x10^3/uL (4.8-10.8)
[2018-07-28] MEDS: VANCOMYCIN INJ 1 GM, VANCOMYCIN INJ 500 MG in SODIUM CHLORIDE 0.9% 500 ML IV SCH (11:43)
[2018-07-28] MEDS ORDERED: MIN OIL/DIMETHICON/COCONUT OIL 92 GM TUBE TOP PRN (13:19)
[2018-07-28] MEDS ORDERED: FUROSEMIDE 20 MG/2 ML VIAL IVP PRN (14:15)
--- NOTE | 2018-07-28 14:22 | MISCELLANEOUS PROVIDER NOTE ---
Miscellaneous Provider Note - - Note: HPI: Patient is a 67 y/o male who presented to the ED with his at bedside after falling at home. The history is mainly provided by the patient's because the patient is currently very confused and unable to provide. She reports that the patient has been falling frequently. He has a loop recorder. He saw cardiology a couple days ago and was cleared. Today he fell in their sun room. He had been disoriented prior to that. His found him with one shoe off, his belt undone and he was talking as though in conversation with someone, but there was no one else in the room. She points out that earlier today he was mowing the lawn but adds that he really shouldn't have been doing it. He drinks wine daily. His is not certain of how much he drinks. She thinks he drinks more than he admits. She reports that he last drank alcohol 2 days ago. The patient had a previous fall recently from which he sustained a non-displaced right intertrochanteric fracture. He was seen by orthopedics as an outpatient and this is being managed non-surgically. In the ED today work up included CT head and neck and xray of the hips and pelvis which showed a mildly displaced left intertrochanteric fracture. While the patient was still in the ED, he became significantly more confused and agitated, despite administration of ativan. He required restraints and a 1:1 setting of management. For concern of worsening withdrawal symptoms, he was intubated in the ED. His denies heari ng the patient complains of any chest pain, SOB, abd pain, nausea, vomiting, diarrhea, fever or chills prior to presentation. Patient was subsequently intubated due to unable to protect airways as a result of his alcohol withdrawals and was placed in ICU. Subjective: Patient seen at bedside currently intubated and mechanically ventilated. No acute overnight events however patient's hemoglobin trending has precipitously fallen. Urine output has also been decreased. Objective: Vital signs hemodynamically stable current settings SIMV, PEEP 5, PS of 10, tidal volume 600 with an RR 14. Afebrile, heart rate ranging in the 53 to 56 bpm with a blood pressure 107/73, 14 RR, 100% O2 saturation on mechanical vent. General: Patient is sedated intubated and mechanically ventilated Next HEENT: NCAT. No buccal lesions, intubated Neck: Right IJ appears to be clean dry and intact. No JVD no bruits no lymphadenopathy CV/lungs: S1-S2 within normal limits. RRR. Faint bibasilar rales with decreased breath sounds bibasilarly and no expiratory rhonchi or wheezing noted. Abdomen: Soft nontender nondistended positive bowel sounds all quadrants rectal: Scrotal edema pronounced with indwelling Bailey catheter dark urine with no gross hematuria, decreased urinary output present. Extremities/skin: Bilateral ecchymosis noted to hips. No palpable or crepitus noted with no lesions or blisters, bulla, ulcerative lesions. 2+ pulses dorsalis pedis bilaterally. Edematous upper and lower extremities. Neuro: Grossly intact Labs: Reviewed Imaging studies: Reviewed Assessment/plan: (1) Ventilator associated pneumonia Patient was intubated On 07/24 with a preintubation chest x-rays being clear up until 07/26 showing left sided new pleural effusion with basilar opacity. Interestingly the CT chest without contrast shows no lobar infiltrate however small bilateral pleural effusions are present, along with left anterior rib fractures. Bilateral atelectasis are also present. Continue with medical management, intubated status, on IV vancomycin and Zosyn, Scopace and glycopyrrolate for management of patient's secretions. Patient has now exceeded more than 96 hours of which patient will need to be transferred to a higher level of care for management of ventilator associated pneumonia, with possible bronchoscopy, and the fact that the orthopedic surgeon who has been consulted has deemed this patient high risk to receive what would be a standard left femur fracture repair. Family would like to be transferred to [facility] if any type of transfer is to be under taken. Patient's echocardiogram does not show any vegetations however it is a transthoracic. Ejection fraction of 70-75% with right ventricular enlargement. (2) Acute suspected blood loss anemia secondary to possible underlying hematomas. Per RN black tarry stools. Patient was previously on meloxicam and would query on peptic ulcer disease. Obtain an occult blood test. Continue H&H trending. Will obtain CT abdomen pelvis without contrast to rule out underlying hematomas with possible compression of intra-abdominal structures that may be decreasing urinary output as well as decreasing H&H trending. Due to patient's underlying coronary disease and SC, 1 year prior will transfuse under a less than 8 g/dL threshold protocol. Patient does have iron deficiency anemia, Patient was given 1 dose of IV Ferrlecit, With iron deficiency anemia underlying. (3) Non-anion gap metabolic acidosis as it relates to Possible hypovolemia with blood loss. Trending downward bicarb has been noted on ABG. Despite being on mechanical ventilation. Renal function is conserved. Causes may be undiagnosed renal tubular acidosis patient lacks diarrhea to make a case for GI losses. Lactic acid is normal. No elevated LFTs or renal dysfunction. Would continue to monitor and provide IV fluid support and perfusion to kidneys. Obtain CT abdomen pelvis to rule out intra-abdominal hematoma with compression to adjoining structures. Renal ultrasound to rule out hydronephrosis/nephrol ithiasis or any bladder outlet obstruction. (4) Alcohol withdrawal Requiring intubation Conclusion/Plan: Patient was receiving a Ativan drip has been now placed on IV Ativan based on [facility] protocol. We will continue to monitor for any other associations such as seizures. Currently intubated sedated and mechanically ventilated on a propofol drip. Is continuing with vitamin B12, folic acid, magnesium and multivitamins on banana bag fluids. Echocardiogram does not show any dilated cardiomyopathy. (5) Multiple nutritional and vitamin deficiencies of B12, folic acid, and iron, Secondary to chronic alcohol abuse Patient currently on banana bag, IV fluids, and supplementation to continue (6) Fracture, intertrochanteric, left femur, With prior right intertrochanteric fracture Conclusion/Plan: Pain management with dilaudid IV Dr Jasso (orthopedic) was consulted And has deemed patient a high risk due to his alcohol withdrawal/pneumonia/bilateral hip fractures. Patient likely will require a left hip repair however has been deemed high risk and needs further stabilization to proceed forward with this. Currently right intertrochanteric hip fracture is nonsurgical and was managed as such as an outpatient. Qualifiers: Encounter type: initial encounter Fracture type: closed Fracture alignment: displaced Qualified Code(s): S72.142A - Displaced intertrochanteric fracture of left femur, initial encounter for closed fracture (7) Edematous status. Secondary to third spacing perhaps distributive shock induced. BNP is not elevated, patient likely not moving and as a result of volume overload with most of fluid accumulating in the soft tissues is evident despite the patient's urinary output being so low. Echocardiogram shows a hyperdynamic function of 70- 75% no valvular heart disease. (8) Oliguria Poor urinary output. Obtain retroperitoneal ultrasound. Blood transfusions to follow to perfuse kidneys. Patient to have dopamine restarted despite MAP>70 and more for renal perfusion purposes. Possible HERNAN and and would arterial doppler flow studies but renal function is no impaired at this time. No evidence of septic shock or even cardiogenic shock for that matter. Echocardiogram showed slightly hyperdynamic function of 70-75% ejection fraction with no valvular heart disease. Continue with medical management. IV Lasix in between units for volume/fluid challenge, patient has underlying scrotal edema may have underlying bladder outlet obstruction as result. Renal ultrasound to follow. CT abdomen pelvis to evaluate for intra-abdominal hematoma. Patient had a urine culture on 07/24 showing coag negative staph with 50-100 K may be contaminant. Will repeat UA w/ micro. (9) Hypokalemia Will replace potassium along with checking magnesium and replacing on electrolyte replacement protocol. (10) CAD (coronary artery disease) Conclusion/Plan: Will need to place on aspirin per rectum instead of per NGT as likely black tarry stools observed in setting of suspected upper GI bleed. Will continue daily. Metoprolol on hold due to hypotension. Patient apparently had an SC approximate 1 year ago and with history of a loop recorder. Was previously cleared by cardiology. Medical management for now. Qualifiers: Coronary Disease-Associated Artery/Lesion type: [place] artery [place] vs. transplanted heart: [place] heart Associated angina: without angina Qualified Code(s): I25.10 - Atherosclerotic heart disease of [place] coronary artery without angina pectoris (11) Hyperlipidemia Conclusion/Plan: Resume statin per NGT (12) Hypotension Conclusion/Plan: Metoprolol lisinopril were being placed on no due to hypotension as a results from propofol. Patient to have dopamine restarted despite MAP>70 and more for renal perfusion purposes. May resume this once patient's BPs have stabilized. CODE STATUS: Full code Total critical care time: 30 minutes
[2018-07-28] MEDS: MULTIVITAMIN 10 ML, THIAMINE INJ 100 MG, FOLIC ACID INJ 1 MG in D5.45NS W/20 MEQ KCL 1,... IV SCH (14:41)
[2018-07-28] MEDS ORDERED: MULTIVITAMIN IV SCH (14:51)
[2018-07-28] MEDS ORDERED: FOLIC ACID IV SCH (14:51)
[2018-07-28] MEDS ORDERED: THIAMINE IV SCH (14:51)
[2018-07-28] MEDS ORDERED: [UNRECOGNIZED DRUG - OTHER] IV SCH (14:51)
--- NOTE | 2018-07-28 15:50 | CT Report ---
Reason: Ventilator associated pneumonia Procedure Date: 07/28/2018 Accession Number: [id number] / [id number] Procedure: CT - CHEST WO CPT Code: FULL RESULT: EXAM: CT CHEST EXAM DATE: 07/28/2018 03:21 PM. CLINICAL HISTORY: Ventilator associated pneumonia. COMPARISONS: None. TECHNIQUE: Routine helical CT imaging was performed through the chest. IV contrast: None. Reconstructions: Coronal and sagittal. In accordance with CT protocol optimization, one or more of the following dose reduction techniques were utilized for this exam: automated exposure control, adjustment of mA and/or KV based on patient size, or use of iterative reconstructive technique. FINDINGS: Lungs/Pleura: There are small bilateral pleural effusions. No evidence of lobar infiltrate. There is mild bibasilar atelectasis. There is no evidence of pneumothorax. Endotracheal tube is in place. Mediastinum: Heart size is within normal limits. There are coronary artery calcifications. Right IJ line tip terminates in the low SVC. No enlarged axillary, supraclavicular, mediastinal, or hilar lymph nodes. Bones: There were mild left anterior rib fractures. No clearly acute bony abnormalities are seen. Visualized Abdomen: Unremarkable. Other: None. IMPRESSION: 1. There are small bilateral pleural effusions. 2. There is bibasilar atelectasis. No evidence of lobar infiltrate. 3. No pneumothorax. 4. Heart size is within normal limits. There are coronary artery calcifications. 5. Findings within the abdomen and pelvis are detailed separately. RADIA
[2018-07-28] MEDS ORDERED: diphenhydrAMINE INJ 50 MG/ML VIAL IVP SCH (16:00)
[2018-07-28] MEDS ORDERED: THIAMINE IV ONE (16:00)
[2018-07-28] MEDS ORDERED: DEXTROSE 5% IV ONE (16:00)
[2018-07-28] MEDS: HYDROmorphone 0.5 MG/0.5 ML SYRINGE IVP PRN ×2 (16:21→22:22)
--- NOTE | 2018-07-28 18:43 | Ultrasound Report ---
Reason: Poor urine output. r/o bladder outlet obs Procedure Date: 07/28/2018 Accession Number: [id number] / [id number] Procedure: US - Retroperitoneal CPT Code: FULL RESULT: EXAM: RENAL ULTRASOUND EXAM DATE: 07/28/2018 04:58 PM. CLINICAL HISTORY: Poor urine output. r/o bladder outlet obs. COMPARISON: ABDOMEN/PELVIS W/O 07/28/2018 3:13 PM. TECHNIQUE: Real-time scanning was performed with static images obtained. FINDINGS: Right Kidney: 10.6 x 5.3 x 6.2 cm. Normal echotexture with no stones, contour-deforming masses, or hydronephrosis. Left Kidney: 11.1 x 5.3 x 5.7 cm. Normal echotexture with no stones, contour-deforming masses, or hydronephrosis. Bladder: Not assessed. Other: There is free fluid within the pelvis. IMPRESSION: The kidneys demonstrate no evidence of hydronephrosis. RADIA
[2018-07-28] MEDS ORDERED: DOPamine 800 MG/500 ML 800 MG/500 ML BAG IV SCH (18:50)
[2018-07-28] MEDS: ATORVASTATIN 40 MG TABLET NG SCH (20:16)
[2018-07-29] MEDS: SODIUM CHLORIDE FLUSH 0.9% 10 ML SYRINGE IVP SCH ×8 (00:28→21:26)
[2018-07-29] MEDS: SODIUM CHLORIDE FLUSH 0.9% 10 ML SYRINGE IVP PRN ×3 (01:54→05:36)
[2018-07-29] MEDS: HYDROmorphone 0.5 MG/0.5 ML SYRINGE IVP PRN ×4 (02:56→19:36)
[2018-07-29 05:58] LABS: ALBUMIN 2.1 g/dL (3.2-5.5); ALBUMIN/GLOBULIN RATIO 0.8 (1.0-2.2); BILIRUBIN,TOTAL 3.1 mg/dL (0.2-1.0); CALCIUM 7.5 mg/dL (8.5-10.3); CREATININE 0.5 mg/dL (0.6-1.2); TOTAL PROTEIN 4.8 g/dL (6.7-8.2)
[2018-07-29 06:04] LABS: BASOPHILS # (AUTO) 0.1 10^3/uL (0.0-0.1); EOSINOPHILS # (AUTO) 0.4 10^3/uL (0.0-0.7); EOSINOPHILS % (AUTO) 4.7 %; HGB - HEMOGLOBIN 10.7 g/dL (14.0-18.0); LYMPHOCYTES % (AUTO) 11.1 %; MEAN CORPUSCULAR HEMOGLOBIN 34.2 pg (27.0-31.0); MEAN CORPUSCULAR VOLUME 100.4 fL (80.0-94.0); MEAN PLATELET VOLUME 6.3 fL (7.4-11.4); MONOCYTES # (AUTO) 0.9 10^3/uL (0.0-1.0); MONOCYTES % (AUTO) 10.1 %; NEUTROPHILS # (AUTO) 6.7 10^3/uL (1.5-6.6); NEUTROPHILS % (AUTO) 73.1 %; PLT - PLATELET COUNT 325 10^3/uL (130-450); RED BLOOD COUNT 3.12 10^6/uL (4.70-6.10); RED CELL DISTRIBUTION WIDTH 20.1 % (12.0-15.0); WHITE BLOOD COUNT 9.1 x10^3/uL (4.8-10.8)
[2018-07-29] MEDS: SODIUM CHLORIDE 0.9% 1,000 ML IV SCH (06:51)
--- NOTE | 2018-07-29 07:27 | CT Report ---
Reason: EVALUATE FOR INTRA-ABDOMINAL HEMATOMA Procedure Date: 07/28/2018 Accession Number: [id number] / [id number] Procedure: CT - Abdomen/Pelvis WO CPT Code: FULL RESULT: EXAM: CT ABDOMEN AND PELVIS EXAM DATE: 07/28/2018 03:21 PM. CLINICAL HISTORY: Abdominal pain COMPARISONS: None. TECHNIQUE: Routine axial helical CT imaging was performed through the abdomen and pelvis without IV contrast. Reconstructions: Coronal and sagittal. In accordance with CT protocol optimization, one or more of the following dose reduction techniques were utilized for this exam: automated exposure control, adjustment of mA and/or KV based on patient size, or use of iterative reconstructive technique. FINDINGS: Lung Bases: Findings are detailed separately. Abdominal Organs: Noncontrast images of the abdominal organs are grossly unremarkable. Gallbladder/bile ducts: No significant abnormalities. Peritoneal Cavity: No dilated or thick-walled bowel is seen. There is a small amount of free fluid within the right lower quadrant. There are no enlarged mesenteric or retroperitoneal lymph nodes. No intraperitoneal free air. Pelvic Organs: Bladder catheter is in place. There is mild presacral edema. No enlarged pelvic lymph nodes. Vasculature: No acute vascular abnormalities are seen. Other: There is a comminuted left intertrochanteric femur fracture. There is avulsion fracture to the right greater trochanter. There is diffuse subcutaneous edema. IMPRESSION: 1. No definite evidence of acute intra-abdominal hematoma. 2. There is a small amount of free fluid within the right lower quadrant and pelvis. 3. Solid abdominal organs demonstrate no clearly acute noncontrast abnormalities. 4. No acute gastrointestinal tract abnormalities. Enteric tube tip is in the distal stomach. 5. There are bilateral proximal femur fractures. 6. There is diffuse subcutaneous edema.
[2018-07-29] MEDS ORDERED: POTASSIUM CHLORIDE 20 MEQ/15 ML UDC PO ONE (07:46)
[2018-07-29 08:14] LABS: MAGNESIUM 2.1 mg/dL (1.7-2.8); PHOSPHORUS 3.4 mg/dL (2.5-4.6)
[2018-07-29] MEDS ORDERED: CALCIUM GLUCONATE 1,000 MG in SODIUM CHLORIDE 0.9% 50 ML IV ONE (08:15)
[2018-07-29 08:30] LABS: ABG PCO2 27 mmHg (34-45); ABG PH 7.38 (7.35-7.45); ABG PO2 92 mmHg (80-100)
[2018-07-29 08:31] LABS: ABG BASE EXCESS -8.1 mmol/L (-2.0-3.0); ABG HCO3 15.6 mmol/L (22.0-26.0); ABG OXYGEN SATURATION 97 % (94-98); ABG TCO2 16.4 MMOL/L (21.0-29.0); ALLEN TEST POSITIVE
[2018-07-29] MEDS: ALBUMIN 25% 12.5 GM/50 ML VIAL IV SCH ×3 (08:39→21:23)
[2018-07-29] MEDS: CHLORHEXIDINE GLUCONATE 15 ML UDC PO SCH ×2 (08:43→21:23)
[2018-07-29] MEDS: POLYETHYLENE GLYCOL 3350 17 GM PACKET PO SCH (08:45)
[2018-07-29] MEDS: FAMOTIDINE 20 MG/2 ML VIAL IVP SCH ×2 (08:45→21:22)
[2018-07-29] MEDS: ATORVASTATIN 40 MG TABLET NG SCH (08:46)
[2018-07-29] MEDS ORDERED: SODIUM CHLORIDE INHALATION 3 ML NEB ONE ×2 (09:12→14:30)
[2018-07-29] MEDS: ASPIRIN 300 MG SUPP PR SCH (09:22)
[2018-07-29 09:36] LABS: BILIRUBIN,URINE NEGATIVE (NEGATIVE); GLUCOSE, URINE (UA) NEGATIVE (NEGATIVE); KETONES,URINE (UA) NEGATIVE (NEGATIVE); LEUKOCYTE ESTERASE, URINE NEGATIVE (NEGATIVE); NITRITE,URINE NEGATIVE (NEGATIVE); OCCULT BLOOD,URINE NEGATIVE (NEGATIVE); PH,URINE 5.5 PH (5.0-7.5); PROTEIN,URINE NEGATIVE (NEGATIVE); UROBILINOGEN,URINE 0.2 (NORMAL) E.U./dL (NORMAL)
[2018-07-29 09:38] LABS: CLARITY,URINE CLEAR (CLEAR)
[2018-07-29 10:06] LABS: BACTERIA,URINE Rare /HPF (None Seen); RBC,URINE 0-5 /HPF (0-5); SQUAMOUS EPITHELIAL CELL,UR NONE SEEN (<= Few)
--- NOTE | 2018-07-29 10:24 | MISCELLANEOUS PROVIDER NOTE ---
Miscellaneous Provider Note - - Note: HPI: Patient is a 67 y/o male who presented to the ED with his at bedside after falling at home. The history is mainly provided by the patient's because the patient is currently very confused and unable to provide. She reports that the patient has been falling frequently. He has a loop recorder. He saw cardiology a couple days ago and was cleared. Today he fell in their sun room. He had been disoriented prior to that. His found him with one shoe off, his belt undone and he was talking as though in conversation with someone, but there was no one else in the room. She points out that earlier today he was mowing the lawn but adds that he really shouldn't have been doing it. He drinks wine daily. His is not certain of how much he drinks. She thinks he drinks more than he admits. She reports that he last drank alcohol 2 days ago. The patient had a previous fall recently from which he sustained a non-displaced right intertrochanteric fracture. He was seen by orthopedics as an outpatient and this is being managed non-surgically. In the ED today work up included CT head and neck and xray of the hips and pelvis which showed a mildly displaced left intertrochanteric fracture. While the patient was still in the ED, he became significantly more confused and agitated, despite administration of ativan. He required restraints and a 1:1 setting of management. For concern of worsening withdrawal symptoms, he was intubated in the ED. His denies heari ng the patient complains of any chest pain, SOB, abd pain, nausea, vomiting, diarrhea, fever or chills prior to presentation. Patient was subsequently intubated due to unable to protect airways as a result of his alcohol withdrawals and was placed in ICU. Subjective: Patient has been doing well on weaning off propofol with good spontaneous movement of limbs and periodically opens his eyes. Urinary output has improved per RN. No acute overnight events. Objective: Vital signs hemodynamically stable current settings SIMV, Afebrile, heart rate ranging in the 53 to 56 bpm with a blood pressure 107/73, 14 RR, 100% O2 saturation on mechanical vent. General: Patient is semi-sedated intubated and mechanically ventilated. Patient is intermittently awake. HEENT: NCAT. No buccal lesions, intubated Neck: Right IJ appears to be clean dry and intact. No JVD no bruits no lymphadenopathy CV/lungs: S1-S2 within normal limits. RRR. CTA BL. Abdomen: Soft nontender nondistended positive bowel sounds all quadrants rectal: Scrotal edema with indwelling Bailey catheter dark urine with no gross hematuria, decreased urinary output present. Extremities/skin: Bilateral ecchymosis noted to hips. No palpable or crepitus noted with no lesions or blisters, bulla, ulcerative lesions. 2+ pulses dorsalis pedis bilaterally. Edematous upper and lower extremities. Neuro: Grossly intact Labs: Reviewed Imaging studies: Reviewed Assessment/plan: (1) Small bilateral pleural effusions with associated BL atelectasis seen on chest CT CT chest essentially has ruled out ventilator associated pneumonia which was previously seen on serial chest x-rays post intubation. However this may have been an over read and essentially patient only has bilateral pleural effusions. De-escalation from IV vancomycin and Zosyn were completed yesterday already. Patient remains intubated and weaning trial off of vent with decreasing doses of propofol have been initiated. (2) Endotracheal intubation status. Continue with general guidelines for mechanical ventilation (Abcde bundle). Adjust ventilation by changing Minute ventilation=Tidal volume times respiratory rate. Ventilate to pH, not to PA CO2, improving oxygenation: Increase FiO2, PEEP or inspiratory time (if refractory hypoxia present), avoid paralytics if possible, continue sedation titrated to patient comfort, daily interruption of continuous sedation and assess readiness to extubate daily, use and active weaning protocol (Daily spontaneous awakening trial and spontaneous breathing trial), CAM-ICU for delirium assessment, early mobility essential within 72 hours of mechanical ventilation. Prophylaxis: Head of bed elevation to 45 degrees, chlorhexidine or worsens, low molecular weight or unfractionated heparin, sequential compression devices, proton pump inhibitor, subglottic glottic suctioning. Spontaneous breathing trial (SBT) to be initiated once criteria is met, will attempt to be performed by respiratory therapy service with a CPAP. Daily ventilator weaning to continue with pressure support weaning: PEEP 5 to 8 cm of H20, PS 6 to 20 cm of H20 to keep respiratory rate less than 30/minute, gradually wean PS by 2 to 4 cm of water as tolerated. If patient is unable to tolerate PS ventilation, use a back-up rate with a comfortable mode of ventilation. (3) Metabolic Encephalopathy Despite being off propofol for 3 hours patient was unable to be successfully weaned off mechanical ventilation due to continued encephalopathy with more of a lethargy type component. Unclear if patient is still withdrawing however Ativan will be given as a bolus dose and then reassessed. We will also check ammonia level as patient has alcohol abuse and dependence without prior dx liver cirrhosis with hyperbilirubinemia with normal LFTs on labs. (4) Acute suspected blood loss anemia s/p 2 units PRBC's. Patient had 2 units transfused with intermittent Lasix in between. Occult blood test is pending, patient had CT abdomen pelvis with visualization of bilateral proximal femur fractures with no associated hematomas either surrounding solid abdominal organs or next of femur fractures. In addition, retroperitoneal ultrasound only shows free fluid which does not represent hemorrhaging. This is also seen on CT imaging with no evidence of hematoma formation. Patient has underlying iron deficiency, b12, and folic acid deficiencies. Patient has received 1 dose of IV Ferrlecit. Will continue with H/H trending. Transfusion under liberal protocol of less than 8 g/dL due to underlying coronary artery disease. (5) Non-anion gap metabolic acidosis. Unclear of the cause at this point. Patient is not on Acetazolamide, lacks chronic or acute diarrhea or does not have hyperchloremia to suggest hyperparathyroidism with an increase renal bicar bonate loss. Trending downward bicarb has been noted on ABG. pH is normal, pco2/bicarb levels low, p02 normal levels; likely compensated; with a primary non-AG metabolic acidosis with secondary respiratory alkalosis. Despite being on mechanical ventilation. Renal function is conserved. Retroperitoneal ultrasound does not show any obstructive processes such as hydronephrosis or nephrolithiasis. In addition renal tubular acidosis may be present. Bicarbonate levels have been stable thus far with lactic acid being at 0.6 and no hyperglycemic excursions with a CK level ordered and LFTs unremarkable to indicate a underlying rhabdomyolysis. (6) Alcohol withdrawal Requiring intubation Conclusion/Plan: Patient remains on CIWA protocol with IV Ativan. Continuing on multivitamins IV, replenishing B12, folic acid, magnesium and other deficiencies. (8) Multiple nutritional and vitamin deficiencies of B12, folic acid, and iron, Secondary to chronic alcohol abuse Patient also has associated macrocytosis. Patient currently on banana bag, IV fluids, and supplementation to continue. (9) Fracture, intertrochanteric, left femur, With prior right intertrochanteric fracture Conclusion/Plan: Pain management with dilaudid IV Dr Jasso (orthopedic) was consulted and Although he is deemed patient high risk initially patient will be deemed a surgical candidate after patient is weaned off vent and management of other issues. Patient likely will require a left hip repair. Echocardiogram did not show any motion wall abnormalities and was somewhat hyperdynamic. Once patient is weaned off the vent patient may likely be a surgical candidate for repair of left intertrochanteric hip fractu re. Currently right intertrochanteric hip fracture is nonsurgical and was managed as such as an outpatient. Qualifiers: Encounter type: initial encounter Fracture type: closed Fracture alignment: displaced Qualified Code(s): S72.142A - Displaced intertrochanteric fracture of left femur, initial encounter for closed fracture (10) Hypoalbuminemia with associated Edematous status and 3rd spacing. Secondary to third spacing perhaps distributive shock induced. BNP is not elevated, patient likely not moving and as a result of volume overload with most of fluid accumulating in the soft tissues is evident despite the patient's urinary output being so low. Echocardiogram shows a hyperdynamic function of 70- 75% no valvular heart disease. Patient to be initiated on IV albumin 12.5 g (25%) cc 3 times daily for 48 hours; This will likely improve oncotic pressure. (11) Oliguria Patient has improved urinary output with dopamine at 2 mcg/kg to maintain UO>0.5 ml/kg/hr. Retroperitoneal ultrasound shows free fluid in pelvis otherwise un remarkable. CT abdomen pelvis does not show intra-abdominal hematoma or other masslike effects. Patient had a urine culture on 07/24 showing coag negative staph with 50-100 K may be contaminant. Will repeat UA w/ micro to eval for casts, etc. (12) CAD (coronary artery disease) Conclusion/Plan: Will need to place on aspirin per rectum instead of per NGT as likely black tarry stools observed in setting of suspected upper GI bleed. Will continue daily. Metoprolol on hold due to hypotension. Patient apparently had an SC approximate 1 year ago and with history of a loop recorder. Was previously cleared by cardiology. Medical management for now. Qualifiers: Coronary Disease-Associated Artery/Lesion type: [place] artery [place] vs. transplanted heart: [place] heart Associated angina: without angina Qualified Code(s): I25.10 - Atherosclerotic heart disease of [place] coronary artery without angina pectoris (13) Nutrition: Patient having residuals of up to 400 mL and has been discontinued and off the tube feedings which were previously at 50 mL/h will have dietitian readjust rate. (14) Hyperlipidemia Conclusion/Plan: Resume statin per NGT CODE STATUS: Full code
[2018-07-29] MEDS ORDERED: DOPamine 800 MG/500 ML 800 MG/500 ML BAG IV SCH (10:41)
[2018-07-29] MEDS ORDERED: FOLIC ACID IV SCH (14:00)
[2018-07-29] MEDS ORDERED: THIAMINE IV SCH (14:00)
[2018-07-29] MEDS ORDERED: MULTIVITAMIN IV SCH (14:00)
[2018-07-29] MEDS ORDERED: [UNRECOGNIZED DRUG - OTHER] IV SCH (14:00)
[2018-07-29] MEDS: LORazepam 2 MG/ML VIAL IVP PRN (15:29)
[2018-07-29] MEDS: PROPOFOL 1000 MG/100 ML 100 ML IV SCH (15:35)
[2018-07-29 16:24] LABS: KETONES, SERUM (ACETEST) NEGATIVE (NEGATIVE)
[2018-07-29 16:26] LABS: CK- CREATINE KINASE 34 IU/L (22-269)
[2018-07-29] MEDS: SODIUM CHLORIDE 0.9% 500 ML IV PRN (16:59)
[2018-07-29] MEDS ORDERED: SODIUM CHLORIDE 0.9% 1,000 ML IV SCH (18:31)
[2018-07-30] MEDS: SODIUM CHLORIDE FLUSH 0.9% 10 ML SYRINGE IVP PRN ×5 (02:59→05:56)
[2018-07-30] MEDS: LORazepam 2 MG/ML VIAL IVP PRN (02:59)
[2018-07-30] MEDS: PROPOFOL 1000 MG/100 ML 100 ML IV SCH (03:07)
[2018-07-30] MEDS: HYDROmorphone 0.5 MG/0.5 ML SYRINGE IVP PRN ×4 (03:23→14:15)
[2018-07-30 03:38] LABS: VBG PH 7.377 (7.31-7.41)
[2018-07-30 03:47] LABS: ALBUMIN 2.4 g/dL (3.2-5.5); BILIRUBIN,TOTAL 1.7 mg/dL (0.2-1.0); CALCIUM 7.9 mg/dL (8.5-10.3); CREATININE 0.4 mg/dL (0.6-1.2); TOTAL PROTEIN 4.7 g/dL (6.7-8.2)
[2018-07-30 03:49] LABS: BASOPHILS # (AUTO) 0.1 10^3/uL (0.0-0.1); BASOPHILS % (AUTO) 0.8 %; EOSINOPHILS # (AUTO) 0.4 10^3/uL (0.0-0.7); EOSINOPHILS % (AUTO) 4.9 %; HGB - HEMOGLOBIN 9.5 g/dL (14.0-18.0); LYMPHOCYTES # (AUTO) 1.2 10^3/uL (1.5-3.5); LYMPHOCYTES % (AUTO) 15.6 %; MEAN CORPUSCULAR HGB CONC 33.8 g/dL (32.0-36.0); MEAN CORPUSCULAR VOLUME 100.8 fL (80.0-94.0); MEAN PLATELET VOLUME 6.6 fL (7.4-11.4); MONOCYTES % (AUTO) 12.9 %; NEUTROPHILS % (AUTO) 65.8 %; PLT - PLATELET COUNT 301 10^3/uL (130-450); RED BLOOD COUNT 2.78 10^6/uL (4.70-6.10); RED CELL DISTRIBUTION WIDTH 19.6 % (12.0-15.0); WHITE BLOOD COUNT 7.6 x10^3/uL (4.8-10.8)
[2018-07-30 03:59] LABS: MAGNESIUM 2.1 mg/dL (1.7-2.8); PHOSPHORUS 3.3 mg/dL (2.5-4.6)
[2018-07-30] MEDS: ALBUMIN 25% 12.5 GM/50 ML VIAL IV SCH ×2 (05:30→13:46)
[2018-07-30] MEDS: FAMOTIDINE 20 MG/2 ML VIAL IVP SCH (08:38)
[2018-07-30] MEDS: ATORVASTATIN 40 MG TABLET NG SCH (08:43)
[2018-07-30] MEDS: SODIUM CHLORIDE FLUSH 0.9% 10 ML SYRINGE IVP SCH ×2 (08:51)
[2018-07-30] MEDS: POLYETHYLENE GLYCOL 3350 17 GM PACKET PO SCH (08:51)
[2018-07-30] MEDS: CHLORHEXIDINE GLUCONATE 15 ML UDC PO SCH (08:52)
[2018-07-30] MEDS: HEPARIN 5,000 UNIT/ML VIAL SUBQ SCH ×2 (09:01→16:01)
--- NOTE | 2018-07-30 09:23 | MISCELLANEOUS PROVIDER NOTE ---
Miscellaneous Provider Note - - Note: HPI: Patient is a 67 y/o male who presented to the ED with his at bedside after falling at home. The history is mainly provided by the patient's because the patient is currently very confused and unable to provide. She reports that the patient has been falling frequently. He has a loop recorder. He saw cardiology a couple days ago and was cleared. Today he fell in their sun room. He had been disoriented prior to that. His found him with one shoe off, his belt undone and he was talking as though in conversation with someone, but there was no one else in the room. She points out that earlier today he was mowing the lawn but adds that he really shouldn't have been doing it. He drinks wine daily. His is not certain of how much he drinks. She thinks he drinks more than he admits. She reports that he last drank alcohol 2 days ago. The patient had a previous fall recently from which he sustained a non-displaced right intertrochanteric fracture. He was seen by orthopedics as an outpatient and this is being managed non-surgically. In the ED today work up included CT head and neck and xray of the hips and pelvis which showed a mildly displaced left intertrochanteric fracture. While the patient was still in the ED, he became significantly more confused and agitated, despite administration of ativan. He required restraints and a 1:1 setting of management. For concern of worsening withdrawal symptoms, he was intubated in the ED. His denies heari ng the patient complains of any chest pain, SOB, abd pain, nausea, vomiting, diarrhea, fever or chills prior to presentation. Patient was subsequently intubated due to unable to protect airways as a result of his alcohol withdrawals and was placed in ICU. Subjective: Patient with persistent encephalopathy and lethargy despite being off propofol for the second day. No acute overnight events. No fevers, GI or symptoms, maculopapular rashes, or arrhythmias on telemetry. Objective: Vital signs hemodynamically stable , on CPAP trial, unable to tolerate. Afebrile, Heart rate of 71 bpm, blood pressure 126/58, RR 14, 97% O2 saturation on CPAP. General: Patient Appears lethargic on CPAP and with a upward-left sided gaze. No response to verbal command but is arousable. HEENT: DAJUAN. Upward left gaze. NCAT. No buccal lesions, intubated on CPAP. Neck: Right IJ appears to be clean dry and intact. No JVD no bruits no lymphadenopathy CV/lungs: S1-S2 within normal limits. RRR. CTA BL. Abdomen: Soft nontender nondistended positive bowel sounds all quadrants rectal: Scrotal edema with indwelling Bailey catheter dark urine with no gross hematuria, decreased urinary output present. Extremities/skin: Bilateral ecchymosis noted to hips. No palpable or crepitus noted with no lesions or blisters, bulla, ulcerative lesions. 2+ pulses dorsalis pedis bilaterally. Edematous upper R>L hand/forearms Neuro: Intubated, off propofol. Babinski's negative. Spontaneous movements of lower extremities. Babinski sign negative. Pupils reactive. Cough reflex present. No response to verbal command. Labs: Reviewed. Imaging studies: Reviewed Assessment/plan: (1) Encephalopathy of unclear etiology Despite being off propofol for second day with a SBT, patient was unable to be successfully weaned off mechanical ventilation due to continued encephalopathy with more of a lethargy type component. Concern for neurological cause? CT head stroke protocol was reviewed with radiologist and no acute ischemic insults however there was possible artifacts at the margarito area. MRI brain to follow. Patient has been off Ativan drip and has been given intermittent doses of Dilaudid however no high CIWA observed. Unclear of etiology at this point. Ammonia level was normal. FA/iron def deficiency would not produce this type of encephalopathy. Prior Head CT on 07/24 was unremarkable. Blood cultures to follow. Wernicke's encephalopathy is on the differential. (2) Endotracheal intubation status. Continue with general guidelines for mechanical ventilation (ABCDE bundle). Adjust ventilation by changing Minute ventilation=Tidal volume times respiratory rate. Ventilate to pH, not to PA CO2, improving oxygenation: Increase FiO2, PEEP or inspiratory time (if refractory hypoxia present), avoid paralytics if possible, continue sedation titrated to patient comfort, daily interruption of continuous sedation and assess readiness to extubate daily, use and active weaning protocol (Daily spontaneous awakening trial and spontaneous breathing trial), CAM-ICU for delirium assessment, early mobility essential within 72 hours of mechanical ventilation. Prophylaxis: Head of bed elevation to 45 degrees, chlorhexidine or worsens, low molecular weight or unfractionated heparin, sequential compression devices, proton pump inhibitor, subglottic glottic suctioning. Spontaneous breathing trial (SBT) to be initiated once criteria is met, will attempt to be performed by respiratory therapy service with a CPAP. Daily ventilator weaning to continue with pressure support weaning: PEEP 5 to 8 cm of H20, PS 6 to 20 cm of H20 to keep respiratory rate less than 30/minute, gradually wean PS by 2 to 4 cm of water as tolerated. If patient is unable to tolerate PS ventilation, use a back-up rate with a comfortable mode of ventilation. (3) Small bilateral pleural effusions with associated BL atelectasis seen on chest CT CT chest essentially has ruled out ventilator associated pneumonia which was previously seen on serial chest x-rays post intubation. However this may have been an over read and essentially patient only has bilateral pleural effusions. No IV antibiotics currently. Patient has failed one spontaneous breathing trial, will attempt a second SBT today. Currently off of propofol, and on CPAP trial. (4) Acute suspected blood loss anemia Patient had 2 units transfused with intermittent Lasix in between. Occult blood test is pending, patient had CT abdomen pelvis with visualization of bilateral proximal femur fractures with no associated hematomas either surrounding solid abdominal organs or next of femur fractures. In addition, retroperitoneal ultrasound only shows free fluid which does not represent hemorrhaging. No evidence of intra-abdominal hematomas. Patient has underlying iron deficiency and folic acid deficiencies. Patient has received 1 dose of IV Ferrlecit. Will continue with H/H trending which has showed a slight down trend. Would obtain RC, LDH, Haptoglobin, tbili 1.7. Transfusion under liberal protocol of less than 8 g/dL due to underlying coronary artery disease. (5) Staphylococcus Saprophyticus UTI Urine culture grew out 50-100 K. However unclear if this is symptomatic or contributing to encephalopathy ongoing. Repeat UA on 07/29 did not show pyuria. Patient also received vancomycin and Zosyn for the initial couple days, which would have treated this UTI. Blood cultures to follow. (6) Non-anion gap metabolic acidosis. Unclear of the cause at this point. Patient is not on Acetazolamide, lacks chronic or acute diarrhea or does not have hyperchloremia to suggest hyperparathyroidism with an increase renal bicarbonate loss.Levels have improved on chem panel today. Blood gases reveal a pH of 7.391, PCO2 of 30.2, PO2 of 91, bicarb of 18.3 SaO2 97% O2 on CPAP, PS of 10, PEEP of 5, FiO2 of 27%, RR 23, TV 430. Patient likely compensated; with a primary non-AG metabolic acidosis with secondary respiratory alkalosis. Renal function is conserved. Retroperitoneal ultrasound does not show any obstructive processes such as hydronephrosis or nephrolithiasis. In addition renal tubular acidosis may be present. A lactic acid being at 0.6 and no hyperglycemic excursions, serum ketones negative and with CK level and LFTs unremarkable to indicate a underlying rhabdomyolysis. * As a potential concern there is the incidence of some cases of Ativan drip having the formation of unaccounted for a osmole's such as propylene glycol which may accumulate to toxicity levels however patient does not present with high anion gap metabolic acidosis. (7) Alcohol withdrawal Requiring intubation Conclusion/Plan: Patient remains on CIWA protocol with IV Ativan, however has not been used. Continuing on multivitamins IV, replenishing B12, folic acid, magnesium and other deficiencies. (8) Multiple nutritional and vitamin deficiencies of B12, folic acid, and iron, Secondary to chronic alcohol abuse Will discontinue banana bag, Placed on high-dose thiamine for perhaps concerns for Wernicke's encephalopathy. Oral feedings to resume if a prokinetic can be used without sedative properties. (9) Fracture, intertrochanteric, left femur, With prior right intertrochanteric fracture Conclusion/Plan: Pain management with dilaudid IV Dr Jasso (orthopedic) was consulted and Although he is deemed patient high risk initially patient will be deemed a surgical candidate after patient is weaned off vent and management of other issues. Patient likely will require a left hip repair. Echocardiogram did not show any motion wall abnormalities and was somewhat hyperdynamic. Once patient is weaned off the vent patient may likely be a surgical candidate for repair of left intertrochanteric hip fracture. However, if patient fails to spontaneous breathing trials which is likely going to be the case will need to transfer for higher level of care to determine etiology of patient's continued encephalopathy. Currently right intertrochanteric hip fracture is nonsurgical and was managed as such as an outpatient. Qualifiers: Encounter type: initial encounter Fracture type: closed Fracture alignment: displaced Qualified Code(s): S72.142A - Displaced intertrochanteric fracture of left femur, initial encounter for closed fracture (10) Hypoalbuminemia with associated Edematous status and 3rd spacing. Secondary to third spacing perhaps distributive shock induced. BNP is not elevated, patient likely not moving and as a result of volume overload with most of fluid accumulating in the soft tissues is evident despite the patient's urinary output being so low. Echocardiogram shows a hyperdynamic function of 70- 75% no valvular heart disease. Patient to be initiated on IV albumin 12.5 g (25%) cc 3 times daily for 48 hours; This will likely improve oncotic pressure. (11) Oliguria Patient has improved urinary output with dopamine at 2 mcg/kg to maintain UO>0.5 ml/kg/hr. Retroperitoneal ultrasound shows free fluid in pelvis otherwise unremarkable. CT abdomen pelvis does not show intra-abdominal hematoma or other masslike effects. Patient had a urine culture on 07/24 showing coag negative staph with 50-100 K may be contaminant. Repeat UA shows no pyuria, casts, or crystals. (12) CAD (coronary artery disease) Conclusion/Plan: There was mention of black tarry stools however occult blood tests ordered and not done and patient continues to be on aspirin per rectum which would be preferable instead of NG tube administration. Will continue to monitor daily. Metoprolol on hold due to hypotension. Patient apparently had an [place] approximate 1 year ago and with history of a loop recorder. Was previously cleared by cardiology. Medical management for now. Qualifiers: Coronary Disease-Associated Artery/Lesion type: [place] artery [place] vs. transplanted heart: [place] heart Associated angina: without angina Qualified Code(s): I25.10 - Atherosclerotic heart disease of [place] coronary artery witho ut angina pectoris (13) Nutrition: Patient having residuals of up to 400 mL and has been discontinued and off the tube feedings which were previously at 50 mL/h will have dietitian readjust rate. Consider prokinetic IV azithromycin in order to resume tube feedings however QT prolongation is of concern. Reglan may also be administered however this would provide additional sedation and contact contributing to persistent encephalopathy. (14) Hyperlipidemia Conclusion/Plan: Resume statin per NGT CODE STATUS: Full code Patient has been intubated more than 96 hours and consideration for higher level of care to be assessed. Total critical care time 30 minutes
[2018-07-30 09:24] LABS: ABG PCO2 30 mmHg (34-45); ABG PH 7.39 (7.35-7.45); ABG PO2 91 mmHg (80-100)
[2018-07-30 09:25] LABS: ABG HCO3 18.3 mmol/L (22.0-26.0); ABG OXYGEN SATURATION 97 % (94-98); ALLEN TEST POSITIVE
--- NOTE | 2018-07-30 10:08 | CT Report ---
Reason: encephalopathic Procedure Date: 07/30/2018 Accession Number: [id number] / [id number] Procedure: CT - Head W/O Stroke Protocol CPT Code: FULL RESULT: EXAM: CT HEAD EXAM DATE: 07/30/2018 09:58 AM. CLINICAL HISTORY: Encephalopathic. Acute stroke protocol. COMPARISON: CERVICAL SPINE W/O 07/24/2018 6:32 PM. TECHNIQUE: Multiaxial CT images were obtained from the foramen magnum to the vertex. Reformats: Sagittal and coronal. IV contrast: None. In accordance with CT protocol optimization, one or more of the following dose reduction techniques were utilized for this exam: automated exposure control, adjustment of mA and/or KV based on patient size, or use of iterative reconstructive technique. FINDINGS: Parenchyma: No intraparenchymal hemorrhage. No evidence of mass, midline shift, or CT findings of acute infarction. Jerome-white differentiation is distinct. Diffuse chronic microangiopathic white matter changes are evident. Extraaxial Spaces: Normal for age. No subdural or epidural collections identified. Ventricles: The ventricles and cortical sulci are enlarged, consistent with age-related tissue loss. Sinuses and orbits: Imaged paranasal sinuses, orbits, and mastoids show no significant abnormality. Bones: No evidence of fracture or calvarial defect. Other: None. IMPRESSION: Generalized age-related cortical atrophic changes without evidence of acute intracranial abnormality. [facility] The critical test notification system was initiated by Dr. Kelvin Anne at 10:06 AM on 07/30/2018. ADDENDUM: 07/30/18 10:09 Additional CLINICAL HISTORY: Recent alcohol withdrawal. Unable to extubate, despite the lack of airspace disease on chest CT. No evidence for intracranial hemorrhage or large recent infarct by present CT. Please note, artifacts at the skull base could limit CT evaluation. Consider MRI if clinically warranted. The above critical test findings were discussed with JAIRO Dahl by Dr. Kelvin Anne at 10:09 AM on 07/30/2018.
[2018-07-30] MEDS ORDERED: LORazepam 2 MG/ML VIAL IVP PRN (10:34)
[2018-07-30] MEDS ORDERED: SODIUM CHLORIDE 0.9% 1,000 ML IV SCH (10:36)
[2018-07-30] MEDS: ASPIRIN 300 MG SUPP PR SCH (10:54)
--- NOTE | 2018-07-30 11:26 | Discharge Plan ---
Discharge Plan Disposition: 02 Transfer Acute Care Hosp Condition: Critical No Smoking: If you smoke, Please STOP! Call for help. Follow-up with: Dottie Mcneill MD [Provider Admit Priv/Credential] - 2 Weeks
--- NOTE | 2018-07-30 11:28 | DISCHARGE SUMMARY ---
"Discharge Summary Admit Date: 07/24/18 Discharge Date: 07/30/18 Discharging Provider: Dr. Dahl Primary Care Provider: Mikel Frankel Condition at Discharge: Critical Discharge Disposition: 02 Transfer Acute Care Hosp - DIAGNOSES Admission Diagnoses: (1) Alcohol withdrawal requiring endotracheal intubation (2) Fracture, intertrochanteric, left femur (3) CAD (coronary artery disease) (4) Hyperlipidemia (5) Hypertension (6) Leukocytosis Discharge Diagnoses with Status of Each Condition: (1) Encephalopathy of unclear etiology, Stable (2) Endotracheal intubation status, Stable (3) Small bilateral pleural effusions with associated BL atelectasis seen on chest CT, Stable (4) Acute suspected blood loss anemia Status post 2 units PRBCs, stable (5) Staphylococcus Saprophyticus UTI, Resolved (6) Non-anion gap metabolic acidosis, Improved-stable (7) Alcohol withdrawal Requiring intubation, Resolved (8) Multiple nutritional and vitamin deficiencies of B12, folic acid, and iron, Secondary to chronic alcohol abuse, Stable (9) Fracture, intertrochanteric, left femur, With prior right intertrochanteric fracture, Stable (10) Hypoalbuminemia with associated Edematous status and 3rd spacing, Stable (11) Oliguria, Improved-stable (12) CAD (coronary artery disease), Stable (13) Nutrition, Poor but stable, on tube feedings (14) Hyperlipidemia, Stable (15) Reactive leukocytosis, resolved - HPI History of Present Illness: Patient is a 67 y/o male who presented to the ED with his at bedside after falling at home. The history is mainly provided by the patient's because the patient is currently very confused and unable to provide. She reports that the patient has been falling frequently. He has a loop recorder. He saw cardiology a couple days ago and was cleared. Today he fell in their sun room. He had been disoriented prior to that. His found him with one shoe off, his belt undone and he was talking as though in conversation with someone, but there was no one else in the room. She points out that earlier today he was mowing the lawn but adds that he really shouldn't have been doing it. He drinks wine daily. His is not certain of how much he drinks. She thinks he drinks more than he admits. She reports that he last drank alcohol 2 days ago. The patient had a previous fall recently from which he sustained a non-displaced right intertrochanteric fracture. He was seen by orthopedics as an outpatient and this is being managed non-surgically. In the ED today work up included CT head and neck and xray of the hips and pelvis which showed a mildly displaced left intertrochanteric fracture. While the patient was still in the ED, he became significantly more confused and agitated, despite administration of ativan. He required restraints and a 1:1 setting of management. For concern of worsening withdrawal symptoms, he was intubated in the ED. His denies hearing the patient complains of any chest pain, SOB, abd pain, nausea, vomiting, diarrhea, fever or chills prior to presentation. Patient was subsequently intubated due to unable to protect airways as a result of his alcohol withdrawals and was placed in ICU. - CONSULTS | PROCEDURES Consultations: Dr. Abhinav Almendarez Procedures: Right IJ, pantoja cath plcmt, IV albumin infusions, 2 units PRBC's, Intubation, Sedation and mechanical ventilation, failed to spontaneous breathing trials on CPAP. - HOSPITAL COURSE Hospital Course: Patient is a 67-year-old male who presented to the emergency department with his at bedside after falling at home. Patient has a history of syncope and alcohol with chronic abuse. The history is mainly provided by the patient's because the patient is currently very confused and unable to provide a th orough history and was essentially diagnosed with florid alcohol withdrawals in the emergency department. Patient was subsequently intubated sedated and mechanically ventilated. According to patient's he drinks wine daily, his is not certain of how much he drinks or quantity or duration. Patient reports that his last drink was 2 days prior to his initial admission. The patient had previously fallen recently from which he sustained a nondisplaced right intertrochanteric fracture. He was seen by orthopedic service as an outpatient and was being managed as a nonsurgical case. In the emergency department patient had a CT of the head and neck, x-ray of the hips and pelvis which showed a mildly displaced left intertrochanteric fracture attributable to the fall that he sustained prior to admission. Initially a concern for ventilator associated pneumonia was ascertained on post intubated serial chest x-rays which showed some consolidation at the level of the bases however this was excluded by a CT chest, CT abdomen pelvis also exclude intra-abdominal hematoma for which patient required 2 units of packed red blood cells, previously was on meloxicam. Concern for upper GI bleeding was ascertained, however occult blood testing was ordered and no positive guaiac was documented. Aspirin per rectum was continued as patient has a history of an NM approximately 1 year ago and was on the loop recorder and was recently cleared by cardiology. IV Zosyn/vancomycin was subsequently discontinued due to lack of evidence of ventilator associated pneumonia. In addition, patient was treated for hypoalbuminemia for third spacing which required IV albumin infusions, oliguria attributable to possible distributive shock however no source of infection was ascertained other than a urine culture that showed coag negative Staphylococcus saprophyticus 50 K-100 K, deemed to be likely be a contaminant. A repeat UA did not show will reveal pyuria or casts of any kind nor crystals. Patient likely had completed eradication of this UTI which was hard to ascertain whether this was symptomatic or not. In addition, patient developed a non-anion gap metabolic acidosis which may or may not have been attributable to IV Ativan drip or unaccounted acidemia. Serum ketones, Lactic acid, CK, LFTs, and other etiologies were excluded that would otherwise contribute to a metabolic cause. Encephalopathy was multifactorial and unclear at this point as patient failed to spontaneous breathing trials with a normal ammonia level and the possibility of patient having a Warnicke's encephalopathy was likely evident as patient was started on D5 NS in the ED with multivitamins. Patient did have iron deficiency and folic acid deficiencies which would not have precipitated persistent encep halopathy and lethargy. Patient had been off of an Ativan drip with no evidence of alcohol withdrawals noted. Propofol had been discontinued from approximately 3 hours on 2 successive days with SBT trials on CPAP. ABGs on 07/30 showed a pH of 7.391, PCO2 of 30.2, PO2 of 91, bicarb of 18.3, SaO2 97% on CPAP with a tidal volume of 430 PS of 10 and a PEEP of 5, FiO2 of 27%. Patient had haptoglobin reticular cell count along with LDH and Chery direct test ordered to evaluate for possible underlying hemolysis as hemoglobin after 2 units had gone from 10.7-9.5 with no upper GI blood loss and or evidence of recurrent melanotic stools. In addition to patient having been placed on aspirin per rectum due to history of coronary artery disease and prior NM, he was also placed on DVT prophylaxis with heparin 5K subcu 3 times daily due to patient's immobilization and bilateral intertrochanteric fractures that would place him at high risk for DVTs. Orthopedic service and initially had deemed him to be high risk due to intubated status, alcohol withdrawals, and a ventilator associated pneumonia however these have been excluded and patient only required to be extubated without the need for continued IV Ativan or IV antibiotics at this time. However, patient has failed to consecutive days of spontaneous breathing trials, That would mandate a higher level of care transfer to pulmonology/bandage maker to manage case with possible neurology and orthopedic service to assist with patient's clinical deterioration in terms of lethargy and persistent encephalopathy. In addition, patient has an upward left sided gaze and although Babinski's and no overt neurological deficits are noted as patient has spontaneous movement lower extremities concern for possible ischemic insult. 2 CT head imaging studies 1 on 07/24 and 1 on 07/30 did not reveal ischemic insults, microangiopathy were noted with possible margarito artifact. MRI of the brain was ordered. However patient will likely need to be transferred to higher level of care as patient has been intubated more than 96 hours that would necessitate further evaluation by a multi-disciplinary team. Patient's , Who initially came with patient can be contacted at [phone]. Will update on patient's condition, plan of care, and notification of transfer to [facility] which was the preferred location for patient to be transferred. Dr La accepted patient. - ALLERGIES Allergies/Adverse Reactions: Allergies Allergy/AdvReac Type Severity Reaction Status Date / Time bee venom protein (honey bee) Allergy Anaphylaxis Verified 07/24/18 17:56 - MEDICATIONS Home Medications: Ambulatory Orders Medication Instructions Recorded Confirmed Aspirin Supp 300 mg ID DAILY supp 07/30/18 Atorvastatin [Lipitor] 40 mg NG DAILY tablet 07/30/18 LORazepam INJ [Ativan Inj (Vial)] 1 mg IVP Q2H PRN vial 07/30/18 - PHYSICAL EXAM AT DISCHARGE General Appearance: positive: Other (Sedated, intubated, mechanically ventilated) Eyes Bilateral: positive: Normal inspection, PERRL, EOMI ENT: positive: ENT inspection nml, Pharynx nml, No signs of dehydration Neck: positive: Nml inspection, Thyroid nml, No JVD, Trachea midline Respiratory: positive: Chest non-tender, No respiratory distress, Breath sounds nml Cardiovascular: positive: Regular rate & rhythm, No murmur, No gallop Peripheral Pulses: positive: 2+ Abdomen: positive: Non-tender Skin: positive: Color nml, No rash Extremities: positive: Pedal edema, Other (Spontaneous movement of extremities. 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 Will need orthopedic service to follow- up once patient has repair of left intertrochanteric fracture in 2 to 3 weeks as a follow-up to orthopedic service. - TIME SPENT Time Spent in Discharge (Minutes): 35"
[2018-07-30] MEDS ORDERED: ERYTHROMYCIN LACTOBIONATE INJ 500 MG in SODIUM CHLORIDE 0.9% 250 ML IV SCH (12:00)
[2018-07-30] MEDS ORDERED: THIAMINE INJ 500 MG in SODIUM CHLORIDE 0.9% 50 ML IV SCH (14:00)
[2018-07-30] MEDS ORDERED: SODIUM CHLORIDE INHALATION 3 ML NEB ONE (17:49)
--- NOTE | 2018-07-30 18:52 | Discharge Plan ---
Discharge Plan Disposition: 02 Transfer Acute Care Hosp Condition: Critical Activity Restrictions: Additional Comments (Depending if patient is able to be extubated) No Smoking: If you smoke, Please STOP! Call for help. Follow-up with: Mikel Frankel MD [Credentialed Staff Provider] - 2 Weeks
[2018-07-30 18:54] VITALS: BP 145/84
== END 2018-07-30 17:15 | disposition short-term general hospital (02) | DRG 535 ==
LOC: EDUNIT# → ED 17:43 → ICU 20:23
PROVIDERS: ADMIT Internal Medicine; ATTEND Family Medicine
PROC: 5A1955Z Respiratory Ventilation, Greater than 96 Consecutive Hours (ICD-10-PCS; principal; 2018-07-24)
PROC: 0BH17EZ Insertion of Endotracheal Airway into Trachea, Via Natural or Artificial Opening (ICD-10-PCS; 2018-07-24)
PROC: 02HV33Z Insertion of Infusion Device into Superior Vena Cava, Percutaneous Approach (ICD-10-PCS; 2018-07-25)
PROC: 30233N1 Transfusion of Nonautologous Red Blood Cells into Peripheral Vein, Percutaneous Approach (ICD-10-PCS; 2018-07-28)
DX: S72.142A Displaced intertrochanteric fracture of left femur, initial encounter for closed fracture (principal); G93.41 Metabolic encephalopathy; F10.231 Alcohol dependence with withdrawal delirium; J90 Pleural effusion, not elsewhere classified; J98.11 Atelectasis; D62 Acute posthemorrhagic anemia; N39.0 Urinary tract infection, site not specified; E87.2 Acidosis; E87.1 Hypo-osmolality and hyponatremia; F10.239 Alcohol dependence with withdrawal, unspecified; S09.90XA Unspecified injury of head, initial encounter; W19.XXXA Unspecified fall, initial encounter; I25.10 Atherosclerotic heart disease of native coronary artery without angina pectoris; G89.29 Other chronic pain; M54.9 Dorsalgia, unspecified; I10 Essential (primary) hypertension; J45.909 Unspecified asthma, uncomplicated; Z79.82 Long term (current) use of aspirin; Z91.030 Bee allergy status; D50.9 Iron deficiency anemia, unspecified; B95.7 Other staphylococcus as the cause of diseases classified elsewhere; E53.8 Deficiency of other specified B group vitamins; E78.5 Hyperlipidemia, unspecified; R34 Anuria and oliguria; S72.111D Displaced fracture of greater trochanter of right femur, subsequent encounter for closed fracture with routine healing; W19.XXXD Unspecified fall, subsequent encounter; I25.2 Old myocardial infarction; Z78.1 Physical restraint status; D72.829 Elevated white blood cell count, unspecified; I95.9 Hypotension, unspecified; E80.6 Other disorders of bilirubin metabolism; T46.6X6A Underdosing of antihyperlipidemic and antiarteriosclerotic drugs, initial encounter; T46.4X6A Underdosing of angiotensin-converting-enzyme inhibitors, initial encounter; T44.7X6A Underdosing of beta-adrenoreceptor antagonists, initial encounter; E87.6 Hypokalemia
CPT/HCPCS: 31500; 36415; 36600; 51703; 70450; 71045; 71250; 72125; 73522; 73552; 74176; 76770; 80048; 80053; 81001; 82009; 82140; 82330; 82550; 82607; 82746; 82803; 83540; 83605; 83690; 83735; 83880; 84100; 84134; 84466; 84484; 85025; 85610; 86850; 86900; 86901; 86920; 87086; 87150; 93005; 93306; 94002; 94003; 94770; 96374; 96375; 96376; 99291; A6250; A9270; J1170; J1200; J2060; J2916; J3370; J3411; J3490; J7040; P9016; P9047; 80202; 80320; 81003; 82272; 83010; 83615; 86880; 87040; 99284

== ENCOUNTER 2021-03-27 06:48 | Outpatient (CLI) | payer OTHER ==
--- NOTE | 2021-03-27 12:59 | MRI Report ---
PROCEDURE: Brain W/O INDICATIONS: GAIT/BALANCE IMPAIRMENT, CHRONIC LOW BACK PAIN TECHNIQUE: Noncontrast axial T1 spin echo, axial T2 fast spin echo, sagittal and axial FLAIR, coronal T2 fast sp in echo, axial gradient echo, axial diffusion and ADC through the brain. COMPARISON: None. FINDINGS: Image quality: Excellent. CSF Spaces: Basal cisterns are patent. No extra-axial fluid collections. Ventricles are normal in size and shape. Brain: No intracranial masses or hemorrhage. Mild diffuse cerebral volume loss. Moderate degree of patchy high FLAIR signal within the periventricular and subcortical white matter. Jerome/white matter i nterface is normal. Brainstem appears normal. Diffusion-weighted images demonstrate no acute ischem ic insult. No chronic ischemic insults. Normal intravascular flow voids are present. Skull and face: Calvarium has normal marrow signal. Orbits appear normal. Sinuses: Mild mucosal thickening within the ethmoid and maxillary sinuses bilaterally. Sinuses and m astoids are otherwise clear. IMPRESSION: 1. Volume loss and small vessel ischemic disease. 2. Sinus disease. 3. No acute process. No recent infarct. Reviewed by: Diana Taylor MD on 03/27/2021 12:58 PM PST Approved by: Diana Taylor MD on 03/27/2021 12:58 PM PST Station ID: [id number]
--- NOTE | 2021-03-27 15:01 | MRI Report ---
PROCEDURE: Lumbar Spine W/O INDICATIONS: GAIT/BALANCE IMPAIRMENT, CHRONIC LOW BACK PAIN TECHNIQUE: Noncontrast sagittal T1 spin echo and T2 fast echo, sagittal STIR, axial T1 and T2 fast spin echo thr ough the lumbar spine. In cases with scoliosis, additional coronal T2 fast spin echo may be performe d. COMPARISON: Lumbar spine MRI dated 04/04/2011. CT dated 07/28/2018. FINDINGS: Image quality: Excellent. Alignment and Curvature: 5 lumbar type vertebral bodies are present by CT. There is mild grade 1 retr olisthesis of L1 on L2, L2 on L3, and L4 on L5.. Bone Marrow: Marrow is of normal overall signal. No acute vertebral body compression fractures. Mo derate reactive signal throughout the endplates of the lumbar and lower thoracic spine. Spinal Cord: Conus medullaris terminates at the upper L2 level. Visualized cord demonstrates normal signal and size. Paraspinous Soft Tissues: No paravertebral masses. T12-L1: Moderate disc height loss and desiccation. Mild facet hypertrophy bilaterally. Mild epidural lipomatosis. Mild canal stenosis. Mild bilateral foraminal stenosis. No significant change. L1-L2: Moderate disc height loss and desiccation. Mild diffuse disc bulge/osteophyte. Mild facet a nd ligament flavum hypertrophy. Mild epidural lipomatosis. Mild canal stenosis. Mild bilateral forami nal stenosis. No significant change. L2-L3: Moderate disc height loss and desiccation. Moderate diffuse disc bulge/osteophyte. Mild fac et and ligament flavum hypertrophy. Mild epidural lipomatosis. There is increased, severe canal steno sis. Mild right and moderate left foraminal stenosis is unchanged. L3-L4: Moderate disc height loss and desiccation. Mild diffuse disc bulge/osteophyte. Mild facet an d ligament flavum hypertrophy. Mild epidural lipomatosis. Severe canal stenosis is unchanged. No mccauley ge in moderate bilateral foraminal stenosis. L4-L5: Moderate disc height loss and desiccation. Mild diffuse disc bulge/osteophyte. Mild facet an d ligament flavum hypertrophy. Moderate epidural lipomatosis. Increased, severe canal stenosis. Incre ased, severe right foraminal stenosis. Increased, moderate left foraminal stenosis. Right L4 nerve ro ot compression, new since the prior examination. L5-S1: Moderate disc height loss and desiccation. Mild diffuse disc bulge/osteophyte. Mild facet a nd ligament flavum hypertrophy. Mild epidural lipomatosis. Moderate canal stenosis. Severe right and moderate to severe left foraminal stenosis. Right L5 nerve root compression. IMPRESSION: 1. Multilevel degenerative disc and facet disease, in addition to epidural lipomatosis and ligamentum flavum hypertrophy. 2. Multilevel canal stenoses, worst at L2-L3, L3-L4, and L4-L5, where there are severe canal stenoses . 3. Multilevel foraminal stenoses, worst at L4-L5 and L5-S1 where there is associated intraforaminal n erve root compression. Reviewed by: Diana Taylor MD on 03/27/2021 2:59 PM PST Approved by: Diana Taylor MD on 03/27/2021 2:59 PM PST Station ID: [id number]
== END 2021-03-27 06:49 | disposition home or self-care (01) ==
LOC: DI 06:48
DX: I67.82 Cerebral ischemia (principal); M47.816 Spondylosis without myelopathy or radiculopathy, lumbar region; M47.817 Spondylosis without myelopathy or radiculopathy, lumbosacral region; M51.36 Other intervertebral disc degeneration, lumbar region; M48.061 Spinal stenosis, lumbar region without neurogenic claudication; M51.37 Other intervertebral disc degeneration, lumbosacral region; M48.07 Spinal stenosis, lumbosacral region; E88.2 Lipomatosis, not elsewhere classified

== ENCOUNTER 2021-04-19 08:00 | Outpatient (CLI) | payer OTHER | END 2021-04-19 23:59 | disposition home or self-care (01) | LOC: LAB.N 08:00 | PROVIDERS: ATTEND Physician Assistant | DX: U07.1 COVID-19 (principal) ==

== ENCOUNTER 2023-11-28 13:07 | Emergency (ER) | payer OTHER ==
--- NOTE | 2023-11-28 14:14 | ED Physician Documentation ---
History of Present Illness - Stated complaint Stated Complaint: BEE STING,RT HAND PX - Chief complaint Chief Complaint: Allergic Rx - History obtained from History obtained from: Patient - History of Present Illness Timing: Today Pain level max: 1 Pain level now: 0 - Additonal information Additional information: Patient is a 73-year-old male who presents to the emergency department with a bee sting to the right pinky finger. He states that there is mild swelling. No pain. No difficulty speaking, swallowing or breathing. He states he tried to use his epinephrine pen but was unable to get it to work so came into the emergency department. No rash. No other symptoms. No chest pain or chest tightness. Occurring about 2 hours prior to arrival. Review of Systems Constitutional: denies: Fever, Chills Respiratory: denies: Dyspnea, Cough, Wheezing GI: denies: Vomiting PD PAST MEDICAL HISTORY - Past Medical History Past Medical History: Yes Cardiovascular: Hypertension, High cholesterol, Coronary artery disease Respiratory: Asthma Neuro: None Endocrine/Autoimmune: None GI: None : None Psych: None Musculoskeletal: Chronic back pain Derm: None - Past Surgical History Past Surgical History: No - Present Medications Home Medications: Ambulatory Orders Medication Instructions Recorded Confirmed Aspirin Supp [Aspirin] 300 mg ID DAILY supp 07/30/18 Atorvastatin [Lipitor] 40 mg NG DAILY tablet 07/30/18 LORazepam INJ [Ativan Inj (Vial)] 1 mg IVP Q2H PRN vial 07/30/18 - Allergies Allergies/Adverse Reactions: Allergies Allergy/AdvReac Type Severity Reaction Status Date / Time bee venom protein (honey bee) Allergy Anaphylaxis Verified 11/28/23 13:10 - Social History Does the pt smoke?: No Smoking Status: Never smoker Does the pt drink ETOH?: Yes Does the pt have substance abuse?: No - Immunizations Immunizations are current?: Yes - POLST Patient has POLST: No POLST Status: Full Code PD ED PE NORMAL - Vitals Vital signs reviewed: Yes - General General: Alert and oriented X 3, No acute distress - HEENT HEENT: PERRL, Moist mucous membranes, Pharynx benign, Other (No stridor, no wheezing. Normal phonation) - Neck Neck: Supple, no meningeal sign - Cardiac Cardiac: RRR - Respiratory Respiratory: No respiratory distress, Clear bilaterally - Abdomen Abdomen: Soft, Non tender, Non distended - Derm Derm: Warm and dry - Extremities Extremities: Other (Mild erythema to the right fifth digit. Very minimal swelling. Otherwise normal examination of all 4 extremities.) - Neuro Neuro: Alert and oriented X 3 - Psych Psych: Normal mood, Normal affect Results - Vitals Vitals: Vital Signs - 24 hr 11/28/23 11/28/23 13:10 14:22 Temperature 36.5 C 36.5 C Heart Rate 83 79 Respiratory 16 15 Rate Blood Pressure 140/80 H 138/76 H O2 Saturation 94 95 Oxygen O2 Source Room air PD Medical Decision Making - ED course Complexity details: considered differential, d/w patient ED course: Patient with a very mild localized reaction to a bee sting. No evidence of anaphylaxis or generalized reaction. Given a dose of Zyrtec and prednisone. Patient is well-appearing, nontoxic. Afebrile. Normal phonation. No trismus. No stridor. No wheezing. We did review the indications for use of EpiPen including wheezing, stridor, trouble breathing, throat swelling and the need for emergent evaluation should he need the EpiPen. Patient counseled regarding signs and symptoms for which I believe and urgent re-evaluation would be necessary. Patient with good understanding of and agreement to plan and is comfortable going home at this time This document was made in part using voice recognition software. While efforts are made to proofread this document, sound alike and grammatical errors may occur. Departure - Departure Disposition: 01 Home, Self Care Clinical Impression: Bee sting Qualifiers: Encounter type: initial encounter Injury intent: undetermined intent Qualified Code(s): T63.444A - Toxic effect of venom of bees, undetermined, initial encounter Condition: Good Instructions: ED Bite Sting Insect Local Allergic React Follow-Up: ESEQUIEL BAUM MD [Primary Care Provider] - Comments: You did not have any evidence of a systemic reaction today or anaphylaxis. I would recommend taking Zyrtec daily for the next 2 to 3 days. Please return if you worsen. Please return especially for chest tightness, shortness of breath, difficulty speaking, swallowing or other new or worrisome changes. Forms: PCP List Discharge Date/Time: 11/28/23 14:22
[2023-11-28] MEDS: CETIRIZINE 10 MG TABLET PO STA (14:16)
[2023-11-28] MEDS: predniSONE 20 MG TABLET PO STA (14:16)
[2023-11-28 14:32] VITALS: BP 138/76; O2SAT 95
== END 2023-11-28 14:22 | disposition home or self-care (01) ==
LOC: ED 13:07
DX: R22.31 Localized swelling, mass and lump, right upper limb (principal); L53.9 Erythematous condition, unspecified; T63.441A Toxic effect of venom of bees, accidental (unintentional), initial encounter
CPT/HCPCS: 99283; A9270; J7512